=== PATIENT | female | born 1935 | race Caucasian/White ===

== ENCOUNTER 2017-05-04 10:00 | Outpatient (RCR) | payer MEDICARE, BC, SELFPAY ==
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
--- NOTE | 2017-05-15 07:23 | HP.PTDCNRP_ITS ---
HP - Discharge Summary (1) - Patient Information ADRIANNA SIDDIQUI was seen in my office for initial evaluation on 04/16/17. The following Plan of Care was established for this patient: Initial Frequency: 2x /Week Initial Duration: 4 Weeks - Anticipated Interventions Patient/Client Instruction: Educate patient on: Condition, Plan of Care For the Purpose of:: To decrease pain, To increase ROM, To improve muscle performance and motor function, To improve ability to perform ADL's, To increase tolerance to activity/condition/position, To improve ability of physical actions for home/community/work/leisure, To improve gait and locomotor functions, To improve health of tissue, To decrease soft tissue restriction, To increase flexibility/ROM, To improve endurance, To improve ability to perform tasks related to life management Therapeutic Exercise to Include: Strength training, Flexibilty training, Active ROM For the Purpose of:: To decrease pain, To increase ROM, To improve muscle performance and motor function, To increase tolerance to activity/condition/ position, To improve ability of physical actions for home/community/work/leisure , To improve gait and locomotor functions, To improve health of tissue, To decrease soft tissue restriction, To increase flexibility/ROM, To improve ability to perform tasks related to life management IF ES: Yes Cryotherapy (ice pack, ice massage): Yes Thermo therapy (hot pack): Yes Ultrasound (thermal/non thermal): Yes For the Purpose of:: To decrease pain, To increase ROM, To improve nutrient delivery to tissue, To increase oxygenation perfusion, To improve health of tissue, To decrease soft tissue restriction This patient was last seen in our office 05/04/17. Pertinent comments regarding their Physical therapy will appear below: This patient seen for knee pain for strengthening quad/hams ,ROM.flexablity. Patient is doing well progressing well with decreasing pain and improving function. At this point I will be discontinuing this patient from physical therapy. I would be happy to see this patient again in the future if found appropriate by the physician. Thank you! Win Cobb, PT,
== END 2017-05-04 19:00 | disposition home or self-care (01) ==
LOC: PT 10:00
PROVIDERS: Family Provider Family Medicine Geriatric Medicine; PCP Family Medicine Geriatric Medicine; Visit Provider Family Medicine Geriatric Medicine
DX: M17.9 Osteoarthritis of knee, unspecified (principal)
CPT/HCPCS: 97110; 97162

== ENCOUNTER → 2017-06-02 09:37 | Outpatient (CLI) | payer MEDICARE, BC, SELFPAY ==
--- NOTE | 2017-06-02 09:41 | VDLE_ITS ---
Reason For Study: venous insufficiency RIGHT LEFT CFV is compressible, spontaneous, phasic, CFV is compressible, spontaneous, phasic, competent and demonstrates normal competent, and demonstrates normal augmentation. augmentation. FV is compressible, spontaneous, phasic, FV is compressible, spontaneous, phasic, competent and demonstrates normal competent and demonstrates normal augmentation. augmentation. POP V is compressible, spontaneous, phasic, POP V is compressible, spontaneous, phasic, competent and demonstrates normal competent and demonstrates normal augmentation. augmentation. T/P Trunk is compressible. T/P Trunk is compressible. PTV is compressible. PTV is compressible. RT PerV is compressible. LT PerV is compressible. S-F Junction is incompetent for greater S-F Junction is incompetent for greater than .5 seconds. than .5 seconds. GSV is incompetent throughout for greater GSV is incompetent throughout for greater than .5 seconds. GSV measures .823 x .890 than .5 seconds. GSV measures .412 x .452 cm. cm. SSV is incompetent for greater than .5 SSV is incompetent for greater than .5 seconds. SSV measures .392 x .379 cm. seconds. SSV measures .183 x .208 cm. Procedure ASV at the mid thigh is incompetent for Exam performed in department. greater than .5 seconds. ASV measures .255 The exam was diagnostic. x .289 cm. Interpretation Summary Deep veins of the lower extremities are bilaterally patent and compressible segmentally. There is no evidence of deep vein thrombosis on either side. Valvular competence appears intact within the proximal deep venous systems bilaterally. The greater saphenous veins appear bilaterally patent and compressible segmentally. Sapheno-femoral junctions are bilaterally incompetent . Segmental valvular incompetence is noted within the greater saphenous veins bilaterally. Small saphenous veins are patent and incompetent bilaterally. The left accessory saphenous vein in the left mid- thigh is incompetent. Ordering Physician: Sandrita Cooley Performed By: Keegan Orozco RVDianne
--- NOTE | 2017-06-07 11:01 | LEAS ---
Arterial Study - Arterial Study Arterial Study: This is a 81-year-old female with a history of peripheral arterial occlusive disease. She is brought to the noninvasive vascular laboratory at this time for the purpose of bilateral noninvasive lower extremity arterial assessment. Doppler signal assessment was used to evaluate the pulses at ankle level bilaterally. The posterior tibial and dorsalis pedis pulses were triphasic bilaterally. Segmental limb pressures were obtained bilaterally. The right ankle pressure, as determined by posterior tibial pulse, was measured at 186 mmHg. The right ankle pressure, as determined by dorsalis pedis pulse, was measured at 170 mmHg. The right digital pressure was measured at 139 mmHg. The left ankle pressure, as determined by posterior tibial pulse, was measured at 186 mmHg. The left ankle pressure, as determined by dorsalis pedis pulse, was measured at 167 mmHg. The left digital pressure was measured at 141 mmHg. Pulse-volume recordings were obtained bilaterally and segmentally. Waveform amplitudes appeared to be satisfactory at all levels bilaterally, including low thigh, calf, ankle, and digital levels. Resting ankle-brachial indices were calculated bilaterally. The resting right ankle-brachial index was calculated to be 1.24. The resting left ankle-brachial index was calculated to be 1.24. Digital-brachial indices were calculated bilaterally. The right digital-brachial index was calculated to be 0.93. The left digital-brachial index was calculated be 0.94. Impression: Based upon the findings of this resting noninvasive lower extremity arterial study, there is no evidence of significant atherosclerotic peripheral arterial occlusive disease in the lower extremities bilaterally. Triphasic waveforms are noted at ankle level bilaterally. Resting ankle-brachial indices were bilaterally normal. Digital-brachial indices were also normal bilaterally. In summary, this represents a normal resting noninvasive lower extremity arterial study bilaterally.
--- NOTE | 2017-06-07 11:04 | LEAS_ITS ---
Arterial Study - Arterial Study Arterial Study: This is a 81-year-old female with a history of peripheral arterial occlusive disease. She is brought to the noninvasive vascular laboratory at this time for the purpose of bilateral noninvasive lower extremity arterial assessment. Doppler signal assessment was used to evaluate the pulses at ankle level bilaterally. The posterior tibial and dorsalis pedis pulses were triphasic bilaterally. Segmental limb pressures were obtained bilaterally. The right ankle pressure, as determined by posterior tibial pulse, was measured at 186 mmHg. The right ankle pressure, as determined by dorsalis pedis pulse, was measured at 170 mmHg. The right digital pressure was measured at 139 mmHg. The left ankle pressure, as determined by posterior tibial pulse, was measured at 186 mmHg. The left ankle pressure, as determined by dorsalis pedis pulse, was measured at 167 mmHg. The left digital pressure was measured at 141 mmHg. Pulse-volume recordings were obtained bilaterally and segmentally. Waveform amplitudes appeared to be satisfactory at all levels bilaterally, including low thigh, calf, ankle, and digital levels. Resting ankle-brachial indices were calculated bilaterally. The resting right ankle-brachial index was calculated to be 1.24. The resting left ankle- brachial index was calculated to be 1.24. Digital-brachial indices were calculated bilaterally. The right digital- brachial index was calculated to be 0.93. The left digital-brachial index was calculated be 0.94. Impression: Based upon the findings of this resting noninvasive lower extremity arterial study, there is no evidence of significant atherosclerotic peripheral arterial occlusive disease in the lower extremities bilaterally. Triphasic waveforms are noted at ankle level bilaterally. Resting ankle-brachial indices were bilaterally normal. Digital-brachial indices were also normal bilaterally. In summary, this represents a normal resting noninvasive lower extremity arterial study bilaterally.
== END ==
PROVIDERS: Family Provider Family Medicine Geriatric Medicine; PCP Family Medicine Geriatric Medicine; Visit Provider Podiatrist
DX: I70.213 Atherosclerosis of native arteries of extremities with intermittent claudication, bilateral legs (principal); I87.2 Venous insufficiency (chronic) (peripheral); R60.0 Localized edema; M79.604 Pain in right leg; M79.605 Pain in left leg; I73.89 Other specified peripheral vascular diseases
CPT/HCPCS: 93923; 93970

== ENCOUNTER → 2017-07-22 12:04 | Outpatient (CLI) | payer MEDICARE, BC, SELFPAY ==
[2017-07-22 13:13] LABS: Absolute Lymphocyte Count 1.21 X10^3/ul (0.83-4.51); Absolute Neutrophil Count 2.4 X10^3/uL (2.0-7.7); Basophil# 0.01 X10^3/uL; Basophil% 0.2 % (0-1); Eosinophil# 0.19 X10^3/uL; Eosinophils% 4.6 % (0-5); Hematocrit 35.7 % (37-47); Hemoglobin 11.4 g/dl (12.0-15.0); Lymphocyte # 1.21 X10^3/ul (4.0); Lymphocyte % 29.2 % (19-41); Mean Corp Hgb Conc 31.9 g/gl (32-36); Mean Corpuscular Hgb 30.2 pg (27.0-32.0); Mean Corpuscular Volume 94.4 fL (81-99); Mean Platelet Vol. 10.4 fl (6.2-12.0); Monocyte# 0.32 X10^3/uL; Monocyte% 7.7 % (0-10); Neutrophil % 58.1 % (47-70); POSITIVE COUNT NO; POSITIVE DIFFERENTIAL NO; POSITIVE MORPHOLOGY NO; Platelet Count 224 K/mm3 (150-450); RBC Distribution Width CV 13.6 % (11.6-14.6); RBC Distribution Width SD 44.2 fl (35.1-43.9); Red Blood Count 3.78 M/mm3 (4.2-5.4); White Blood Count 4.1 K/mm3 (4.4-11.0)
[2017-07-22 13:46] LABS: Vitamin D,25 Hydroxy 43.7 ng/mL (29.95-100.01)
[2017-07-22 13:55] LABS: ALB/GLOB Ratio 1.3 RATIO (0.9-2.4); AST(SGOT) 14 U/L (15-37); Alanine Aminotransfer ALT/SGPT 23 U/L (13-56); Albumin, Serum 3.9 g/dL (3.2-5.0); Alkaline Phosphatase 66 U/L (45-117); Anion Gap 7 (5-15); BUN 16 mg/dL (7-18); BUN/Creat Ratio 19.9 RATIO (10-20); Calcium,Total 9.1 mg/dL (8.5-10.1); Chloride 109 mmol/L (98-107); Creatinine, Serum 0.81 mg/dL (0.55-1.02); EST Glomerular Filtration Rate 73 mL/min (>60); Est Glom Filt Rate - Afr Amer 88 mL/min (>60); Globulin 3.1 g/dL (2.2-4.2); Glucose 116 mg/dL (74-106); Potassium 4.2 mmol/L (3.5-5.1); Sodium Level 144 mmol/L (136-145); Thyroid Stim Hormone (TSH) 0.54 uIU/mL (0.358-3.74)
== END ==
PROVIDERS: Family Provider Family Medicine Geriatric Medicine; PCP Family Medicine Geriatric Medicine; Visit Provider Family Medicine Geriatric Medicine
DX: E11.9 Type 2 diabetes mellitus without complications (principal); I10 Essential (primary) hypertension; E55.9 Vitamin D deficiency, unspecified
CPT/HCPCS: 36415; 80053; 82306; 84443; 85025

== ENCOUNTER → 2017-10-28 11:03 | Outpatient (CLI) | payer MEDICARE, BC, SELFPAY ==
[2017-10-28 12:34] LABS: Absolute Lymphocyte Count 1.28 X10^3/ul (0.83-4.51); Absolute Neutrophil Count 2.6 X10^3/uL (2.0-7.7); Basophil# 0.02 X10^3/uL; Basophil% 0.4 % (0-1); Eosinophil# 0.16 X10^3/uL; Eosinophils% 3.6 % (0-5); Hematocrit 33.8 % (37-47); Hemoglobin 11.2 g/dl (12.0-15.0); Lymphocyte # 1.28 X10^3/ul (4.0); Lymphocyte % 28.6 % (19-41); Mean Corp Hgb Conc 33.1 g/gl (32-36); Mean Corpuscular Volume 93.6 fL (81-99); Mean Platelet Vol. 10.3 fl (6.2-12.0); Monocyte# 0.42 X10^3/uL; Monocyte% 9.4 % (0-10); Neutrophil # 2.59 X10^3/uL (2.7-7.7); Platelet Count 227 K/mm3 (150-450); RBC Distribution Width CV 13.2 % (11.6-14.6); RBC Distribution Width SD 43.2 fl (35.1-43.9); Red Blood Count 3.61 M/mm3 (4.2-5.4); White Blood Count 4.5 K/mm3 (4.4-11.0)
[2017-10-28 12:37] LABS: POSITIVE COUNT NO; POSITIVE DIFFERENTIAL NO; POSITIVE MORPHOLOGY NO
[2017-10-28 12:55] LABS: Vitamin D,25 Hydroxy 32.2 ng/mL (29.95-100.01)
[2017-10-28 13:19] LABS: ALB/GLOB Ratio 1.2 RATIO (0.9-2.4); AST(SGOT) 15 U/L (15-37); Alanine Aminotransfer ALT/SGPT 26 U/L (13-56); Albumin, Serum 3.8 g/dL (3.2-5.0); Alkaline Phosphatase 73 U/L (45-117); Anion Gap 8 (5-15); BUN 18 mg/dL (7-18); BUN/Creat Ratio 19.5 RATIO (10-20); Calcium,Total 9.4 mg/dL (8.5-10.1); Chloride 106 mmol/L (98-107); Creatinine, Serum 0.92 mg/dL (0.55-1.02); EST Glomerular Filtration Rate 62 mL/min (>60); Est Glom Filt Rate - Afr Amer 75 mL/min (>60); Globulin 3.3 g/dL (2.2-4.2); Glucose 115 mg/dL (74-106); Potassium 4.3 mmol/L (3.5-5.1); Protein, Total 7.1 g/dL (6.4-8.2); Sodium Level 142 mmol/L (136-145); Thyroid Stim Hormone (TSH) 0.82 uIU/mL (0.358-3.74)
== END ==
PROVIDERS: Family Provider Family Medicine Geriatric Medicine; PCP Family Medicine Geriatric Medicine; Visit Provider Family Medicine Geriatric Medicine
DX: E11.9 Type 2 diabetes mellitus without complications (principal); E55.9 Vitamin D deficiency, unspecified; I10 Essential (primary) hypertension; N39.0 Urinary tract infection, site not specified
CPT/HCPCS: 36415; 80053; 82306; 84443; 85025; 87086; 87088

== ENCOUNTER → 2018-01-07 10:12 | Outpatient (CLI) | payer MEDICARE, BC, SELFPAY ==
[2018-01-07 12:24] LABS: Absolute Lymphocyte Count 1.24 X10^3/ul (0.83-4.51); Absolute Neutrophil Count 3.1 X10^3/uL (2.0-7.7); Basophil# 0.01 X10^3/uL; Basophil% 0.2 % (0-1); Eosinophil# 0.19 X10^3/uL; Eosinophils% 3.8 % (0-5); Hematocrit 34.6 % (37-47); Hemoglobin 11.1 g/dl (12.0-15.0); Lymphocyte # 1.24 X10^3/ul (4.0); Lymphocyte % 25.1 % (19-41); Mean Corp Hgb Conc 32.1 g/gl (32-36); Mean Corpuscular Hgb 30.3 pg (27.0-32.0); Mean Corpuscular Volume 94.5 fL (81-99); Mean Platelet Vol. 10.4 fl (6.2-12.0); Monocyte# 0.38 X10^3/uL; Monocyte% 7.7 % (0-10); Neutrophil # 3.11 X10^3/uL (2.7-7.7); Platelet Count 211 K/mm3 (150-450); RBC Distribution Width CV 13.2 % (11.6-14.6); RBC Distribution Width SD 43.7 fl (35.1-43.9); Red Blood Count 3.66 M/mm3 (4.2-5.4); White Blood Count 4.9 K/mm3 (4.4-11.0)
[2018-01-07 12:28] LABS: POSITIVE COUNT NO; POSITIVE DIFFERENTIAL NO; POSITIVE MORPHOLOGY NO
[2018-01-07 12:39] LABS: Vitamin D,25 Hydroxy 38.6 ng/mL (29.95-100.01)
[2018-01-07 12:42] LABS: ALB/GLOB Ratio 1.1 RATIO (0.9-2.4); AST(SGOT) 16 U/L (15-37); Alanine Aminotransfer ALT/SGPT 25 U/L (13-56); Albumin, Serum 3.8 g/dL (3.2-5.0); Alkaline Phosphatase 72 U/L (45-117); Anion Gap 7 (5-15); BUN 17 mg/dL (7-18); BUN/Creat Ratio 18.9 RATIO (10-20); Calcium,Total 9.2 mg/dL (8.5-10.1); Chloride 106 mmol/L (98-107); EST Glomerular Filtration Rate 64 mL/min (>60); Est Glom Filt Rate - Afr Amer 77 mL/min (>60); Globulin 3.4 g/dL (2.2-4.2); Glucose 118 mg/dL (74-106); Potassium 4.2 mmol/L (3.5-5.1); Protein, Total 7.2 g/dL (6.4-8.2); Sodium Level 142 mmol/L (136-145); Thyroid Stim Hormone (TSH) 0.44 uIU/mL (0.358-3.74)
== END ==
PROVIDERS: Family Provider Family Medicine Geriatric Medicine; PCP Family Medicine Geriatric Medicine; Visit Provider Family Medicine Geriatric Medicine
DX: E11.9 Type 2 diabetes mellitus without complications (principal); E55.9 Vitamin D deficiency, unspecified; I10 Essential (primary) hypertension
CPT/HCPCS: 36415; 80053; 82306; 84443; 85025

== ENCOUNTER → 2018-07-08 12:14 | Outpatient (CLI) | payer MEDICARE, BC, SELFPAY ==
[2018-07-08 14:30] LABS: Absolute Lymphocyte Count 1.42 X10^3/ul (0.83-4.51); Absolute Neutrophil Count 2.9 X10^3/uL (2.0-7.7); Basophil# 0.01 X10^3/uL; Basophil% 0.2 % (0-1); Eosinophil# 0.21 X10^3/uL; Eosinophils% 4.3 % (0-5); Hematocrit 36.9 % (37-47); Hemoglobin 11.8 g/dl (12.0-15.0); Lymphocyte # 1.42 X10^3/ul (4.0); Lymphocyte % 29.1 % (19-41); Mean Corpuscular Hgb 29.9 pg (27.0-32.0); Mean Corpuscular Volume 93.4 fL (81-99); Mean Platelet Vol. 10.5 fl (6.2-12.0); Monocyte# 0.38 X10^3/uL; Monocyte% 7.8 % (0-10); Neutrophil # 2.86 X10^3/uL (2.7-7.7); Neutrophil % 58.6 % (47-70); Platelet Count 230 K/mm3 (150-450); RBC Distribution Width CV 13.6 % (11.6-14.6); RBC Distribution Width SD 45.1 fl (35.1-43.9); Red Blood Count 3.95 M/mm3 (4.2-5.4); White Blood Count 4.9 K/mm3 (4.4-11.0)
[2018-07-08 14:32] LABS: POSITIVE COUNT NO; POSITIVE DIFFERENTIAL NO; POSITIVE MORPHOLOGY NO
[2018-07-08 15:01] LABS: ALB/GLOB Ratio 1.1 RATIO (0.9-2.4); AST(SGOT) 16 U/L (15-37); Alanine Aminotransfer ALT/SGPT 23 U/L (13-56); Alkaline Phosphatase 79 U/L (45-117); Anion Gap 7 (5-15); BUN 17 mg/dL (7-18); BUN/Creat Ratio 19.3 RATIO (10-20); Calcium,Total 9.5 mg/dL (8.5-10.1); Chloride 106 mmol/L (98-107); Creatinine, Serum 0.88 mg/dL (0.55-1.02); EST Glomerular Filtration Rate 65 mL/min (>60); Est Glom Filt Rate - Afr Amer 79 mL/min (>60); Globulin 3.6 g/dL (2.2-4.2); Glucose 121 mg/dL (74-106); Potassium 4.4 mmol/L (3.5-5.1); Protein, Total 7.6 g/dL (6.4-8.2); Sodium Level 142 mmol/L (136-145); Thyroid Stim Hormone (TSH) 2.01 uIU/mL (0.358-3.74); Vitamin D,25 Hydroxy 30.5 ng/mL (29.95-100.01)
== END ==
PROVIDERS: Family Provider Family Medicine Geriatric Medicine; PCP Family Medicine Geriatric Medicine; Visit Provider Family Medicine Geriatric Medicine
DX: E11.9 Type 2 diabetes mellitus without complications (principal); E55.9 Vitamin D deficiency, unspecified; I10 Essential (primary) hypertension
CPT/HCPCS: 36415; 80053; 82306; 84443; 85025

== ENCOUNTER → 2019-01-17 09:11 | Outpatient (CLI) | payer MEDICARE, BC, SELFPAY ==
[2019-01-17 12:32] LABS: Absolute Lymphocyte Count 1.39 X10^3/uL (0.83-4.51); Absolute Neutrophil Count 2.8 X10^3/uL (2.0-7.7); Basophil# 0.03 X10^3/uL; Basophil% 0.6 % (0-1); Eosinophil# 0.15 X10^3/uL; Eosinophils% 3.1 % (0-5); Hematocrit 38.4 % (37-47); Hemoglobin 12.1 g/dL (12.0-15.0); Lymphocyte # 1.39 X10^3/ul (4.0); Lymphocyte % 28.6 % (19-41); Mean Corp Hgb Conc 31.5 g/dL (32-36); Mean Corpuscular Hgb 30.2 pg (27.0-32.0); Mean Corpuscular Volume 95.8 fL (81-99); Monocyte# 0.43 X10^3/uL; Monocyte% 8.8 % (0-10); NRBC Flagged by Analyzer 0 % (0-5); Neutrophil # 2.84 X10^3/uL (2.7-7.7); Neutrophil % 58.5 % (47-70); Platelet Count 224 K/mm3 (150-450); RBC Distribution Width CV 13.2 % (11.6-14.6); RBC Distribution Width SD 46.5 fl (35.1-43.9); Red Blood Count 4.01 M/mm3 (4.2-5.4); White Blood Count 4.9 K/mm3 (4.4-11.0)
[2019-01-17 12:41] LABS: ALB/GLOB Ratio 1.2 RATIO (0.9-2.4); AST(SGOT) 16 U/L (15-37); Alanine Aminotransfer ALT/SGPT 21 U/L (13-56); Albumin, Serum 4.1 g/dL (3.2-5.0); Alkaline Phosphatase 73 U/L (45-117); Anion Gap 8 (5-15); BUN 18 mg/dL (7-18); Calcium,Total 9.5 mg/dL (8.5-10.1); Chloride 105 mmol/L (98-107); Creatinine, Serum 0.95 mg/dL (0.55-1.02); EST Glomerular Filtration Rate 60 mL/min (>60); Est Glom Filt Rate - Afr Amer 73 mL/min (>60); Globulin 3.3 g/dL (2.2-4.2); Glucose 119 mg/dL (74-106); Potassium 4.2 mmol/L (3.5-5.1); Protein, Total 7.4 g/dL (6.4-8.2); Sodium Level 140 mmol/L (136-145); Thyroid Stim Hormone (TSH) 1.55 uIU/mL (0.358-3.74)
[2019-01-17 12:42] LABS: Vitamin D,25 Hydroxy 23.3 ng/mL (29.95-100.01)
== END ==
PROVIDERS: Family Provider Family Medicine Geriatric Medicine; PCP Family Medicine Geriatric Medicine; Visit Provider Family Medicine Geriatric Medicine
DX: E11.9 Type 2 diabetes mellitus without complications (principal); E55.9 Vitamin D deficiency, unspecified; I10 Essential (primary) hypertension
CPT/HCPCS: 36415; 80053; 82306; 84443; 85025

== ENCOUNTER → 2019-08-17 | Outpatient (CLI) | payer MEDICARE, OTHER, SELFPAY ==
[2019-08-17 12:24] LABS: Absolute Lymphocyte Count 1.26 X10^3/uL (0.83-4.51); Absolute Neutrophil Count 3.1 X10^3/uL (2.0-7.7); Basophil# 0.03 X10^3/uL; Basophil% 0.6 % (0-1); Eosinophil# 0.19 X10^3/uL; Eosinophils% 3.8 % (0-5); Hematocrit 37.7 % (37-47); Lymphocyte # 1.26 X10^3/ul (4.0); Mean Corp Hgb Conc 31.8 g/dL (32-36); Mean Corpuscular Hgb 30.2 pg (27.0-32.0); Mean Platelet Vol. 10.6 fl (6.2-12.0); Monocyte# 0.42 X10^3/uL; Monocyte% 8.3 % (0-10); NRBC Flagged by Analyzer 0 % (0-5); Neutrophil # 3.11 X10^3/uL (2.7-7.7); Neutrophil % 61.9 % (47-70); Platelet Count 210 K/mm3 (150-450); RBC Distribution Width CV 13.2 % (11.6-14.6); RBC Distribution Width SD 45.9 fl (35.1-43.9); Red Blood Count 3.97 M/mm3 (4.2-5.4)
[2019-08-17 12:50] LABS: ALB/GLOB Ratio 1.1 RATIO (0.9-2.4); AST(SGOT) 17 U/L (15-37); Alanine Aminotransfer ALT/SGPT 29 U/L (13-56); Alkaline Phosphatase 79 U/L (45-117); Anion Gap 8 (5-15); BUN 19 mg/dL (7-18); BUN/Creat Ratio 18.6 RATIO (10-20); Calcium,Total 9.8 mg/dL (8.5-10.1); Chloride 103 mmol/L (98-107); Creatinine, Serum 1.02 mg/dL (0.55-1.02); EST Glomerular Filtration Rate 55 mL/min (>60); Est Glom Filt Rate - Afr Amer 67 mL/min (>60); Globulin 3.6 g/dL (2.2-4.2); Glucose 136 mg/dL (74-106); Potassium 4.2 mmol/L (3.5-5.1); Protein, Total 7.6 g/dL (6.4-8.2); Sodium Level 140 mmol/L (136-145); Thyroid Stim Hormone (TSH) 0.84 uIU/mL (0.358-3.74)
== END | disposition home or self-care (01) ==
PROVIDERS: PCP Family Medicine Geriatric Medicine; Visit Provider Family Medicine Geriatric Medicine
DX: E11.9 Type 2 diabetes mellitus without complications (principal); E55.9 Vitamin D deficiency, unspecified; I10 Essential (primary) hypertension
CPT/HCPCS: 36415; 80053; 82306; 84443; 85025

== ENCOUNTER → 2020-01-19 | Outpatient (CLI) | payer MEDICARE, OTHER, SELFPAY ==
[2020-01-19 12:41] LABS: Absolute Lymphocyte Count 1.07 X10^3/uL (0.83-4.51); Absolute Neutrophil Count 2.8 X10^3/uL (2.0-7.7); Basophil# 0.02 X10^3/uL; Basophil% 0.5 % (0-1); Eosinophil# 0.19 X10^3/uL; Eosinophils% 4.3 % (0-5); Hematocrit 37.9 % (37-47); Hemoglobin 11.8 g/dL (12.0-15.0); Lymphocyte # 1.07 X10^3/ul (4.0); Lymphocyte % 24.2 % (19-41); Mean Corp Hgb Conc 31.1 g/dL (32-36); Mean Corpuscular Hgb 30.1 pg (27.0-32.0); Mean Corpuscular Volume 96.7 fL (81-99); Mean Platelet Vol. 10.1 fl (6.2-12.0); Monocyte# 0.34 X10^3/uL; Monocyte% 7.7 % (0-10); NRBC Flagged by Analyzer 0 % (0-5); Neutrophil % 63.1 % (47-70); Platelet Count 201 K/mm3 (150-450); RBC Distribution Width CV 13.1 % (11.6-14.6); RBC Distribution Width SD 46.4 fl (35.1-43.9); Red Blood Count 3.92 M/mm3 (4.2-5.4); White Blood Count 4.4 K/mm3 (4.4-11.0)
[2020-01-19 12:49] LABS: Vitamin D,25 Hydroxy 19.5 ng/mL
[2020-01-19 13:03] LABS: ALB/GLOB Ratio 1.1 RATIO (0.9-2.4); AST(SGOT) 17 U/L (15-37); Alanine Aminotransfer ALT/SGPT 28 U/L (13-56); Albumin, Serum 3.9 g/dL (3.2-5.0); Alkaline Phosphatase 77 U/L (45-117); Anion Gap 4 (5-15); BUN 19 mg/dL (7-18); BUN/Creat Ratio 19.4 RATIO (10-20); Calcium,Total 9.4 mg/dL (8.5-10.1); Chloride 105 mmol/L (98-107); Creatinine, Serum 0.98 mg/dL (0.55-1.02); EST Glomerular Filtration Rate 58 mL/min (>60); Est Glom Filt Rate - Afr Amer 70 mL/min (>60); Globulin 3.4 g/dL (2.2-4.2); Glucose 120 mg/dL (74-106); Potassium 4.2 mmol/L (3.5-5.1); Protein, Total 7.3 g/dL (6.4-8.2); Sodium Level 139 mmol/L (136-145); Thyroid Stim Hormone (TSH) 1.21 uIU/mL (0.358-3.74)
== END | disposition home or self-care (01) ==
LOC: POLAB3 09:42
PROVIDERS: PCP Family Medicine Geriatric Medicine; Visit Provider Family Medicine Geriatric Medicine
DX: E11.9 Type 2 diabetes mellitus without complications (principal); E55.9 Vitamin D deficiency, unspecified; I10 Essential (primary) hypertension
CPT/HCPCS: 36415; 80053; 82306; 84443; 85025

== ENCOUNTER 2020-02-05 10:37 | Inpatient (IN) | payer MEDICARE, OTHER, SELFPAY ==
[2020-02-05] VITALS (16 sets, daily range): BP systolic 116–168; BP diastolic 59–101; PULSE 79–89; RESP 12–18; TEMP 35.9–37.1; O2SAT 95–100; BMI 37.6; BMI 27.6; BMI 27.7
--- NOTE | 2020-02-05 10:40 | RAD_ITS ---
STUDY: X-RAY CHEST REASON FOR EXAM: Female, 84 years old. Stroke, weakness. TECHNIQUE: AP COMPARISON: None. FINDINGS: EKG leads project over the chest. The lungs are clear and expanded. There is no demonstrated pleural abnormality. Normal size heart. Normal mediastinum and henri. Normal visualized pulmonary arteries. There is atherosclerotic calcification of the aortic arch with tortuosity. Normal visualized thoracic spine. Normal visualized ribs, clavicles, and shoulders. There is no demonstrated abnormality of the visualized soft tissue structures of the upper abdomen. RAD/Chest 1 View IMPRESSION: Stable, nonacute portable x-ray examination of the chest. Electronically Signed: Jose Diaz MD (Brooks) at 12:34 EST , Service support ,
--- NOTE | 2020-02-05 10:40 | EKG12_ITS ---
Test Reason : STROKE Blood Pressure : / mmHG Vent. Rate : 085 BPM Atrial Rate : 085 BPM P-R Int : 178 ms QRS Dur : 090 ms QT Int : 380 ms P-R-T Axes : 057 054 053 degrees QTc Int : 452 ms Normal sinus rhythm Normal ECG Confirmed by OTONIEL ALVARADO, KAROLINE ([id number]), editor farm journal WILLIAN BALLESTEROS ([id number]) on 02/07/2020 11:25:55 AM Referred By: LINNEA Confirmed By:KAROLINE FREDERICK MD
--- NOTE | 2020-02-05 10:40 | CT_ITS ---
STUDY: CT BRAIN WITHOUT CONTRAST REASON FOR EXAM: Female, 84 years old. STROKE RADIATION DOSAGE (If Supplied By Facility): CTDIvol = ( 60.81 ) mGy, DLP = ( 1089.89 ) mGycm TECHNIQUE: Transaxial CT imaging of the brain was performed without administration of intravenous contrast material. Individualized dose optimization techniques were used for this CT. COMPARISON: No relevant priors. FINDINGS: Normal soft tissue structures. Normal calvarium. There is moderate cerebral atrophy with widening of the extra-axial spaces and ventricular dilatation. There are areas of decreased attenuation within the white matter tracts of the supratentorial brain, consistent with microvascular disease changes. 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 Normal brainstem. Normal cerebellum. There is no intracranial hemorrhage. There are no findings of an acute ischemic infarction. Normal visualized paranasal sinuses. CT/Brain/Head without Contrast IMPRESSION: Chronic involutional changes of the brain. N.B. : The above information has been verbally conveyed by Refugio Lau MD to Dr. Manny Morrison;[id number], on 02/05/2020 11:01:35 (ET). Electronically Signed: Refugio Lau MD at 11:02 EST , Service support ,
--- NOTE | 2020-02-05 10:41 | ED.DCSUM_ITS ---
History of Present Illness Chief Complaint: Neuro S/Sx Narrative: Patient is an 84-year-old female who presents with left hand numbness. She also complains of tingling around her mouth as well as a headache. Symptoms began acutely about 30 to 45 minutes ago. No history of prior similar symptoms. She otherwise denies recent illness. No chest pain or shortness of breath. No fevers. No cough. She does have a history of diabetes, hypertension, hyperlipidemia. She takes a baby aspirin a day no other anticoagulation. Past Medical History - Allergies and Home Meds Allergies/Adverse Reactions: Allergies Penicillins Allergy (Verified 02/05/20 11:01) Pain in joints Sulfa (Sulfonamide Antibiotics) Allergy (Verified 02/05/20 11:01) Hives Primary Care Physician: Ap Morelos Chi, MD [Primary Care Provider] - Past Medical History: - - Diabetes, hypertension, hyperlipidemia Review of Systems All systems negative except as indicated General: Denies: Fever Eyes: Denies: Visual changes - bilaterally ENT: Denies: Bilateral ear pain Cardiovascular: Denies: Chest pain Respiratory: Denies: Dyspnea Gastrointestinal: Denies: Abdominal pain, Nausea, Vomiting Musculoskeletal: Denies: Myalgias, Arthralgias Skin: Denies: Rash Neurological: Reports: Headache, Weakness, Parasthesia, Numbness Hematologic: Denies: Easy bruising Allergy: Denies: Uticaria Physical Exam Inital Vital Signs reviewed: Yes General: Well nourished, Well developed Head: Normocephalic Eyes: EOMI ENT: Moist mucous membranes Neck: Supple Cardiovascular: Regular rate, Regular rhythm Respiratory: No distress, CTA bilaterally Abdomen: Soft, Nontender Extremities: Nontender Skin: Normal color Neurological: Alert, - - NIH stroke scale is 5. She has drift with all 4 extremities. This appears to be symmetric bilaterally she has more of a global weakness. No facial droop. Her speech is clear. She does report decreased sensation to light touch of the left arm and left leg. Psychological: - - Patient is anxious Diagnostic/Tx/Re-eval Impressions Brain CT 02/05/20 10:40 IMPRESSION: Chronic involutional changes of the brain. N.B. : The above information has been verbally conveyed by Refugio Lau MD to Dr. Manny Morrison;[id number], on 02/05/2020 11:01:35 (ET). Electronically Signed: Refugio Lau MD at 11:02 EST , Service support , ADDENDUM: 02/05/20 1109 IMPRESSION: Chronic involutional changes of the brain. N.B. : The above information has been verbally conveyed by Refugio Lau MD to Dr. Manny Morrison;[id number], on 02/05/2020 11:01:35 (ET). Electronically Signed: Refugio Lau MD at 11:02 EST , Service support , Head/Neck CTA 02/05/20 11:02 IMPRESSION: 1. No large vessel occlusion or intracranial aneurysm. 2. Bilateral carotid bulb and proximal ICA atherosclerosis without hemodynamically significant stenosis. No arterial dissection. N.B. : The above information has been verbally conveyed by Jose Diaz MD (Brooks) to Manny Morrison MD, on 02/05/2020 11:40:00 (ET). Electronically Signed: Jose Diaz MD (Brooks) at 11:45 EST , Service support , ADDENDUM: 02/05/20 1152 IMPRESSION: 1. No large vessel occlusion or intracranial aneurysm. 2. Bilateral carotid bulb and proximal ICA atherosclerosis without hemodynamically significant stenosis. No arterial dissection. N.B. : The above information has been verbally conveyed by Jose Diaz MD (Brooks) to Manny Morrison MD, on 02/05/2020 11:40:00 (ET). Electronically Signed: Jose Diaz MD (Brooks) at 11:45 EST , Service support , 02/05/20 10:40 Brain/Head without Contrast [CT] Stat Chest 1 View [RAD] Stat 02/05/20 11:02 CTA Head AND Neck W/ Contrast [CT] Stat Laboratory Results 02/05/20 02/05/20 02/05/20 10:50 10:50 10:50 WBC 4.8 RBC 3.81 L Hgb 12.1 Hct 37.4 MCV 98.2 MCH 31.8 MCHC 32.4 RDW Std Deviation 46.5 H RDW Coeff of Shaq 13.1 Plt Count 193 MPV 9.6 Immature Gran % (Auto) 0.600 Neut % (Auto) 67.7 Lymph % (Auto) 22.1 Holmes % (Auto) 6.5 Eos % (Auto) 2.7 Baso % (Auto) 0.4 Absolute Neuts (auto) 3.2 Absolute Lymphs (auto) 1.05 Nucleated RBC % 0 PT 12.7 INR 1.0 APTT 25.4 Sodium 144 Potassium 4.0 Chloride 107 Carbon Dioxide 29.0 Anion Gap 8 BUN 14 Creatinine 1.03 H Estim Creat Clear Calc 34.83 Est GFR (MDRD) Af Amer 66 Est GFR (MDRD) Non-Af 55 L BUN/Creatinine Ratio 13.6 Glucose 167 H Calcium 8.9 Troponin I < 0.015 - Medical Decision Making EKG shows normal sinus rhythm at a rate of 85 with no acute ischemic changes. Stroke team was called on the patient's arrival. Her NIH would technically be 5 however she has global strength she has drift in all 4 extremities is not really lateralizing. Her only lateralizing symptom is decreased sensation light touch of left arm and left leg. Initial head CT without contrast is negative. I spoke to the stroke neurologist at [facility] who agrees the patient is not a candidate for TPA. They recommended obtaining CT angiogram to rule out a large vessel occlusion and if this is negative can be admitted here for usual work-up. CT angiograms were negative. Labs are unremarkable. Patient discussed with the hospitalist and admitted. ED Disposition - Plan for ED Patient: Disposition: Acute Care Hospital [facility] Diagnosis: Paresthesias, Left arm weakness Referrals: Ap Morelos Chi, MD [Primary Care Provider] -
--- NOTE | 2020-02-05 11:02 | CT_ITS ---
STUDY: CTA HEAD AND NECK WITH CONTRAST REASON FOR EXAM: Female, 84 years old. STROKE RADIATION DOSAGE (If Supplied By Facility): CTDIvol = ( 11.86 ) mGy, DLP = ( 588.03 ) mGycm TECHNIQUE: CT angiography was performed with a multi-detector CT scanner. Data acquisition was obtained from the skull base through the vertex following intravenous administration of IV 100mL Isovue-370. MIP images were reconstructed from the axial data set. Post-processing of the angiographic images was performed, with multiplanar reformation and 3D reconstruction. Degree of stenosis (when present) measured utilizing NASCET criteria. Individualized dose optimization techniques were used for this CT. COMPARISON: Head CT earlier today FINDINGS: Normal bilateral petrous carotid arteries. There is calcified plaque formation of the right cavernous carotid artery, without a cross-sectional luminal stenosis. There is calcified plaque formation of the left cavernous carotid artery, without a cross-sectional luminal stenosis. There is hypoplastic development of the right A1 segment of the anterior cerebral arteries with an atretic but intact artery. Normal left A1 segments of the anterior cerebral artery. Normal intact anterior communicating artery (ACOM). Normal bilateral A2 segments of the anterior cerebral arteries. Normal right M1 and M2 segments of the middle cerebral arteries, with a normal M1 bifurcation. Normal left M1 and M2 segments of the middle cerebral arteries, with a normal M1 bifurcation. Normal right posterior communicating artery (PCOM). There is non-visualization of the left posterior communicating artery (PCOM). Normal bilateral vertebral arteries. Normal basilar artery with a normal basilar bifurcation. The visualized bilateral superior cerebellar (SCA) arteries are normal. Normal bilateral P1, P2 and visualized P3 segments of the posterior cerebral arteries. There is no demonstrated aneurysm of the cahto of [place]. There is no demonstrated abnormality of the visualized brain. AORTIC ARCH: Mild atherosclerosis of the aortic arch. Normal origins of the brachiocephalic, left common carotid, and left subclavian arteries. RIGHT CAROTID ARTERIES: There is atherosclerotic tortuous elongation of the right common carotid artery. There is mild atherosclerotic plaque formation with minimal narrowing of the right carotid bulb. There is mild atherosclerotic plaque formation of the origin of the right internal carotid artery with less than 20% diameter stenosis. There is atherosclerotic tortuous elongation of the cervical portion of the right internal carotid artery. Normal origin of the right external carotid artery (ECA). LEFT CAROTID ARTERIES: There is atherosclerotic tortuous elongation of the left common carotid artery. There is mild atherosclerotic plaque formation with minimal narrowing of the left carotid bulb. There is mild atherosclerotic plaque formation of the origin of the left internal carotid artery with 30% stenosis. There is atherosclerotic tortuous elongation of the cervical portion of the left internal carotid artery. Normal origin of the left external carotid artery (ECA). VERTEBRAL ARTERIES: Normal bilateral vertebral arteries. There are degenerative changes of the cervical spine with canal and foraminal narrowing. CT/CTA Head AND Neck W/ Contrast IMPRESSION: 1. No large vessel occlusion or intracranial aneurysm. 2. Bilateral carotid bulb and proximal ICA atherosclerosis without hemodynamically significant stenosis. No arterial dissection. N.B. : The above information has been verbally conveyed by Jose Diaz MD (Brooks) to Manny Morrison MD, on 02/05/2020 11:40:00 (ET). Electronically Signed: Jose Diaz MD (Brooks) at 11:45 EST , Service support ,
[2020-02-05 11:05] LABS: Absolute Lymphocyte Count 1.05 X10^3/uL (0.83-4.51); Absolute Neutrophil Count 3.2 X10^3/uL (2.0-7.7); Basophil# 0.02 X10^3/uL; Basophil% 0.4 % (0-1); Eosinophil# 0.13 X10^3/uL; Eosinophils% 2.7 % (0-5); Hematocrit 37.4 % (37-47); Hemoglobin 12.1 g/dL (12.0-15.0); Lymphocyte # 1.05 X10^3/ul (4.0); Lymphocyte % 22.1 % (19-41); Mean Corp Hgb Conc 32.4 g/dL (32-36); Mean Corpuscular Hgb 31.8 pg (27.0-32.0); Mean Corpuscular Volume 98.2 fL (81-99); Mean Platelet Vol. 9.6 fl (6.2-12.0); Monocyte# 0.31 X10^3/uL; Monocyte% 6.5 % (0-10); NRBC Flagged by Analyzer 0 % (0-5); Neutrophil # 3.21 X10^3/uL (2.7-7.7); Neutrophil % 67.7 % (47-70); Platelet Count 193 K/mm3 (150-450); RBC Distribution Width CV 13.1 % (11.6-14.6); RBC Distribution Width SD 46.5 fl (35.1-43.9); Red Blood Count 3.81 M/mm3 (4.2-5.4); White Blood Count 4.8 K/mm3 (4.4-11.0)
[2020-02-05 11:08] LABS: Prothrombin Time (Protime)PT. 12.7 SECONDS (11.7-14.9)
[2020-02-05 11:09] LABS: Partial Thromboplast Time 25.4 Seconds (24.1-36.2)
[2020-02-05 11:18] LABS: Anion Gap 8 (5-15); BUN 14 mg/dL (7-18); BUN/Creat Ratio 13.6 RATIO (10-20); Calcium,Total 8.9 mg/dL (8.5-10.1); Chloride 107 mmol/L (98-107); Creatinine, Serum 1.03 mg/dL (0.55-1.02); EST Glomerular Filtration Rate 55 mL/min (>60); Est Glom Filt Rate - Afr Amer 66 mL/min (>60); Estimated Creatinine Clearance 34.83 ml/min; Glucose 167 mg/dL (74-106); Sodium Level 144 mmol/L (136-145)
--- NOTE | 2020-02-05 12:30 | HP.PCM_ITS ---
Problem List (1) Hypertensive urgency Status: Acute (2) Left arm weakness Status: Acute (3) Paresthesias Status: Acute (4) Hypertension Status: Chronic Qualifiers: Hypertension type: unspecified Qualified Code(s): I10 - Essential (primary) hypertension (5) DM type 2 (diabetes mellitus, type 2) Status: Chronic Qualifiers: Diabetes mellitus fci insulin use: without fci use Diabetes mellitus complication status: with other specified complication Qualified Code(s): E11.69 - Type 2 diabetes mellitus with other specified complication (6) Hypothyroidism Status: Chronic Qualifiers: Hypothyroidism type: unspecified Qualified Code(s): E03.9 - Hypothyroidism, unspecified History of Present Illness Date of Admission: 02/05/20 Chief Complaint: Left arm and periorbital tingling and numbness - 1 day The patient is a 84 year old F with past medical history of type II DM, hypertension, hypothyroidism who comes in with complaints of sudden onset of perioral numbness as well as left upper extremity weakness with numbness. She was in her usual state of health when she woke up this morning. She said around 10:30 in the morning, she noticed that she had numbness around the mouth as well as in the left upper extremity. She presented to the emergency room about 30 to 40 minutes later. She is on an aspirin. In the emergency room she was found to be generally weak, NIHSS score was 5. Stroke alert was called. Patient had emergent CTA of the head and neck that was negative for large vessel occlusion In the ED showed temperature 96.7 F, heart rate 89, blood pressure 166/71, respiratory rate 16, SPO2 was 100% on room air. Admitting blood work showed RBC count of 4.8, hemoglobin 12.1, platelet count 193, INR 1.0, BMP was unremarkable except for creatinine of 1.03. Baseline creatinine is less than 1. TSH was 0.83. Troponins x2 were negative. Admitting EKG showed normal sinus rhythm without any acute ST-T changes. CT scan of brain showed chronic involutional changes of the brain. Chest x-ray showed no acute abnormality. At time of being seen, patient denied any more tingling or numbness. She stated she was claustrophobic. Past Medical History Past Medical History (Chronic Problems): Chronic Problems (This Medical Record has been edited. Action required.) Hypertension (Chronic) DM type 2 (diabetes mellitus, type 2) (Chronic) Hypothyroidism (Chronic) Allergies Penicillins Allergy (Verified 02/05/20 11:01) Pain in joints Sulfa (Sulfonamide Antibiotics) Allergy (Verified 02/05/20 11:01) Hives Home Medications: Ambulatory Orders Medication Instructions Recorded Amlodipine [Norvasc] 5 mg PO DAILY 02/05/20 Aspirin [Aspirin, Baby] 81 mg PO DAILY@0800 02/05/20 Atorvastatin Calcium 20 mg PO QHS 02/05/20 Gabapentin 300 mg PO QHS 02/05/20 Levothyroxine Sodium 88 mcg PO DAILY 02/05/20 Meloxicam [Mobic] 15 mg PO DAILY 02/05/20 Metformin HCl [Glucophage] 500 mg PO DAILY 02/05/20 Surgical History: - - D&C x2 Psychiatric History: No pertinent psych hx 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 Lives: With Family Smoking Status: Never smoker Tobacco Use: Non-smoker Alcohol: None Drugs: None - *Family History Maternal History Items: No pertinent history Paternal History Items: No pertinent history Review of Systems Constitutional: Denies: Anorexia, Chills, Fever, Malaise, Weakness, Weight Change, Fatigue Eyes: Denies: Blurred vision, Cataracts, Conjunctivae Inflammation HEENT: Denies: Difficulty Hearing, Difficulty Swallowing, Head Aches, Hearing Changes, Sinus Congestion, Sinus Drainage Cardiovascular: Denies: Chest Pain, Claudication, Orthopnea, Palpitations Respiratory: Denies: Cough, Hemoptysis, Shortness of breath at rest, Shortness of breath upon exertion, Sputum production Gastrointestinal: Denies: Abdominal Pain, Hematemesis, Hematochezia, Nausea, Vomiting Genitourinary: Denies: Dysuria, Frequency, Incontinence Musculoskeletal: Denies: Joint Pain, Joint stiffness, Joint swelling, Joint Tenderness Skin: Denies: Rash, Wounds Neurological: Reports: Numbness, Tingling. Denies: Blurred vision, Slurred speech, Confusion, Difficulty swallowing, Focal weakness, Incoordination, Tremor, Seizures Psychiatric: Denies: Anxiety, Depression, Homicidal Ideations, Suicidal Ideations Hematologic/ Lymphatic: Denies: Easy Bruising, Easy Bleeding VTE Information - Inpt Only VTE Present on Admission: No VTE Pharm Prophylaxis ordered?: Yes Patient Problems: Active and Suspected Problems (This Medical Record has been edited. Action required.) Paresthesias (Acute) Left arm weakness (Acute) Hypertensive urgency (Acute) - Physical Exam Vitals/I&O's: Vital Signs Temp Pulse Resp BP Pulse Ox 96.7 F L 85 17 150/66 H 99 02/05/20 10:50 02/05/20 12:00 02/05/20 12:00 02/05/20 12:00 02/05/20 12:00 Oxygen Flow Rate (L/min) 2 Oxygen Delivery Method Nasal Cannula Weight: 96.4 kg Body Mass Index (BMI) 37.6 Finger Stick Blood Glucose 150 General: Alert, Oriented x3, Cooperative, No apparent distress HEENT: Atraumatic, PERRLA, EOMI, Normocephalic Oral: Moist Mucosa Neck: Supple Lungs: Clear to auscultation, Normal air movement Cardiovascular: Regular rate, Regular Rhythm, Normal S1, Normal S2, No murmurs Abdomen: Bowel Sounds Present, Soft, Non Tender, Non-Distended Extremities: No edema Skin: No rashes, No breakdown Musculoskeletal: No Tenderness to Palpation of Joints or Extremities Lymphatic: No Cervical, Supraclavicular, or Inguinal Adenopathy Neurological: Cranial nerves II-XII grossly intact, Neuro grossly intact Psych/Mental Status: Normal Affect, Appropriate Laboratory Results 02/05/20 10:50: WBC 4.8, RBC 3.81 L, Hgb 12.1, Hct 37.4, MCV 98.2, MCH 31.8, MCHC 32.4, RDW Std Deviation 46.5 H, RDW Coeff of Shaq 13.1, Plt Count 193, MPV 9.6, Immature Gran % (Auto) 0.600, Neut % (Auto) 67.7, Lymph % (Auto) 22.1, [place] % (Auto) 6.5, Eos % (Auto) 2.7, Baso % (Auto) 0.4, Absolute Neuts (auto) 3.2, Absolute Lymphs (auto) 1.05, Nucleated RBC % 0 02/05/20 10:50: PT 12.7, INR 1.0, APTT 25.4 02/05/20 10:50: Sodium 144, Potassium 4.0, Chloride 107, Carbon Dioxide 29.0, Anion Gap 8, BUN 14, Creatinine 1.03 H, Estim Creat Clear Calc 34.83, Est GFR (MDRD) Af Amer 66, Est GFR (MDRD) Non-Af 55 L, BUN/Creatinine Ratio 13.6, Glucose 167 H, Calcium 8.9, Troponin I < 0.015 Current Medications Iopamidol (Contrast Allergy Safety Check) 0 ml IV X1 FABRICE Labetalol HCl (Labetalol (Prefilled) 20 Mg/4 Ml) 20 mg IV X1 PRN PRN Reason: Blood Pressure Assessment/Plan All Active Problems (This Medical Record has been edited. Action required.) Paresthesias (Acute) Left arm weakness (Acute) Hypertensive urgency (Acute) 1. Acute TIA/CVA in a patient with multiple risk factors Admitting NIHSS score was 5, NIHSS score on the floor was 0 CT of the head and neck showed no large vessel occlusion Acute CVA, in a patient with multiple cardiovascular risk factors Not a TPA candidate; last known normal was 10:30am Continue to monitor on telemetry, MRI of the brain, 2D echo, lipid profile in am, HbA1c SOC consult after MRI brain 2. Hypertensive emergency, will continue to monitor to allow for permissive hypertension Amlodipine is on hold, will resume after permissive hypertensive is over 3. Type II DM, on metformin, Metformin on hold Will continue with blood glucose checks with insulin sliding scale 4. Hypothyroidism, continue on synthroid 5. DVT prophylaxis with heparin subcu Inpatient E&M: 14475 Init Hosp L3
--- NOTE | 2020-02-05 13:14 | ED.RN ---
NIH [address] Morrison consulted and agreed to discontinue NIH. pt will be admitted to floor as soon as a room becomes available. puneet leary, rn [id number]
--- NOTE | 2020-02-05 13:32 | ECHOD_ITS ---
Reason For Study: TIA/CVA Procedure This was a 2D Doppler, Color Flow transthoracic echocardiogram. The study was technically difficult. Exam performed portable in patient room. Left Ventricle Normal LV size. Left ventricular systolic function is normal. The estimated ejection fraction is 60 %. No regional wall motion abnormalities noted. Atria Normal left atrium. Normal right atrium. Patent foramen ovale. Mitral Valve Normal mitral valve. Mild (1+) eccentric mitral valve insufficiency. Tricuspid Valve Normal tricuspid valve. Mild (1+) tricuspid valve insufficiency. Pulmonary artery systolic pressure is 33 mmHg. Aortic Valve Trisinus/trileaflet aortic valve. Normal aortic valve. Mild (1+) aortic valve insufficiency. Pulmonic Valve Normal pulmonic valve. Great Vessels Normal aortic root. The pulmonary artery is normal size. Normal inferior vena cava. Pericardium/Pleural No pericardial effusion. Medication Performed a rapid injection of agitated mix of 9 cc saline and 1cc air to assess for atrial septal defect. MMode/2D Measurements & Calculations LVIDd: 3.8 cm IVSd: 0.88 cm Ao root diam: 3.5 cm LVIDs: 2.7 cm LVPWd: 0.97 cm RVDd: 2.6 cm FS: 27.8 % LAV(MOD-bp): 35.6 ml LVAd ap4: 25.2 cm2 SV(MOD-sp4): 37.1 ml LAV(MOD-bp) Indexed: 21.5 ml/m2 EDV(MOD-sp4): 66.5 ml LAV(MOD-sp2): 41.1 ml EDV(sp4-el): 71.8 ml LAV(MOD-sp4): 26.8 ml LVAs ap4: 15.1 cm2 ESV(MOD-sp4): 29.4 ml ESV(sp4-el): 30.3 ml EF(MOD-sp4): 55.8 % EF(sp4-el): 57.8 % SV(sp4-el): 41.4 ml LA A4 area: 12.4 cm2 LA dimension(2D): 3.5 cm RA A4 area: 10.7 cm2 Time Measurements MV dec time: 0.20 sec Doppler Measurements & Calculations MV E max christiano: 72.2 cm/sec Lat Peak E' Christiano: 5.5 cm/sec Med Peak E' Christiano: 4.2 cm/sec MV A max christiano: 120.5 cm/sec E/E' lat: 13.2 E/E' med: 17.2 MV E/A: 0.60 Ao V2 max: 140.2 cm/sec AI max christiano: 349.0 cm/sec LV V1 max: 94.2 cm/sec Ao max P.9 mmHg AI max P.8 mmHg LV V1 max P.6 mmHg AI dec slope: 271.2 cm/sec2 AI P1/2t: 376.9 msec TR max christiano: 273.3 cm/sec TR max P.9 mmHg Interpretation Summary Mild (1+) aortic valve insufficiency. Normal LV size. Left ventricular systolic function is normal. The estimated ejection fraction is 60 %. Mild (1+) tricuspid valve insufficiency. Pulmonary artery systolic pressure is 33 mmHg. Patent foramen ovale. Ordering Physician: Gilda Haynes Referring Physician: GRZEGORZ JOLLEY Performed By: Sheila Whitten, RDCS, RVT
[2020-02-05 14:38] LABS: Thyroid Stim Hormone (TSH) 0.83 uIU/mL (0.358-3.74)
[2020-02-05 17:20] LABS: Bedside Glucose 116 mg/dL (70-110)
[2020-02-05 17:56] LABS: Hemoglobin A1c 6.7 % (3.8-5.6)
[2020-02-05] MEDS: Famotidine 20 MG Tablet PO (22:00)
[2020-02-05] MEDS: Atorvastatin Calcium 40 MG Tablet PO (22:00)
[2020-02-05] MEDS: Heparin Injection (Vial) 5,000 UNIT/ML VIAL 5000 UNIT SC (22:00)
[2020-02-05 22:35] LABS: Bedside Glucose 117 mg/dL (70-110)
[2020-02-06] VITALS (16 sets, daily range): BP systolic 119–159; BP diastolic 47–77; PULSE 69–93; RESP 14–16; TEMP 36.8–37; O2SAT 92–98; BMI 27.6
[2020-02-06 05:23] LABS: Absolute Lymphocyte Count 1.59 X10^3/uL (0.83-4.51); Absolute Neutrophil Count 2.7 X10^3/uL (2.0-7.7); Basophil# 0.02 X10^3/uL; Basophil% 0.4 % (0-1); Eosinophil# 0.14 X10^3/uL; Eosinophils% 2.8 % (0-5); Hematocrit 35.8 % (37-47); Hemoglobin 11.4 g/dL (12.0-15.0); Lymphocyte # 1.59 X10^3/ul (4.0); Lymphocyte % 32.3 % (19-41); Mean Corp Hgb Conc 31.8 g/dL (32-36); Mean Corpuscular Hgb 30.4 pg (27.0-32.0); Mean Corpuscular Volume 95.5 fL (81-99); Mean Platelet Vol. 9.3 fl (6.2-12.0); Monocyte# 0.43 X10^3/uL; Monocyte% 8.7 % (0-10); NRBC Flagged by Analyzer 0 % (0-5); Neutrophil # 2.72 X10^3/uL (2.7-7.7); Neutrophil % 55.4 % (47-70); Platelet Count 201 K/mm3 (150-450); RBC Distribution Width CV 12.9 % (11.6-14.6); RBC Distribution Width SD 45.1 fl (35.1-43.9); Red Blood Count 3.75 M/mm3 (4.2-5.4); White Blood Count 4.9 K/mm3 (4.4-11.0)
[2020-02-06 06:01] LABS: AST(SGOT) 13 U/L (15-37); Alanine Aminotransfer ALT/SGPT 20 U/L (13-56); Albumin, Serum 3.3 g/dL (3.2-5.0); Alkaline Phosphatase 71 U/L (45-117); Anion Gap 6 (5-15); BUN 15 mg/dL (7-18); Calcium,Total 9.1 mg/dL (8.5-10.1); Chloride 109 mmol/L (98-107); Cholesterol 170 mg/dL (200); EST Glomerular Filtration Rate 56 mL/min (>60); Est Glom Filt Rate - Afr Amer 68 mL/min (>60); Estimated Creatinine Clearance 32.73 ml/min; Globulin 3.4 g/dL (2.2-4.2); Glucose 101 mg/dL (74-106); High Density Lipoprotein 67 mg/dL; Potassium 3.9 mmol/L (3.5-5.1); Protein, Total 6.7 g/dL (6.4-8.2); Sodium Level 142 mmol/L (136-145); Triglycerides 167 mg/dL; Very Low Density Lipoprotein 33 mg/dL (5-40)
[2020-02-06] MEDS: Levothyroxine 88 MCG Tablet PO (06:33)
[2020-02-06 07:06] LABS: Bedside Glucose 108 mg/dL (70-110)
[2020-02-06 07:15] LABS: Bedside Glucose 150 mg/dL (70-110)
[2020-02-06] MEDS: LORazepam 1 MG Tablet 2 MG PO (08:02)
[2020-02-06] MEDS: Aspirin 81 MG TAB.CHEW PO (08:02)
--- NOTE | 2020-02-06 08:51 | PN_ITS ---
Patient Problems: Active and Suspected Problems (This Medical Record has been edited. Action required.) Paresthesias (Acute) Left arm weakness (Acute) Hypertensive urgency (Acute) Reason for Visit: Left arm and periorbital numbness Subjective: Patient is an 84-year-old lady who presented with left left and periorbital numbness. Objective: GENERAL: cooperative HEENT: Atraumatic; EYES; Anicteric, Normal Conjunctiva NECK; supple, normal thyroid, RESPIRATORY: Diminished to auscultation CARDIOVASCULAR: Regular S1 S2, GI: soft, normoactive bowel sounds, : No Renal angle tenderness; EXTREMITIES: No edema, no clubbing, MUSCULOSKELETAL: no muscle waisting NEURO: Awake; no lateralizing signs. SKIN: No Rash PSYCH; Flat affect Vitals/I&O's: Vital Signs Temp Pulse Resp BP Pulse Ox 98.2 F 93 14 135/64 H 96 02/06/20 07:30 02/06/20 08:12 02/06/20 08:12 02/06/20 07:30 02/06/20 07:30 Oxygen Flow Rate (L/min) 2 Oxygen Delivery Method Room Air Weight: 66.3 kg Body Mass Index (BMI) 27.6 Finger Stick Blood Glucose 150 Intake and Output for Last 24 Hours 02/05/20 02/05/20 02/06/20 00:59 23:59 23:59 Intake Total 240 / 240 Balance 240 / 240 Laboratory Results 02/05/20 10:36: POC Glucose 150 H 02/05/20 10:50: WBC 4.8, RBC 3.81 L, Hgb 12.1, Hct 37.4, MCV 98.2, MCH 31.8, MCHC 32.4, RDW Std Deviation 46.5 H, RDW Coeff of Shaq 13.1, Plt Count 193, MPV 9.6, Immature Gran % (Auto) 0.600, Neut % (Auto) 67.7, Lymph % (Auto) 22.1, [place] % (Auto) 6.5, Eos % (Auto) 2.7, Baso % (Auto) 0.4, Absolute Neuts (auto) 3.2, Absolute Lymphs (auto) 1.05, Nucleated RBC % 0 02/05/20 10:50: PT 12.7, INR 1.0, APTT 25.4 02/05/20 10:50: Sodium 144, Potassium 4.0, Chloride 107, Carbon Dioxide 29.0, Anion Gap 8, BUN 14, Creatinine 1.03 H, Estim Creat Clear Calc 34.83, Est GFR (MDRD) Af Amer 66, Est GFR (MDRD) Non-Af 55 L, BUN/Creatinine Ratio 13.6, Glucose 167 H, Calcium 8.9, Troponin I < 0.015 02/05/20 10:50: Hemoglobin A1c 6.7 H 02/05/20 14:00: Troponin I < 0.015, TSH 0.83 02/05/20 16:23: POC Glucose 116 H 02/05/20 21:57: POC Glucose 117 H 02/06/20 05:10: WBC 4.9, RBC 3.75 L, Hgb 11.4 L, Hct 35.8 L, MCV 95.5, MCH 30.4, MCHC 31.8 L, RDW Std Deviation 45.1 H, RDW Coeff of Shaq 12.9, Plt Count 201, MPV 9.3, Immature Gran % (Auto) 0.400, Neut % (Auto) 55.4, Lymph % (Auto) 32.3, [place] % (Auto) 8.7, Eos % (Auto) 2.8, Baso % (Auto) 0.4, Absolute Neuts (auto) 2.7, Absolute Lymphs (auto) 1.59, Nucleated RBC % 0 02/06/20 05:10: Sodium 142, Potassium 3.9, Chloride 109 H, Carbon Dioxide 27.0, Anion Gap 6, BUN 15, Creatinine 1.00, Estim Creat Clear Calc 32.73, Est GFR (MDRD) Af Amer 68, Est GFR (MDRD) Non-Af 56 L, BUN/Creatinine Ratio 15.0, Glucose 101, Calcium 9.1, Total Bilirubin 0.30, AST 13 L, ALT 20, Alkaline Phosphatase 71, Total Protein 6.7, Albumin 3.3, Globulin 3.4, Albumin/Globulin Ratio 1.0, Triglycerides 167, Cholesterol 170, LDL Cholesterol 70, VLDL Cholesterol 33, HDL Cholesterol 67 02/06/20 06:32: POC Glucose 108 Current Medications Acetaminophen (Acetaminophen 325 Mg Tablet) 650 mg PO Q4H PRN PRN PRN Reason: Pain 1-10/Headache/Temp>99.6F Acetaminophen (Acetaminophen 650 Mg Suppository) 650 mg RECTAL Q4H PRN PRN PRN Reason: Pain 1-10/Headache/Temp>99.6F Albuterol Sulfate (Albuterol 2.5 Mg/3 Ml Vial.Neb.) 2.5 mg INHALATION Q2H PRN PRN PRN Reason: SOB/Wheezing Aspirin (Aspirin 81 Mg Tab.Chew) 81 mg PO DAILY@0800 [facility] Last Admin: 02/06/20 08:02 Dose: 81 mg Documented by: Atorvastatin Calcium (Atorvastatin Calcium 40 Mg Tablet) 40 mg PO QHS [facility] Last Admin: 02/05/20 22:00 Dose: 40 mg Documented by: Dextrose (Dextrose 50%-Water 25 Gm/50 Ml Disp.Syrin) 0 gm IV X1 PRN; Protocol PRN Reason: Hypoglycemia Famotidine (Famotidine 20 Mg Tablet) 20 mg PO BID [facility] Last Admin: 02/05/20 22:00 Dose: 20 mg Documented by: Gabapentin (Gabapentin 300 Mg Capsule) 300 mg PO DAILY [facility] Glucagon (Glucagon 1 Mg/Ml Syringe) 1 mg IM .X1 PRN PRN Reason: Hypoglycemia Heparin Sodium (Porcine) (Heparin Injection (Vial) 5,000 Unit/Ml Vial) 5,000 unit SC Q12 [facility] Last Admin: 02/05/20 22:00 Dose: 5,000 unit Documented by: Insulin Human Lispro (Insulin Lispro 100 Unit/Ml Insuln.Pen) 0 unit SC [facility]; Protocol Last Admin: 02/06/20 07:07 Dose: Not Given Documented by: Iopamidol (Contrast Allergy Safety Check) 0 ml IV X1 [facility] Last Admin: 02/06/20 08:03 Dose: Not Given Documented by: Labetalol HCl (Labetalol (Prefilled) 20 Mg/4 Ml) 20 mg IV X1 PRN PRN Reason: Blood Pressure Levothyroxine Sodium (Levothyroxine 88 Mcg Tablet) 88 mcg PO DAILY@0600 [facility] Last Admin: 02/06/20 06:33 Dose: 88 mcg Documented by: Lorazepam (Lorazepam 1 Mg Tablet) 2 mg PO X1 [facility] Stop: 02/06/20 23:59 Last Admin: 02/06/20 08:02 Dose: 2 mg Documented by: Ondansetron HCl (Ondansetron 4 Mg/2 Ml Vial) 4 mg IV Q8H PRN PRN PRN Reason: NAUSEA/VOMITING Sodium Chloride (0.9% Saline Lock 10 Ml Syringe) 10 - 40 ml IV UD PRN PRN Reason: SALINE FLUSH STROKE Vital Signs/Narrative: Vital Signs Temp Pulse Resp BP Pulse Ox 02/06/20 08:12 93 14 02/06/20 07:30 98.2 F 73 16 135/64 H 96 02/06/20 06:39 76 Medical Necessity - Tobacco Use Smoking Status: Never smoker Tobacco Use: Non-smoker Assessment/Plan All Active Problems (This Medical Record has been edited. Action required.) Paresthesias (Acute) Left arm weakness (Acute) Hypertensive urgency (Acute) Patient is an 84-year-old lady who presented with left arm and periorbital numbness. 1. Left arm numbness ?With high suspicion for CVA. Admitted to a monitored bed. Added every 4 neurochecks. Patient was deemed not a candidate for TPA. As part of patient management MRI 2D echo lipid profile ordered. Was placed on aspirin and statin therapy 2. Acute hypertensive emergency ?In view of patient suspicion of acute CVA aggressive treatment of her elevated blood pressure was not pursued 3. Hypothyroidism - Patient is on levothyroxine home dose continued 4. Diabetes mellitus type II - Controlled -patient's oral hypoglycemics held. -Placed on long acting insulin, Accu-Cheks a.c. and at bedtime and covered with sliding scale insulin 5. Dyslipidemia -Patient is on statin therapy, continued at home dose 6. DVT prophylaxis ?SC heparin Clinical Impression(s) from Imaging Studies Brain CT 02/05/20 10:40 IMPRESSION: Chronic involutional changes of the brain. N.B. : The above information has been verbally conveyed by Refugio Lau MD to Dr. Manny Morrison;[id number], on 02/05/2020 11:01:35 (ET). Electronically Signed: Refugio Lau MD at 11:02 EST , Service support , ADDENDUM: 02/05/20 1109 IMPRESSION: Chronic involutional changes of the brain. N.B. : The above information has been verbally conveyed by Refugio Lau MD to Dr. Manny Morrison;[id number], on 02/05/2020 11:01:35 (ET). Electronically Signed: Refugio Lau MD at 11:02 EST , Service support , Chest X-Ray 02/05/20 10:40 IMPRESSION: Stable, nonacute portable x-ray examination of the chest. Electronically Signed: Jose Diaz MD (Brooks) at 12:34 EST , Service support , Head/Neck CTA 02/05/20 11:02 IMPRESSION: 1. No large vessel occlusion or intracranial aneurysm. 2. Bilateral carotid bulb and proximal ICA atherosclerosis without hemodynamically significant stenosis. No arterial dissection. N.B. : The above information has been verbally conveyed by Jose Diaz MD (Brooks) to Manny Morrison MD, on 02/05/2020 11:40:00 (ET). Electronically Signed: Jose Diaz MD (Brooks) at 11:45 EST , Service support , ADDENDUM: 02/05/20 1152 IMPRESSION: 1. No large vessel occlusion or intracranial aneurysm. 2. Bilateral carotid bulb and proximal ICA atherosclerosis without hemodynamically significant stenosis. No arterial dissection. N.B. : The above information has been verbally conveyed by Jose Diaz MD (Brooks) to Manny Morrison MD, on 02/05/2020 11:40:00 (ET). Electronically Signed: Jose Diaz MD (Brooks) at 11:45 EST , Service support , Inpatient E&M: 07486 Subs Hosp L2
--- NOTE | 2020-02-06 09:00 | MRI_ITS ---
We are attempting to reach an attending provider to discuss findings. An addendum with communication details will be sent when the communication is complete. STUDY: MRI BRAIN WITHOUT CONTRAST REASON FOR EXAM: Female, 84 years old. neuro deficit, left arm weakness, numbness, numbness around jim TECHNIQUE: Standardized multiplanar fat and water weighted pulse sequences were obtained. COMPARISON: CT 02/05/2020 FINDINGS: There is moderate cerebral atrophy with widening of the extra-axial spaces and ventricular dilatation. There are a limited number of small white matter hyperintensities, distributed throughout the deep white matter tracts of the cerebral hemispheres, consistent with mild chronic white matter ischemic changes. 1 cm oval hyperintensity of the left thalamus demonstrates restricted diffusion consistent with an acute/subacute infarct. Normal T2* images of the brain without demonstrated susceptibility artifact. There is no demonstrated hemosiderin stain. Normal bilateral basal ganglia. Normal thalami. There is no extra-axial fluid accumulation. Normal flow voids within the major intracranial circulation suggesting patency by spin echo criteria. There is enlargement of the sella turcica with increased CSF within the sella and flattening of the pituitary gland consistent with an empty sellar syndrome. Normal infundibular stalk, hypothalamus, and optic chiasm. Normal tectal plate and pineal gland. Normal midbrain, leobardo and medulla. Normal cerebellum. Normal basal cisterns. Normal bilateral temporal bones. Normal bilateral internal auditory canals. There is an ocular lens implant the left globe. Normal right globe. The intraorbital contents otherwise are normal. Normal visualized paranasal sinuses. Normal calvarium and skull base. Normal visualized soft tissue structures. Normal visualized upper cervical spine. MRI/Brain without Contrast IMPRESSION: Involutional changes of the brain, as described above. 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 Electronically Signed: Kishore Kumar MD at 10:35 EST Tel , Service support ,
--- NOTE | 2020-02-06 10:08 | NURSING ---
PT TOLERATED MRI WELL. DENIED ANY NEEDS THROUGHOUT THE SCAN.
[2020-02-06] MEDS: Gabapentin 300 MG Capsule PO (10:30)
[2020-02-06] MEDS: Famotidine 20 MG Tablet PO ×2 (10:30→23:42)
[2020-02-06] MEDS: Heparin Injection (Vial) 5,000 UNIT/ML VIAL 5000 UNIT SC ×2 (10:31→23:42)
--- NOTE | 2020-02-06 10:48 | TELEMED_ITS ---
[facility] Tele[facility] has confirmed receipt of a request for visit. This document confirms receipt of the order initiating the consult. To find the results of the consultation, please view the patient's reports for the scanned Telemed Consult.
[2020-02-06 11:26] LABS: Bedside Glucose 135 mg/dL (70-110)
--- NOTE | 2020-02-06 11:44 | NURSING ---
This RN attempted to call the pt's son and daughter via phone. No answer. This RN left voicemail for pt's daughter with call back number. The son did not have voicemail box set up.
--- NOTE | 2020-02-06 12:21 | CASEMGMT ---
Social Work Patient positive for stroke per MRI. PHQ-9 assessment completed. Patient with score of 05/02. Patient denies any mental health concerns. Patient with positive and engaged affect. Rocio Her MSW, DOUGLAS
--- NOTE | 2020-02-06 13:10 | DCINST_ITS ---
- Discharge Diagnoses Current Active Problems: Current Active and Chronic Problems (This Medical Record has been edited. Action required.) Paresthesias (Acute) Left arm weakness (Acute) Hypertensive urgency (Acute) Hypertension (Chronic) DM type 2 (diabetes mellitus, type 2) (Chronic) Hypothyroidism (Chronic) You will use the following diet at home:: Calorie/Carbohydrate Controlled (specify 1200, 1400, etc) - 1800 Your food should be the consistency of: Regular Discharge Activity: No Restrictions Allergies/Adverse Reactions: Allergies Penicillins Allergy (Verified 02/05/20 11:01) Pain in joints Sulfa (Sulfonamide Antibiotics) Allergy (Verified 02/05/20 11:01) Hives Medications to take at Discharge Amlodipine [Norvasc] 5 mg PO DAILY 02/05/20 Aspirin [Aspirin, Baby] 81 mg PO DAILY@0800 02/05/20 Atorvastatin Calcium 20 mg PO QHS 02/05/20 Gabapentin 300 mg PO QHS 02/05/20 Levothyroxine Sodium 88 mcg PO DAILY 02/05/20 Meloxicam [Mobic] 15 mg PO DAILY 02/05/20 Metformin HCl [Glucophage] 500 mg PO DAILY 02/05/20 Clopidogrel Bisulfate [Plavix] 75 mg PO DAILY #90 tab 02/06/20 The following prescriptions were given: Clopidogrel Bisulfate [Plavix] 75 mg PO DAILY #90 tab Transmission Status: Received by [facility]/pharmacy #[id number] Primary Care Physician: Ap Morelos Chi, MD [Primary Care Provider] - Please follow up with your Primary Care Physician in: in 1 week Test Results: Test results from this visit will be discussed in further detail at your follow- up appointment, if applicable. Proposed Discharge Date: 02/06/20
--- NOTE | 2020-02-06 13:13 | DS.PCM_ITS ---
Discharge Date and Diagnosis - Problem List Patient Problems: Active and Suspected Problems (This Medical Record has been edited. Action required.) Paresthesias (Acute) Left arm weakness (Acute) Hypertensive urgency (Acute) Date of Admission: 02/05/20 Date of Discharge: 02/06/20 - Primary Discharge Diagnosis Acute Problems: Active Problems (This Medical Record has been edited. Action required.) Paresthesias (Acute) Left arm weakness (Acute) Hypertensive urgency (Acute) - Secondary Discharge Diagnosis Chronic Problems: Chronic Problems (This Medical Record has been edited. Action required.) Hypertension (Chronic) DM type 2 (diabetes mellitus, type 2) (Chronic) Hypothyroidism (Chronic) Hospital Course and Treatment Imaging Results: Clinical Impression(s) from Imaging Studies Brain CT 02/05/20 10:40 IMPRESSION: Chronic involutional changes of the brain. N.B. : The above information has been verbally conveyed by Refugio Lau MD to Dr. Manny Morrison;[id number], MD, on 02/05/2020 11:01:35 (ET). Electronically Signed: Refugio Lau MD at 11:02 EST , Service support , ADDENDUM: 02/05/20 1109 IMPRESSION: Chronic involutional changes of the brain. N.B. : The above information has been verbally conveyed by Refugio Lau MD to Dr. Manny Morrison;[id number], MD, on 02/05/2020 11:01:35 (ET). Electronically Signed: Refugio Lau MD at 11:02 EST , Service support , Chest X-Ray 02/05/20 10:40 IMPRESSION: Stable, nonacute portable x-ray examination of the chest. Electronically Signed: Jose Diaz MD (Brooks) at 12:34 EST , Service support , Head/Neck CTA 02/05/20 11:02 IMPRESSION: 1. No large vessel occlusion or intracranial aneurysm. 2. Bilateral carotid bulb and proximal ICA atherosclerosis without hemodynamically significant stenosis. No arterial dissection. N.B. : The above information has been verbally conveyed by Jose iDaz MD (Brooks) to Manny Morrison MD, on 02/05/2020 11:40:00 (ET). Electronically Signed: Jose Diaz MD (Brooks) at 11:45 EST , Service support , ADDENDUM: 02/05/20 1152 IMPRESSION: 1. No large vessel occlusion or intracranial aneurysm. 2. Bilateral carotid bulb and proximal ICA atherosclerosis without hemodynamically significant stenosis. No arterial dissection. N.B. : The above information has been verbally conveyed by Jose Diaz MD (Brooks) to Manny Morrison MD, on 02/05/2020 11:40:00 (ET). Electronically Signed: Jose Diaz MD (Brooks) at 11:45 EST , Service support , Brain MRI 02/06/20 09:00 IMPRESSION: Involutional changes of the brain, as described above. 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 Electronically Signed: Kishore Kumar MD at 10:35 EST Tel , Service support , ADDENDUM: 02/06/20 1112 IMPRESSION: Involutional changes of the brain, as described above. 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 N.B. : MD Judit, confirmed on 02/06/2020 11:05:49 (ET) that the referring physician received the results and does not require a verbal communication. Electronically Signed: Kishore Kumar MD at 10:35 EST Tel , Service support , Summary of Care Provided: Patient is an 84-year-old lady who presented with left arm and periorbital numbness. 1. 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 Patient presented with left arm numbness. MRI demonstrated above. Patient was seen in consultation by neurology. Neurology recommended addition of Plavix to patient therapy. 2. Acute hypertensive emergency ?In view of patient suspicion of acute CVA aggressive treatment of her elevated blood pressure was not pursued 3. Hypothyroidism - Patient is on levothyroxine home dose continued 4. Diabetes mellitus type II - Controlled -patient's oral hypoglycemics held. -Placed on long acting insulin, Accu-Cheks a.c. and at bedtime and covered with sliding scale insulin 5. Dyslipidemia -Patient is on statin therapy, continued at home dose 6. DVT prophylaxis ?SC heparin Patient Problems: Active and Suspected Problems (This Medical Record has been edited. Action required.) Paresthesias (Acute) Left arm weakness (Acute) Hypertensive urgency (Acute) Objective: GENERAL: cooperative HEENT: Atraumatic; EYES; Anicteric, Normal Conjunctiva NECK; supple, normal thyroid, RESPIRATORY: Diminished to auscultation CARDIOVASCULAR: Regular S1 S2, GI: soft, normoactive bowel sounds, : No Renal angle tenderness; EXTREMITIES: No edema, no clubbing, MUSCULOSKELETAL: no muscle waisting NEURO: Awake; no lateralizing signs. SKIN: No Rash PSYCH; Flat affect - Physical Exam Vitals/I&O's: Vital Signs Temp Pulse Resp BP Pulse Ox 98.4 F 72 16 141/47 H 96 02/06/20 11:05 02/06/20 11:05 02/06/20 11:05 02/06/20 11:05 02/06/20 11:05 Oxygen Flow Rate (L/min) 2 Oxygen Delivery Method Room Air Weight: 66.3 kg Body Mass Index (BMI) 27.6 Finger Stick Blood Glucose 150 Intake and Output for Last 24 Hours 02/05/20 02/05/20 02/06/20 00:59 23:59 23:59 Intake Total 640 / 640 Balance 640 / 640 Laboratory Results 02/05/20 10:36: POC Glucose 150 H 02/05/20 10:50: Hemoglobin A1c 6.7 H 02/05/20 14:00: Troponin I < 0.015, TSH 0.83 02/05/20 16:23: POC Glucose 116 H 02/05/20 21:57: POC Glucose 117 H 02/06/20 05:10: WBC 4.9, RBC 3.75 L, Hgb 11.4 L, Hct 35.8 L, MCV 95.5, MCH 30.4, MCHC 31.8 L, RDW Std Deviation 45.1 H, RDW Coeff of Shaq 12.9, Plt Count 201, MPV 9.3, Immature Gran % (Auto) 0.400, Neut % (Auto) 55.4, Lymph % (Auto) 32.3, Rush % (Auto) 8.7, Eos % (Auto) 2.8, Baso % (Auto) 0.4, Absolute Neuts (auto) 2.7, Absolute Lymphs (auto) 1.59, Nucleated RBC % 0 02/06/20 05:10: Sodium 142, Potassium 3.9, Chloride 109 H, Carbon Dioxide 27.0, Anion Gap 6, BUN 15, Creatinine 1.00, Estim Creat Clear Calc 32.73, Est GFR (MDRD) Af Amer 68, Est GFR (MDRD) Non-Af 56 L, BUN/Creatinine Ratio 15.0, Glucose 101, Calcium 9.1, Total Bilirubin 0.30, AST 13 L, ALT 20, Alkaline Phosphatase 71, Total Protein 6.7, Albumin 3.3, Globulin 3.4, Albumin/Globulin Ratio 1.0, Triglycerides 167, Cholesterol 170, LDL Cholesterol 70, VLDL Cholesterol 33, HDL Cholesterol 67 02/06/20 06:32: POC Glucose 108 02/06/20 10:59: POC Glucose 135 H Current Medications Acetaminophen (Acetaminophen 325 Mg Tablet) 650 mg PO Q4H PRN PRN PRN Reason: Pain 1-10/Headache/Temp>99.6F Acetaminophen (Acetaminophen 650 Mg Suppository) 650 mg RECTAL Q4H PRN PRN PRN Reason: Pain 1-10/Headache/Temp>99.6F Albuterol Sulfate (Albuterol 2.5 Mg/3 Ml Vial.Neb.) 2.5 mg INHALATION Q2H PRN PRN PRN Reason: SOB/Wheezing Aspirin (Aspirin 81 Mg Tab.Chew) 81 mg PO DAILY@0800 [facility] Last Admin: 02/06/20 08:02 Dose: 81 mg Documented by: Atorvastatin Calcium (Atorvastatin Calcium 40 Mg Tablet) 40 mg PO QHS [facility] Last Admin: 02/05/20 22:00 Dose: 40 mg Documented by: Clopidogrel Bisulfate (Clopidogrel Bisulfate 75 Mg Tablet) 75 mg PO DAILY [facility] Dextrose (Dextrose 50%-Water 25 Gm/50 Ml Disp.Syrin) 0 gm IV X1 PRN; Protocol PRN Reason: Hypoglycemia Famotidine (Famotidine 20 Mg Tablet) 20 mg PO BID [facility] Last Admin: 02/06/20 10:30 Dose: 20 mg Documented by: Gabapentin (Gabapentin 300 Mg Capsule) 300 mg PO DAILY [facility] Last Admin: 02/06/20 10:30 Dose: 300 mg Documented by: Glucagon (Glucagon 1 Mg/Ml Syringe) 1 mg IM .X1 PRN PRN Reason: Hypoglycemia Heparin Sodium (Porcine) (Heparin Injection (Vial) 5,000 Unit/Ml Vial) 5,000 unit SC Q12 [facility] Last Admin: 02/06/20 10:31 Dose: 5,000 unit Documented by: Insulin Human Lispro (Insulin Lispro 100 Unit/Ml Insuln.Pen) 0 unit SC ACHS [facility]; Protocol Last Admin: 02/06/20 11:01 Dose: Not Given Documented by: Labetalol HCl (Labetalol (Prefilled) 20 Mg/4 Ml) 20 mg IV X1 PRN PRN Reason: Blood Pressure Levothyroxine Sodium (Levothyroxine 88 Mcg Tablet) 88 mcg PO DAILY@0600 [facility] Last Admin: 02/06/20 06:33 Dose: 88 mcg Documented by: Lorazepam (Lorazepam 1 Mg Tablet) 2 mg PO X1 [facility] Stop: 02/06/20 23:59 Last Admin: 02/06/20 08:02 Dose: 2 mg Documented by: Ondansetron HCl (Ondansetron 4 Mg/2 Ml Vial) 4 mg IV Q8H PRN PRN PRN Reason: NAUSEA/VOMITING Sodium Chloride (0.9% Saline Lock 10 Ml Syringe) 10 - 40 ml IV UD PRN PRN Reason: SALINE FLUSH Discharge Diet: 1800 Calorie Control Diet Discharge Activity: No Restrictions Home Medications: Medications to take at Discharge Amlodipine [Norvasc] 5 mg PO DAILY 02/05/20 Aspirin [Aspirin, Baby] 81 mg PO DAILY@0800 02/05/20 Atorvastatin Calcium 20 mg PO QHS 02/05/20 Gabapentin 300 mg PO QHS 02/05/20 Levothyroxine Sodium 88 mcg PO DAILY 02/05/20 Meloxicam [Mobic] 15 mg PO DAILY 02/05/20 Metformin HCl [Glucophage] 500 mg PO DAILY 02/05/20 Clopidogrel Bisulfate [Plavix] 75 mg PO DAILY #90 tab 02/06/20 Following Prescriptions Were Given to Patient: Clopidogrel Bisulfate [Plavix] 75 mg PO DAILY #90 tab Transmission Status: Received by [facility][id number] Primary Care Physician: Ap Morelos Chi, MD [Primary Care Provider] - Please follow up with your Primary Care Physician in: in 1 week Disposition: Home Minutes spent on discharge:: 35 Patient Condition:: Stable Medical Necessity - Tobacco Use Smoking Status: Never smoker Tobacco Use: Non-smoker Meaningful Use Info Meaningful Use Diagnoses (Choose all that apply): Ischemic CVA - CVA Therapy Assessed for PT,OT and/or ST?: Yes - Ischemic Stroke Antithrombotic order at d/c?: Yes Dx of Atrial fib/flutter?: No Statins at discharge?: Yes Primary Dx Acute Ischemic CVA?: Yes IV tPA ordered during stay?: No Reason IV t-PA not ordered: Treatment not Indicated Inpatient E&M: 90440 Disch Hosp
--- NOTE | 2020-02-06 13:50 | CASEMGMT ---
MATTY GOULD assessment: Face to Face with patient for initial transition planning/care coordination assessment. RN CM introduced self and role at [facility], pt voices understanding and consents to assessment at this time. Pt is sitting up in bed in no distress at this time. Pt is A/Ox4 at this time but is sleepy and slow to answer questions at times but pt had ativan iv prior to MRI. Care providers, pharmacy, and demographics verified at this time. Presentation: Numbness/tingling to left hand/face Admitting dx: CVA PCP: J[facility]ro Specialists: Pt states no current specialists. [facility]erred [facility] Insurance: MCR A/B, MMO Prescription Benefit: MMO Living Will/HPOA: Pt states does not have LW/HPOA and declines AD info at this time. LNOK: Marc Naranjo, son; Rhea Giles, daughter Living Arrangements: Pt states lives with son in ranch style home and states no concerns at home at this time. Pt states is normally independent with ADL's. Transportation: Pt states friend drives and states no transportation concerns at this time. DME/HHC: Pt states no current DME or need for any DME at this time. Pt states no hx of HHC or SNF in the past. Pt states no concerns with going home at time of discharge. Pt is retired. Pt states does not smoke cigarettes or drink ETOH. Pt states no further concerns/needs at this time. Pt states ok for this RN CM to call son for further d/c planning. CM to follow for any further discharge planning/needs. Advised pt to ask for CM if any further questions/concerns/needs arise, voices understanding. Pt Goal: Home Plan: Home, pending PT/OT neal. SStmaximilian STARR CM
--- NOTE | 2020-02-06 14:58 | NURSING ---
This RN called and left a VM for the pt's daughter, Rhea informing her that the pt will not be dc'd today due to increased confusion-Dr. Spain notified.
--- NOTE | 2020-02-06 15:19 | PHA.DC.MC ---
Pharmacy Service has performed discharge medication reconciliation and counseling for this patient. 1. CLOPIDOGREL 75MG PO DAILY The patient's discharge medication list was reviewed for discrepancies and discrepancies were resolved. Patient's son called while I was in the room and asked for us to set up physical therapy at home. Information relayed to BRYANNA Orantes. Home Medications Amlodipine [Norvasc] 5 mg PO DAILY 02/05/20 Aspirin [Aspirin, Baby] 81 mg PO DAILY@0800 02/05/20 Atorvastatin Calcium 20 mg PO QHS 02/05/20 Gabapentin 300 mg PO QHS 02/05/20 Levothyroxine Sodium 88 mcg PO DAILY 02/05/20 Meloxicam [Mobic] 15 mg PO DAILY 02/05/20 Metformin HCl [Glucophage] 500 mg PO DAILY 02/05/20 Clopidogrel Bisulfate [Plavix] 75 mg PO DAILY #90 tab 02/06/20 The patient was counseled on the following discharge medications and changes in medications for homegoing were reviewed. The Reason for Use, instructions for use, and potential side effects were reviewed for all new medications. The patient's questions regarding all of their medications were answered. The patient was able to verbally demonstrate an understanding of their discharge medications.
--- NOTE | 2020-02-06 15:22 | CASEMGMT ---
Per pt, ok for this MATTY GOULD to call son to discuss discharge planning at this time. Per son, pt will have granddaughters staying with her for the next several days at least. Son is agreeable to further therapy but would like to discuss with pt at this time. Per pt/son, they would like [facility] set up and pt states would like [facility] at this time for therapy. Order placed for PT/OT and message left with Pari at [facility] with referral at this time. Call back from Pari and she states they can take pt at this time. Pt/son voice no further concerns with pt going home at discharge at this time. SStaten MATTY GOULD
--- NOTE | 2020-02-06 16:56 | CHAPLAIN ---
Type of Pastoral Visit _x__ Initial Visit ___ Follow-up Visit ___ On-call Visit ___ General Patient Visit ___ Spiritual Assessment ___ Family Conference ___ Bereavement ___ Rapid Response ___ Code Blue ___ Other (describe below) Pastoral Care Referral From _x__ Patient ___ Family ___ Nurse ___ Physician ___ Prescription Clerk ___ Internal Audit Manager ___ Other (describe below) Sacrament/Intervention _x__ Active listening ___ Anointing ___ Episcopalian ___ Bereavement ___ Communion ___ Sayda exploration ___ ___ Life review _x__ Prayer ___ Reconciliation ___ Sacrament of Sick _x__ Supportive presence ___ Wedding ___ Other (describe below) Pastoral Comments
[2020-02-06 17:16] LABS: Bedside Glucose 144 mg/dL (70-110)
[2020-02-06 23:05] LABS: Bedside Glucose 131 mg/dL (70-110)
[2020-02-06] MEDS: Atorvastatin Calcium 40 MG Tablet PO (23:42)
[2020-02-07] VITALS (9 sets, daily range): BP systolic 118–153; BP diastolic 51–79; PULSE 67–92; RESP 16–18; TEMP 36.9–37.4; O2SAT 93–95
[2020-02-07 05:16] LABS: Hematocrit 36.1 % (37-47); Hemoglobin 11.5 g/dL (12.0-15.0); Mean Corp Hgb Conc 31.9 g/dL (32-36); Mean Corpuscular Hgb 30.3 pg (27.0-32.0); Mean Corpuscular Volume 95.3 fL (81-99); Mean Platelet Vol. 9.2 fl (6.2-12.0); Platelet Count 204 K/mm3 (150-450); RBC Distribution Width CV 12.8 % (11.6-14.6); Red Blood Count 3.79 M/mm3 (4.2-5.4); White Blood Count 4.5 K/mm3 (4.4-11.0)
[2020-02-07 05:31] LABS: Anion Gap 8 (5-15); BUN 25 mg/dL (7-18); BUN/Creat Ratio 24.5 RATIO (10-20); Chloride 104 mmol/L (98-107); Creatinine, Serum 1.02 mg/dL (0.55-1.02); EST Glomerular Filtration Rate 55 mL/min (>60); Est Glom Filt Rate - Afr Amer 67 mL/min (>60); Estimated Creatinine Clearance 32.09 ml/min; Glucose 111 mg/dL (74-106); Potassium 3.8 mmol/L (3.5-5.1); Sodium Level 139 mmol/L (136-145)
[2020-02-07] MEDS: Levothyroxine 88 MCG Tablet PO (05:48)
[2020-02-07 07:05] LABS: Bedside Glucose 117 mg/dL (70-110)
--- NOTE | 2020-02-07 08:47 | VDLE_ITS ---
Reason For Study: Pain RIGHT LEFT GSV is normal. GSV is normal. CFV is compressible, spontaneous, phasic, CFV is compressible, spontaneous, phasic, competent and demonstrates normal competent, and demonstrates normal augmentation. augmentation. FV is compressible, spontaneous, phasic, FV is compressible, spontaneous, phasic, competent and demonstrates normal competent and demonstrates normal augmentation. augmentation. POP V is compressible, spontaneous, phasic, POP V is compressible, spontaneous, phasic, competent and demonstrates normal competent and demonstrates normal augmentation. augmentation. T/P Trunk is compressible. T/P Trunk is compressible. PTV is compressible. PTV is compressible. RT PerV is compressible. LT PerV is compressible. Procedure This is a venous duplex using B-mode, color flow and spectral Doppler. Exam performed in department. A preliminary report was called and/or faxed to [facility] OFFICE MANAGER. Interpretation Summary No evidence for acute deep venous thrombosis bilateral lower extremities with patent and compressible bilateral great saphenous veins. Ordering Physician: Jaswinder Reyes Referring Physician: Ap Morelos Chi Performed By: Rolanda Kim RVT
[2020-02-07] MEDS: Aspirin 81 MG TAB.CHEW PO (11:22)
[2020-02-07] MEDS: Heparin Injection (Vial) 5,000 UNIT/ML VIAL 5000 UNIT SC (11:22)
[2020-02-07] MEDS: Famotidine 20 MG Tablet PO (11:23)
[2020-02-07] MEDS: Clopidogrel Bisulfate 75 MG Tablet PO (11:23)
[2020-02-07] MEDS: Gabapentin 300 MG Capsule PO (11:23)
[2020-02-07] MEDS: 0.9% Saline Lock 10 ML Syringe IV (11:31)
[2020-02-07 11:32] LABS: Vitamin B12 298 pg/mL (211-911)
[2020-02-07 12:01] LABS: Bedside Glucose 139 mg/dL (70-110)
--- NOTE | 2020-02-07 13:39 | CASEMGMT ---
Call to Pari at [facility] to notify of pt discharge today, voices understanding. Per therapy, pt does not need any equipment for home at this time. Narciso STARR CM
--- NOTE | 2020-02-07 13:58 | DCINST_ITS ---
- Discharge Diagnoses Current Active Problems: Current Active and Chronic Problems (This Medical Record has been edited. Action required.) Paresthesias (Acute) Left arm weakness (Acute) Hypertensive urgency (Acute) Hypertension (Chronic) DM type 2 (diabetes mellitus, type 2) (Chronic) Hypothyroidism (Chronic) You will use the following diet at home:: Cardiac Your food should be the consistency of: Regular Your liquids should be the consistency of: Regular/Thin Discharge Activity: May Not Drive Additional Instructions: No driving until cleared by PCP. Allergies/Adverse Reactions: Allergies Penicillins Allergy (Verified 02/05/20 11:01) Pain in joints Sulfa (Sulfonamide Antibiotics) Allergy (Verified 02/05/20 11:01) Hives Medications to take at Discharge Amlodipine [Norvasc] 5 mg PO DAILY 02/05/20 Aspirin [Aspirin, Baby] 81 mg PO DAILY@0800 02/05/20 Atorvastatin Calcium 20 mg PO QHS 02/05/20 Gabapentin 300 mg PO QHS 02/05/20 Levothyroxine Sodium 88 mcg PO DAILY 02/05/20 Meloxicam [Mobic] 15 mg PO DAILY 02/05/20 Metformin HCl [Glucophage] 500 mg PO DAILY 02/05/20 Clopidogrel Bisulfate [Plavix] 75 mg PO DAILY #90 tab 02/06/20 The following prescriptions were given: Clopidogrel Bisulfate [Plavix] 75 mg PO DAILY #90 tab Transmission Status: Received by [facility]/pharmacy #[id number] Orders to be completed after discharge: Cardiac Holter Monitor, Set-Up [[facility]] Time Frame: 02/07/20, Location: None Selected Primary Care Physician: Ap Morelos Chi, MD [Primary Care Provider] - Please follow up with your Primary Care Physician in: in 1 week Test Results: Test results from this visit will be discussed in further detail at your follow- up appointment, if applicable. Please Follow Up With: Raudel Samaniego MD - Neurology - stroke When: 2 weeks Please Follow Up With: Nils Sanders MD - Holter monitor, PFO When: 1-2 weeks Proposed Discharge Date: 02/06/20
--- NOTE | 2020-02-07 15:25 | PCM.DC.SUM ---
<Jaswinder Reyes - Last Filed: 02/07/20 15:25> Discharge Date and Diagnosis - Problem List Patient Problems: Active and Suspected Problems (This Medical Record has been edited. Action required.) Paresthesias (Acute) Left arm weakness (Acute) Hypertensive urgency (Acute) Date of Admission: 02/05/20 Date of Discharge: 02/07/20 - Primary Discharge Diagnosis Acute Problems: Active Problems (This Medical Record has been edited. 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 Action required.) Hypertension (Chronic) DM type 2 (diabetes mellitus, type 2) (Chronic) Hypothyroidism (Chronic) Hospital Course and Treatment Imaging Results: CT/Brain/Head without Contrast IMPRESSION: Chronic involutional changes of the brain. RAD/Chest 1 View IMPRESSION: Stable, nonacute portable x-ray examination of the chest. CT/CTA Head AND Neck W/ Contrast IMPRESSION: 1. No large vessel occlusion or intracranial aneurysm. 2. Bilateral carotid bulb and proximal ICA atherosclerosis without hemodynamically significant stenosis. No arterial dissection. N.B. : The above information has been verbally conveyed by Jose Diaz MD (Brooks) to Manny Morrison MD, on 02/05/2020 11:40:00 (ET). 2D TTE: Interpretation Summary Mild (1+) aortic valve insufficiency. Normal LV size. Left ventricular systolic function is normal. The estimated ejection fraction is 60 %. Mild (1+) tricuspid valve insufficiency. Pulmonary artery systolic pressure is 33 mmHg. Patent foramen ovale. MRI/Brain without Contrast IMPRESSION: Involutional changes of the brain, as described above. 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 Consults: SOC - neuro Operations: None Procedures: 2-D Echocardiogram Summary of Care Provided: Hospital course: The patient is a 84 year old F past medical history as above who presented to the emergency room with left arm and periorbital tingling and numbness for approximately [address] of the brain was negative, EKG showed normal sinus rhythm, troponin was negative. She was admitted for stroke work-up. She underwent an MRI of the brain which demonstrated an acute versus subacute stomach infarct. SOC telemetry neurology was consulted and recommended 30 days of dual antiplatelet therapy. Echocardiogram was obtained and did demonstrate a PFO. She did have significant varicose veins and venous stasis changes with positive Homans' sign however a follow-up venous ultrasound of the lower extremity did not demonstrate DVT. She was having heart palpitations at the time of the onset of her symptoms however no atrial fibrillation was detected while she was here. Given her palpitations, stroke, and PFO I recommended that she follow-up with cardiology at discharge in 1 to 2 weeks. I discussed the case with who recommended a 48-hour monitor which was arranged for her at the time of discharge. She was discharged home in stable condition. She will need also follow-up with neurology in 2 weeks, follow-up with her PCP in 1 to 2 weeks. This patient was seen by Jaswinder Reyes PA-C under the supervision of Doctor Spain. [] Patient Problems: Active and Suspected Problems (This Medical Record has been edited. Action required.) Paresthesias (Acute) Left arm weakness (Acute) Hypertensive urgency (Acute) - Physical Exam Vitals/I&O's: Vital Signs Temp Pulse Resp BP Pulse Ox 98.6 F 85 18 144/79 H 94 02/07/20 15:15 02/07/20 15:15 02/07/20 15:15 02/07/20 15:15 02/07/20 15:15 Oxygen Flow Rate (L/min) 2 Oxygen Delivery Method Room Air Weight: 156 lb 1.396 oz Body Mass Index (BMI) 27.6 Finger Stick Blood Glucose 150 Intake and Output for Last 24 Hours 02/05/20 02/06/20 02/07/20 23:59 23:59 23:59 Intake Total 1040 / 1280 240 / 240 Balance 1040 / 1280 240 / 240 General: Alert, Oriented x3, Cooperative HEENT: Atraumatic, PERRLA, EOMI, Normocephalic Neck: Supple, No JVD, Negative Carotid Bruits Lungs: Clear to auscultation, Normal air movement Cardiovascular: Regular rate, No murmurs Abdomen: Bowel Sounds Present, Soft, Non Tender Extremities: No edema, Capillary Refill Less than 3 Seconds Skin: No rashes, No breakdown Musculoskeletal: No Tenderness to Palpation of Joints or Extremities Neurological: Cranial nerves II-XII grossly intact Psych/Mental Status: Normal Affect, Appropriate, Alert and oriented to time, place, person, mood and affect Laboratory Results 02/06/20 16:34: POC Glucose 144 H 02/06/20 22:47: POC Glucose 131 H 02/07/20 04:58: WBC 4.5, RBC 3.79 L, Hgb 11.5 L, Hct 36.1 L, MCV 95.3, MCH 30.3, MCHC 31.9 L, RDW Std Deviation 45.0 H, RDW Coeff of Shaq 12.8, Plt Count 204, MPV 9.2 02/07/20 04:58: Sodium 139, Potassium 3.8, Chloride 104, Carbon Dioxide 27.0, Anion Gap 8, BUN 25 H, Creatinine 1.02, Estim Creat Clear Calc 32.09, Est GFR (MDRD) Af Amer 67, Est GFR (MDRD) Non-Af 55 L, BUN/Creatinine Ratio 24.5 H, Glucose 111 H, Calcium 9.0, Magnesium 2.0 02/07/20 06:49: POC Glucose 117 H 02/07/20 10:50: Vitamin B12 298 02/07/20 11:52: POC Glucose 139 H Current Medications Acetaminophen (Acetaminophen 325 Mg Tablet) 650 mg PO Q4H PRN PRN PRN Reason: Pain 1-10/Headache/Temp>99.6F Acetaminophen (Acetaminophen 650 Mg Suppository) 650 mg RECTAL Q4H PRN PRN PRN Reason: Pain 1-10/Headache/Temp>99.6F Albuterol Sulfate (Albuterol 2.5 Mg/3 Ml Vial.Neb.) 2.5 mg INHALATION Q2H PRN PRN PRN Reason: SOB/Wheezing Aspirin (Aspirin 81 Mg Tab.Chew) 81 mg PO DAILY@0800 [facility] Last Admin: 02/07/20 11:22 Dose: 81 mg Documented by: Atorvastatin Calcium (Atorvastatin Calcium 40 Mg Tablet) 40 mg PO QHS [facility] Last Admin: 02/06/20 23:42 Dose: 40 mg Documented by: Clopidogrel Bisulfate (Clopidogrel Bisulfate 75 Mg Tablet) 75 mg PO DAILY [facility] Last Admin: 02/07/20 11:23 Dose: 75 mg Documented by: Dextrose (Dextrose 50%-Water 25 Gm/50 Ml Disp.Syrin) 0 gm IV X1 PRN; Protocol PRN Reason: Hypoglycemia Famotidine (Famotidine 20 Mg Tablet) 20 mg PO BID [facility] Last Admin: 02/07/20 11:23 Dose: 20 mg Documented by: Gabapentin (Gabapentin 300 Mg Capsule) 300 mg PO DAILY [facility] Last Admin: 02/07/20 11:23 Dose: 300 mg Documented by: Glucagon (Glucagon 1 Mg/Ml Syringe) 1 mg IM .X1 PRN PRN Reason: Hypoglycemia Heparin Sodium (Porcine) (Heparin Injection (Vial) 5,000 Unit/Ml Vial) 5,000 unit SC Q12 [facility] Last Admin: 02/07/20 11:22 Dose: 5,000 unit Documented by: Insulin Human Lispro (Insulin Lispro 100 Unit/Ml Insuln.Pen) 0 unit SC ACHS [facility]; Protocol Last Admin: 02/07/20 13:17 Dose: Not Given Documented by: Labetalol HCl (Labetalol (Prefilled) 20 Mg/4 Ml) 20 mg IV X1 PRN PRN Reason: Blood Pressure Levothyroxine Sodium (Levothyroxine 88 Mcg Tablet) 88 mcg PO DAILY@0600 [facility] Last Admin: 02/07/20 05:48 Dose: 88 mcg Documented by: Ondansetron HCl (Ondansetron 4 Mg/2 Ml Vial) 4 mg IV Q8H PRN PRN PRN Reason: NAUSEA/VOMITING Sodium Chloride (0.9% Saline Lock 10 Ml Syringe) 10 - 40 ml IV UD PRN PRN Reason: SALINE FLUSH Last Admin: 02/07/20 11:31 Dose: 10 ml Documented by: Discharge Diet: Low fat/ Low Cholesterol, 1800 Calorie Control Diet, 2000 mg Sodium Diet Discharge Activity: May Not Drive Home Medications: Medications to take at Discharge Amlodipine [Norvasc] 5 mg PO DAILY 02/05/20 Aspirin [Aspirin, Baby] 81 mg PO DAILY@0800 02/05/20 Gabapentin 300 mg PO QHS 02/05/20 Levothyroxine Sodium 88 mcg PO DAILY 02/05/20 Meloxicam [Mobic] 15 mg PO DAILY 02/05/20 Metformin HCl [Glucophage] 500 mg PO DAILY 02/05/20 Clopidogrel Bisulfate [Plavix] 75 mg PO DAILY #90 tab 02/06/20 Atorvastatin Calcium [Lipitor] 40 mg PO QHS #30 tab 02/07/20 Following Prescriptions Were Given to Patient: Atorvastatin Calcium [Lipitor] 40 mg PO QHS #30 tab Transmission Status: Received by [id number] Clopidogrel Bisulfate [Plavix] 75 mg PO DAILY #90 tab Transmission Status: Received by [id number] Other Amb Orders: Cardiac Holter Monitor, Set-Up [[facility]] Time Frame: 02/07/20, Location: None Selected Primary Care Physician: Ap Morelos Chi, MD [Primary Care Provider] - Please follow up with your Primary Care Physician in: in 1 week Please Follow Up With: Raudel Samaniego MD - Neurology - stroke When: 2 weeks Please Follow Up With: Nils Sanders MD - Holter monitor, PFO When: 1-2 weeks Disposition: Home Minutes spent on discharge:: 35 Patient Condition:: Stable Medical Necessity - Tobacco Use Smoking Status: Never smoker Tobacco Use: Non-smoker Meaningful Use Info Meaningful Use Diagnoses (Choose all that apply): Ischemic CVA - CVA Therapy Assessed for PT,OT and/or ST?: Yes - Ischemic Stroke Antithrombotic order at d/c?: Yes Dx of Atrial fib/flutter?: No Statins at discharge?: Yes Primary Dx Acute Ischemic CVA?: Yes IV tPA ordered during stay?: No Reason IV t-PA not ordered: Procedure not Indicated <Temo Spain - Last Filed: 02/07/20 15:49> Discharge Date and Diagnosis - Primary Discharge Diagnosis Acute Problems: Active Problems (This Medical Record has been edited. Action required.) Paresthesias (Acute) Left arm weakness (Acute) Hypertensive urgency (Acute) - Secondary Discharge Diagnosis Chronic Problems: Chronic Problems (This Medical Record has been edited. Action required.) Hypertension (Chronic) DM type 2 (diabetes mellitus, type 2) (Chronic) Hypothyroidism (Chronic) Hospital Course and Treatment Summary of Care Provided: This patient was seen in conjunction with Jaswinder Reyes PA-C . I have independently interviewed and examined the patient and reviewed pertinent historical, laboratory, and other data. Please refer to Jaswinder Reyes PA-C note for details of this patient's presentation, findings, and recommendations. I have reviewed Jaswinder Reyes PA-C note and concur with documented findings. In brief, patient is an 84-year-old female admitted with periorbital tingling and numbness. 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 Admitted to a monitored bed for subsequent management Hospital course: As documented above - Physical Exam Vitals/I&O's: Vital Signs Temp Pulse Resp BP Pulse Ox 98.6 F 85 18 144/79 H 94 02/07/20 15:15 02/07/20 15:15 02/07/20 15:15 02/07/20 15:15 02/07/20 15:15 Oxygen Flow Rate (L/min) 2 Oxygen Delivery Method Room Air Weight: 70.8 kg Body Mass Index (BMI) 27.6 Finger Stick Blood Glucose 150 Intake and Output for Last 24 Hours 02/05/20 02/06/20 02/07/20 23:59 23:59 23:59 Intake Total 1040 / 1280 240 / 240 Balance 1040 / 1280 240 / 240 Laboratory Results 02/06/20 16:34: POC Glucose 144 H 02/06/20 22:47: POC Glucose 131 H 02/07/20 04:58: WBC 4.5, RBC 3.79 L, Hgb 11.5 L, Hct 36.1 L, MCV 95.3, MCH 30.3, MCHC 31.9 L, RDW Std Deviation 45.0 H, RDW Coeff of Shaq 12.8, Plt Count 204, MPV 9.2 02/07/20 04:58: Sodium 139, Potassium 3.8, Chloride 104, Carbon Dioxide 27.0, Anion Gap 8, BUN 25 H, Creatinine 1.02, Estim Creat Clear Calc 32.09, Est GFR (MDRD) Af Amer 67, Est GFR (MDRD) Non-Af 55 L, BUN/Creatinine Ratio 24.5 H, Glucose 111 H, Calcium 9.0, Magnesium 2.0 02/07/20 06:49: POC Glucose 117 H 02/07/20 10:50: Vitamin B12 298 02/07/20 11:52: POC Glucose 139 H Current Medications Acetaminophen (Acetaminophen 325 Mg Tablet) 650 mg PO Q4H PRN PRN PRN Reason: Pain 1-10/Headache/Temp>99.6F Acetaminophen (Acetaminophen 650 Mg Suppository) 650 mg RECTAL Q4H PRN PRN PRN Reason: Pain 1-10/Headache/Temp>99.6F Albuterol Sulfate (Albuterol 2.5 Mg/3 Ml Vial.Neb.) 2.5 mg INHALATION Q2H PRN PRN PRN Reason: SOB/Wheezing Aspirin (Aspirin 81 Mg Tab.Chew) 81 mg PO DAILY@0800 [facility] Last Admin: 02/07/20 11:22 Dose: 81 mg Documented by: Atorvastatin Calcium (Atorvastatin Calcium 40 Mg Tablet) 40 mg PO QHS [facility] Last Admin: 02/06/20 23:42 Dose: 40 mg Documented by: Clopidogrel Bisulfate (Clopidogrel Bisulfate 75 Mg Tablet) 75 mg PO DAILY [facility] Last Admin: 02/07/20 11:23 Dose: 75 mg Documented by: Dextrose (Dextrose 50%-Water 25 Gm/50 Ml Disp.Syrin) 0 gm IV X1 PRN; Protocol PRN Reason: Hypoglycemia Famotidine (Famotidine 20 Mg Tablet) 20 mg PO BID [facility] Last Admin: 02/07/20 11:23 Dose: 20 mg Documented by: Gabapentin (Gabapentin 300 Mg Capsule) 300 mg PO DAILY [facility] Last Admin: 02/07/20 11:23 Dose: 300 mg Documented by: Glucagon (Glucagon 1 Mg/Ml Syringe) 1 mg IM .X1 PRN PRN Reason: Hypoglycemia Heparin Sodium (Porcine) (Heparin Injection (Vial) 5,000 Unit/Ml Vial) 5,000 unit SC Q12 [facility] Last Admin: 02/07/20 11:22 Dose: 5,000 unit Documented by: Insulin Human Lispro (Insulin Lispro 100 Unit/Ml Insuln.Pen) 0 unit SC ACHS [facility]; Protocol Last Admin: 02/07/20 13:17 Dose: Not Given Documented by: Labetalol HCl (Labetalol (Prefilled) 20 Mg/4 Ml) 20 mg IV X1 PRN PRN Reason: Blood Pressure Levothyroxine Sodium (Levothyroxine 88 Mcg Tablet) 88 mcg PO DAILY@0600 [facility] Last Admin: 02/07/20 05:48 Dose: 88 mcg Documented by: Ondansetron HCl (Ondansetron 4 Mg/2 Ml Vial) 4 mg IV Q8H PRN PRN PRN Reason: NAUSEA/VOMITING Sodium Chloride (0.9% Saline Lock 10 Ml Syringe) 10 - 40 ml IV UD PRN PRN Reason: SALINE FLUSH Last Admin: 02/07/20 11:31 Dose: 10 ml Documented by: Inpatient E&M: [id number] Disch Hosp
--- NOTE | 2020-02-07 17:29 | NURSING ---
pt found it difficult to focus on DC instructions as she was focused on going home. all instructions reviewed w/son. he indicates understanding.
== END 2020-02-07 17:15 | disposition home or self-care (01) | DRG 65 ==
LOC: ED 12:28 → PCU 12:41
PROVIDERS: Physician Assistant; Admitting Provider Internal Medicine; Emergency Provider Emergency Medicine; PCP Family Medicine Geriatric Medicine; Visit Provider Internal Medicine
DX: I63.9 Cerebral infarction, unspecified (principal); Q21.1 Atrial septal defect; I16.1 Hypertensive emergency; R00.2 Palpitations; I10 Essential (primary) hypertension; E78.5 Hyperlipidemia, unspecified; E11.9 Type 2 diabetes mellitus without complications; R29.705 NIHSS score 5; Z79.84 Long term (current) use of oral hypoglycemic drugs; Z79.899 Other long term (current) drug therapy; E03.9 Hypothyroidism, unspecified; G83.24 Monoplegia of upper limb affecting left nondominant side; R20.0 Anesthesia of skin
CPT/HCPCS: 36415; 70450; 70496; 70498; 70551; 71045; 80048; 80053; 80061; 82607; 82962; 83036; 83735; 84443; 84484; 85025; 85027; 85610; 85730; 92610; 93005; 93306; 93970; 94762; 97110; 97162; 97166; 97530; 97535; 97802; 99251; 99284; Q9967; A4216; G0463

== ENCOUNTER → 2020-02-07 11:52 | Outpatient (CLI) | payer MEDICARE, OTHER, SELFPAY ==
[2020-02-06 07:50] VITALS: BMI 27.6
== END ==
PROVIDERS: PCP Family Medicine Geriatric Medicine; Referring Provider Physician Assistant; Visit Provider Physician Assistant
DX: R00.2 Palpitations (principal); Z86.73 Personal history of transient ischemic attack (TIA), and cerebral infarction without residual deficits
CPT/HCPCS: 93225; 93226

== ENCOUNTER → 2020-02-16 11:16 | Outpatient (CLI) | payer MEDICARE, OTHER, SELFPAY ==
[2020-02-16 11:11] VITALS: BMI 28.9
[2020-02-16 12:17] LABS: Vitamin B12 304 pg/mL (211-911)
[2020-02-16 12:27] LABS: Ferritin 62 ng/mL (8-252); Iron 81 ug/dL (50-170)
[2020-02-17 16:08] LABS: Free Kappa Light Chains 9.5 mg/L (3.3-19.4); Free Lambda Light Chains 18.7 mg/L (5.7-26.3)
== END ==
PROVIDERS: PCP Family Medicine Geriatric Medicine; Referring Provider Psychiatry & Neurology Neurology; Visit Provider Psychiatry & Neurology Neurology
DX: D64.9 Anemia, unspecified (principal); E11.9 Type 2 diabetes mellitus without complications; G62.9 Polyneuropathy, unspecified
CPT/HCPCS: 36415; 82607; 82728; 82746; 83540; 83883

== ENCOUNTER → 2020-04-02 06:28 | Outpatient (CLI) | payer MEDICARE, OTHER, SELFPAY ==
[2020-02-22 08:52] VITALS: BMI 27.1
--- NOTE | 2020-04-03 17:54 | STRESSREP ---
Stress Test Report Pharmacologic myocardial perfusion stress test. 84-year-old lady with a history of coronary artery disease. Medications: Norvasc, aspirin, gabapentin, Glucophage, Plavix, Lipitor. Stress protocol: Resting EKG demonstrates normal sinus rhythm with rate of 79 bpm normal intervals are noted resting blood pressure is 144/70 mmHg. 0.4 mg of regadenoson was infused per usual protocol followed by rapid intravenous saline flush injection continuous EKG monitoring was performed. The maximum heart rate was 111 bpm which was 80% of max impacted heart rate maximum workload was 1 metabolic equivalent. At rest there were no ST or T wave changes noted suggest ischemia at peak infusion nonspecific ST-T wave changes were noted we did not meet the criteria for ischemia. No clinical angina was noted. Myocardial perfusion protocol. 11.1 mCi of technetium 99m sestamibi was injected at rest. 0.4 mg of regadenoson was infused per usual protocol. At peak infusion 32.8 mCi of technetium 99m sestamibi was injected stress images were obtained stress and rest images were reconstructed and compared in the short axis vertical long horizontal long axis. Gated images were also obtained per Perfusion SPECT analysis: Review of the stress images demonstrate normal uptake of tracer noted in all areas of the myocardium the resting images similar demonstrate normal uptake of tracer noted in all areas of the myocardium. No reversibility is noted suggest ischemia no previous infarct is noted. Gated SPECT analysis: The gated ejection fraction is 66%. Conclusion: Normal pharmacologic myocardial perfusion stress test with no evidence of ischemia. Preserved ejection fraction.
== END ==
PROVIDERS: PCP Family Medicine Geriatric Medicine; Referring Provider Internal Medicine Cardiovascular Disease; Visit Provider Internal Medicine Cardiovascular Disease
DX: R07.9 Chest pain, unspecified (principal); I25.10 Atherosclerotic heart disease of native coronary artery without angina pectoris
CPT/HCPCS: 78452; 93017; A9500; A4216; J2785

== ENCOUNTER → 2020-07-10 10:12 | Outpatient (CLI) | payer MEDICARE, OTHER, SELFPAY ==
[2020-02-22 08:52] VITALS: BMI 27.1
[2020-07-10 11:35] LABS: Vitamin D,25 Hydroxy 75.2 ng/mL
== END ==
PROVIDERS: PCP Family Medicine Geriatric Medicine; Referring Provider Nurse Practitioner Family; Visit Provider Nurse Practitioner Family
DX: E55.9 Vitamin D deficiency, unspecified (principal)
CPT/HCPCS: 36415; 82306

== ENCOUNTER → 2020-07-19 10:11 | Outpatient (CLI) | payer MEDICARE, OTHER, SELFPAY ==
[2020-02-22 08:52] VITALS: BMI 27.1
[2020-07-19 11:27] LABS: Absolute Neutrophil Count 3.1 X10^3/uL (2.0-7.7); Basophil# 0.03 X10^3/uL; Basophil% 0.6 % (0-1); Eosinophil# 0.16 X10^3/uL; Eosinophils% 3.2 % (0-5); Hematocrit 38.6 % (37-47); Hemoglobin 12.3 g/dL (12.0-15.0); Mean Corp Hgb Conc 31.9 g/dL (32-36); Mean Corpuscular Hgb 30.3 pg (27.0-32.0); Mean Corpuscular Volume 95.1 fL (81-99); Mean Platelet Vol. 10.2 fl (6.2-12.0); NRBC Flagged by Analyzer 0 % (0-5); Platelet Count 230 K/mm3 (150-450); RBC Distribution Width CV 12.9 % (11.6-14.6); RBC Distribution Width SD 44.7 fl (35.1-43.9); Red Blood Count 4.06 M/mm3 (4.2-5.4)
[2020-07-19 11:41] LABS: Vitamin D,25 Hydroxy 75.9 ng/mL
[2020-07-19 11:47] LABS: ALB/GLOB Ratio 1.2 RATIO (0.9-2.4); AST(SGOT) 14 U/L (15-37); Alanine Aminotransfer ALT/SGPT 27 U/L (13-56); Albumin, Serum 4.1 g/dL (3.2-5.0); Alkaline Phosphatase 73 U/L (45-117); Anion Gap 5 (5-15); BUN 21 mg/dL (7-18); BUN/Creat Ratio 22.9 RATIO (10-20); Calcium,Total 9.7 mg/dL (8.5-10.1); Chloride 104 mmol/L (98-107); Creatinine, Serum 0.92 mg/dL (0.55-1.02); EST Glomerular Filtration Rate 62 mL/min (>60); Est Glom Filt Rate - Afr Amer 75 mL/min (>60); Globulin 3.3 g/dL (2.2-4.2); Glucose 132 mg/dL (74-106); Potassium 4.2 mmol/L (3.5-5.1); Protein, Total 7.4 g/dL (6.4-8.2); Sodium Level 138 mmol/L (136-145); Thyroid Stim Hormone (TSH) 1.68 uIU/mL (0.358-3.74)
== END ==
PROVIDERS: PCP Family Medicine Geriatric Medicine; Visit Provider Family Medicine Geriatric Medicine
DX: E11.9 Type 2 diabetes mellitus without complications (principal); E55.9 Vitamin D deficiency, unspecified; I10 Essential (primary) hypertension
CPT/HCPCS: 36415; 80053; 82306; 84443; 85025

== ENCOUNTER → 2021-01-21 10:00 | Outpatient (CLI) | payer MEDICARE, OTHER, SELFPAY ==
[2021-01-21 12:31] LABS: Absolute Lymphocyte Count 1.11 X10^3/uL (0.83-4.51); Absolute Neutrophil Count 3.2 X10^3/uL (2.0-7.7); Basophil# 0.03 X10^3/uL; Basophil% 0.6 % (0-1); Eosinophil# 0.16 X10^3/uL; Eosinophils% 3.3 % (0-5); Hematocrit 37.8 % (37-47); Hemoglobin 12.3 g/dL (12.0-15.0); Lymphocyte # 1.11 X10^3/ul (0.83-4.51); Lymphocyte % 22.6 % (19-41); Mean Corp Hgb Conc 32.5 g/dL (32-36); Mean Corpuscular Hgb 30.8 pg (27.0-32.0); Mean Corpuscular Volume 94.7 fL (81-99); Mean Platelet Vol. 10.1 fl (6.2-12.0); Monocyte# 0.43 X10^3/uL; Monocyte% 8.8 % (0-10); NRBC Flagged by Analyzer 0 % (0-5); Neutrophil # 3.17 X10^3/uL (2.7-7.7); Neutrophil % 64.5 % (47-70); Platelet Count 230 K/mm3 (150-450); RBC Distribution Width CV 13.2 % (11.6-14.6); RBC Distribution Width SD 45.4 fl (35.1-43.9); Red Blood Count 3.99 M/mm3 (4.2-5.4); White Blood Count 4.9 K/mm3 (4.4-11.0)
[2021-01-21 12:55] LABS: Vitamin D,25 Hydroxy 100.6 ng/mL
[2021-01-21 13:30] LABS: ALB/GLOB Ratio 1.1 RATIO (0.9-2.4); AST(SGOT) 17 U/L (15-37); Alanine Aminotransfer ALT/SGPT 28 U/L (13-56); Albumin, Serum 3.9 g/dL (3.2-5.0); Alkaline Phosphatase 76 U/L (45-117); Anion Gap 10 (5-15); BUN 17 mg/dL (7-18); BUN/Creat Ratio 17.3 RATIO (10-20); Chloride 102 mmol/L (98-107); Creatinine, Serum 0.98 mg/dL (0.55-1.02); EST Glomerular Filtration Rate 57 mL/min (>60); Est Glom Filt Rate - Afr Amer 69 mL/min (>60); Globulin 3.7 g/dL (2.2-4.2); Glucose 123 mg/dL (74-106); Potassium 4.4 mmol/L (3.5-5.1); Protein, Total 7.6 g/dL (6.4-8.2); Sodium Level 140 mmol/L (136-145); Thyroid Stim Hormone (TSH) 2.11 uIU/mL (0.358-3.74)
== END ==
PROVIDERS: PCP Family Medicine Geriatric Medicine; Visit Provider Family Medicine Geriatric Medicine
DX: E11.9 Type 2 diabetes mellitus without complications (principal); E55.9 Vitamin D deficiency, unspecified; I10 Essential (primary) hypertension
CPT/HCPCS: 36415; 80053; 82306; 84443; 85025

== ENCOUNTER → 2021-02-19 13:21 | Outpatient (CLI) | payer MEDICARE, OTHER, SELFPAY ==
--- NOTE | 2021-02-19 13:24 | CDU_ITS ---
Reason For Study: History of stroke Rt. Velocities/BP Lt. Velocities/BP Prox CCA 89.8/5.7 cm/sec. Prox CCA 68.4/11.3 cm/sec. Mid CCA 88.2/13.3 cm/sec. Mid CCA 72.8/10.2 cm/sec. Dist CCA 55.1/11.6 cm/sec. Dist CCA 58.6/8 cm/sec. Prox ICA 62.9/8 cm/sec. Prox ICA 63/13.9 cm/sec. Mid ICA 67.4/12.4 cm/sec. Mid ICA 64.2/15.2 cm/sec. Dist ICA 54.2/12.4 cm/sec. Dist ICA 86.4/18.8 cm/sec. Rt. ICA/CCA = 0.76. Lt. ICA/CCA = 1.26. Prox ECA 115.6/2.4 cm/sec. Prox ECA 109.7/6.5 cm/sec. Rt. Vert. 57.5/11.3 cm/sec. Lt. Vert. 45.6/9.7 cm/sec. Right Extracranial There is intimal thickening but no significant atherosclerotic plaque noted in the right common carotid artery. There is heterogeneous, smooth atherosclerotic plaque noted in the right internal carotid artery. There is intimal thickening but no significant atherosclerotic plaque noted in the right external carotid artery. Antegrade flow is noted in the right vertebral artery. Left Extracranial There is heterogeneous, irregular atherosclerotic plaque noted in the left common carotid artery. There is heterogeneous, irregular atherosclerotic plaque noted in the left internal carotid artery. The left internal carotid artery is very tortuous. There is intimal thickening but no significant atherosclerotic plaque noted in the left external carotid artery. Antegrade flow is noted in the left vertebral artery. Procedure Carotid Duplex [id number]. This is a Carotid Duplex examination using B-mode, color flow and specral Doppler. Exam performed in department. VL/Carotid Duplex Ultrasound Interpretation Summary Smooth plaque at the proximal right internal carotid artery with less than 50% stenosis Less than 50% stenosis right external carotid artery Mild irregular plaque at the proximal left internal carotid artery with less th an 50% stenosis. Quite tortuous left internal carotid artery. Less than 50% stenosis left external carotid artery Patent and antegrade vertebral arteries bilaterally Ordering Physician: Jumana Doty Referring Physician: Ap Morelos Chi Performed By: Rolanda Kim RVT
== END ==
PROVIDERS: PCP Family Medicine Geriatric Medicine; Referring Provider Nurse Practitioner Family; Visit Provider Nurse Practitioner Family
DX: Z86.73 Personal history of transient ischemic attack (TIA), and cerebral infarction without residual deficits (principal)
CPT/HCPCS: 93880

== ENCOUNTER 2021-07-22 09:10 | Outpatient (CLI) | payer MEDICARE, OTHER, SELFPAY ==
[2021-07-22 12:24] LABS: Absolute Lymphocyte Count 1.15 X10^3/uL (0.83-4.51); Basophil# 0.03 X10^3/uL; Basophil% 0.6 % (0-1); Eosinophil# 0.15 X10^3/uL; Eosinophils% 3.1 % (0-5); Hematocrit 36.2 % (37-47); Hemoglobin 11.7 g/dL (12.0-15.0); Lymphocyte # 1.15 X10^3/ul (0.83-4.51); Lymphocyte % 24.1 % (19-41); Mean Corp Hgb Conc 32.3 g/dL (32-36); Mean Corpuscular Hgb 30.2 pg (27.0-32.0); Mean Corpuscular Volume 93.3 fL (81-99); Mean Platelet Vol. 10.1 fl (6.2-12.0); Monocyte% 8.4 % (0-10); NRBC Flagged by Analyzer 0 % (0-5); Neutrophil # 3.02 X10^3/uL (2.7-7.7); Neutrophil % 63.4 % (47-70); Platelet Count 228 K/mm3 (150-450); RBC Distribution Width CV 13.3 % (11.6-14.6); RBC Distribution Width SD 45.4 fl (35.1-43.9); Red Blood Count 3.88 M/mm3 (4.2-5.4); White Blood Count 4.8 K/mm3 (4.4-11.0)
[2021-07-22 12:37] LABS: Vitamin D,25 Hydroxy 65.5 ng/mL
[2021-07-22 12:55] LABS: ALB/GLOB Ratio 1.1 RATIO (0.9-2.4); AST(SGOT) 17 U/L (15-37); Alanine Aminotransfer ALT/SGPT 32 U/L (13-56); Albumin, Serum 3.9 g/dL (3.2-5.0); Alkaline Phosphatase 73 U/L (45-117); Anion Gap 9 (5-15); BUN 15 mg/dL (7-18); BUN/Creat Ratio 15.8 RATIO (10-20); Calcium,Total 9.2 mg/dL (8.5-10.1); Chloride 102 mmol/L (98-107); Creatinine, Serum 0.95 mg/dL (0.55-1.02); EST Glomerular Filtration Rate 60 mL/min (>60); Est Glom Filt Rate - Afr Amer 72 mL/min (>60); Globulin 3.4 g/dL (2.2-4.2); Glucose 148 mg/dL (74-106); Potassium 4.5 mmol/L (3.5-5.1); Protein, Total 7.3 g/dL (6.4-8.2); Sodium Level 138 mmol/L (136-145)
== END 2021-07-22 23:59 | disposition home or self-care (01) ==
LOC: POLAB3 09:13
PROVIDERS: PCP Family Medicine Geriatric Medicine; Visit Provider Family Medicine Geriatric Medicine
DX: E11.9 Type 2 diabetes mellitus without complications (principal); E55.9 Vitamin D deficiency, unspecified; I10 Essential (primary) hypertension
CPT/HCPCS: 36415; 80053; 82306; 84443; 85025

== ENCOUNTER → 2022-01-22 | Outpatient (CLI) | payer MEDICARE, OTHER, SELFPAY ==
[2022-01-22 13:23] LABS: Absolute Lymphocyte Count 1.23 X10^3/uL (0.83-4.51); Absolute Neutrophil Count 3.7 X10^3/uL (2.0-7.7); Basophil# 0.04 X10^3/uL; Basophil% 0.7 % (0-1); Eosinophil# 0.18 X10^3/uL; Eosinophils% 3.2 % (0-5); Hematocrit 36.9 % (37-47); Hemoglobin 11.6 g/dL (12.0-15.0); Lymphocyte # 1.23 X10^3/ul (0.83-4.51); Lymphocyte % 21.7 % (19-41); Mean Corp Hgb Conc 31.4 g/dL (32-36); Mean Corpuscular Hgb 30.3 pg (27.0-32.0); Mean Corpuscular Volume 96.3 fL (81-99); Mean Platelet Vol. 10.2 fl (6.2-12.0); Monocyte% 8.8 % (0-10); NRBC Flagged by Analyzer 0 % (0-5); Neutrophil # 3.71 X10^3/uL (2.7-7.7); Neutrophil % 65.2 % (47-70); Platelet Count 236 K/mm3 (150-450); RBC Distribution Width CV 13.3 % (11.6-14.6); RBC Distribution Width SD 46.6 fl (35.1-43.9); Red Blood Count 3.83 M/mm3 (4.2-5.4); White Blood Count 5.7 K/mm3 (4.4-11.0)
[2022-01-22 13:55] LABS: Vitamin D,25 Hydroxy 61.7 ng/mL
[2022-01-23 16:56] LABS: ALB/GLOB Ratio 1.2 RATIO (0.9-2.4); AST(SGOT) 18 U/L (15-37); Alanine Aminotransfer ALT/SGPT 25 U/L (13-56); Albumin, Serum 4.2 g/dL (3.2-5.0); Alkaline Phosphatase 72 U/L (45-117); Anion Gap 9 (5-15); BUN 19 mg/dL (7-18); BUN/Creat Ratio 18.1 RATIO (10-20); Chloride 104 mmol/L (98-107); Creatinine, Serum 1.05 mg/dL (0.55-1.02); EST Glomerular Filtration Rate 53 mL/min (>60); Est Glom Filt Rate - Afr Amer 64 mL/min (>60); Globulin 3.5 g/dL (2.2-4.2); Glucose 136 mg/dL (74-106); Potassium 4.1 mmol/L (3.5-5.1); Protein, Total 7.7 g/dL (6.4-8.2); Sodium Level 140 mmol/L (136-145)
== END | disposition home or self-care (01) ==
LOC: POLAB3 09:04
PROVIDERS: PCP Family Medicine Geriatric Medicine; Visit Provider Family Medicine Geriatric Medicine
DX: I10 Essential (primary) hypertension (principal); E11.9 Type 2 diabetes mellitus without complications; E55.9 Vitamin D deficiency, unspecified
CPT/HCPCS: 36415; 80053; 82306; 84443; 85025

== ENCOUNTER → 2022-07-23 | Outpatient (CLI) | payer MEDICARE, OTHER, SELFPAY ==
[2022-07-23 13:02] LABS: Absolute Lymphocyte Count 1.14 X10^3/uL (0.83-4.51); Absolute Neutrophil Count 3.2 X10^3/uL (2.0-7.7); Basophil# 0.03 X10^3/uL; Basophil% 0.6 % (0-1); Hematocrit 38.5 % (37-47); Hemoglobin 12.1 g/dL (12.0-15.0); Lymphocyte # 1.14 X10^3/ul (0.83-4.51); Lymphocyte % 22.7 % (19-41); Mean Corp Hgb Conc 31.4 g/dL (32-36); Mean Corpuscular Hgb 30.3 pg (27.0-32.0); Mean Corpuscular Volume 96.5 fL (81-99); Monocyte# 0.43 X10^3/uL; Monocyte% 8.5 % (0-10); NRBC Flagged by Analyzer 0 % (0-5); Neutrophil # 3.22 X10^3/uL (2.7-7.7); Platelet Count 247 K/mm3 (150-450); RBC Distribution Width CV 13.3 % (11.6-14.6); RBC Distribution Width SD 47.1 fl (35.1-43.9); Red Blood Count 3.99 M/mm3 (4.2-5.4)
[2022-07-23 13:39] LABS: Vitamin D,25 Hydroxy 54.7 ng/mL
[2022-07-23 14:00] LABS: ALB/GLOB Ratio 1.1 RATIO (0.9-2.4); AST(SGOT) 18 U/L (15-37); Alanine Aminotransfer ALT/SGPT 31 U/L (13-56); Alkaline Phosphatase 78 U/L (45-117); Anion Gap 6 (5-15); BUN 19 mg/dL (7-18); BUN/Creat Ratio 19.6 RATIO (10-20); Calcium,Total 9.8 mg/dL (8.5-10.1); Chloride 105 mmol/L (98-107); Creatinine, Serum 0.97 mg/dL (0.55-1.02); EST Glomerular Filtration Rate 58 mL/min (>60); Est Glom Filt Rate - Afr Amer 70 mL/min (>60); Globulin 3.5 g/dL (2.2-4.2); Glucose 144 mg/dL (74-106); Potassium 4.2 mmol/L (3.5-5.1); Protein, Total 7.5 g/dL (6.4-8.2); Sodium Level 137 mmol/L (136-145); Thyroid Stim Hormone (TSH) 1.53 uIU/mL (0.358-3.74)
== END | disposition home or self-care (01) ==
LOC: POLAB3 09:16
PROVIDERS: PCP Family Medicine Geriatric Medicine; Visit Provider Family Medicine Geriatric Medicine
DX: I10 Essential (primary) hypertension (principal); E11.65 Type 2 diabetes mellitus with hyperglycemia; E55.9 Vitamin D deficiency, unspecified
CPT/HCPCS: 36415; 80053; 82306; 84443; 85025

== ENCOUNTER → 2023-02-18 | Outpatient (CLI) | payer MEDICARE, OTHER, SELFPAY ==
[2023-02-18 11:09] LABS: Absolute Lymphocyte Count 1.11 X10^3/uL (0.83-4.51); Absolute Neutrophil Count 2.6 X10^3/uL (2.0-7.7); Basophil# 0.03 X10^3/uL; Basophil% 0.7 % (0-1); Eosinophil# 0.16 X10^3/uL; Eosinophils% 3.8 % (0-5); Hematocrit 36.9 % (37-47); Hemoglobin 11.6 g/dL (12.0-15.0); Lymphocyte # 1.11 X10^3/ul (0.83-4.51); Lymphocyte % 26.2 % (19-41); Mean Corp Hgb Conc 31.4 g/dL (32-36); Mean Corpuscular Hgb 30.7 pg (27.0-32.0); Mean Corpuscular Volume 97.6 fL (81-99); Monocyte# 0.34 X10^3/uL; NRBC Flagged by Analyzer 0 % (0-5); Neutrophil # 2.58 X10^3/uL (2.7-7.7); Neutrophil % 61.1 % (47-70); Platelet Count 227 K/mm3 (150-450); RBC Distribution Width CV 13.3 % (11.6-14.6); RBC Distribution Width SD 47.8 fl (35.1-43.9); Red Blood Count 3.78 M/mm3 (4.2-5.4); White Blood Count 4.2 K/mm3 (4.4-11.0)
[2023-02-18 11:16] LABS: Vitamin D,25 Hydroxy 66.1 ng/mL
[2023-02-18 11:24] LABS: ALB/GLOB Ratio 1.1 RATIO (0.9-2.4); AST(SGOT) 16 U/L (15-37); Alanine Aminotransfer ALT/SGPT 25 U/L (13-56); Albumin, Serum 3.7 g/dL (3.2-5.0); Alkaline Phosphatase 73 U/L (45-117); Anion Gap 7 (5-15); BUN 18 mg/dL (7-18); BUN/Creat Ratio 17.3 RATIO (10-20); Calcium,Total 9.4 mg/dL (8.5-10.1); Chloride 106 mmol/L (98-107); Creatinine, Serum 1.04 mg/dL (0.55-1.02); EST Glomerular Filtration Rate 54 mL/min (>60); Est Glom Filt Rate - Afr Amer 65 mL/min (>60); Globulin 3.4 g/dL (2.2-4.2); Glucose 139 mg/dL (74-106); Potassium 4.3 mmol/L (3.5-5.1); Protein, Total 7.1 g/dL (6.4-8.2); Sodium Level 139 mmol/L (136-145); Thyroid Stim Hormone (TSH) 7.93 uIU/mL (0.358-3.74)
== END | disposition home or self-care (01) ==
LOC: POLAB3 10:03
PROVIDERS: PCP Family Medicine Geriatric Medicine; Visit Provider Family Medicine Geriatric Medicine
DX: I10 Essential (primary) hypertension (principal); E11.65 Type 2 diabetes mellitus with hyperglycemia; E55.9 Vitamin D deficiency, unspecified
CPT/HCPCS: 36415; 80053; 82306; 84443; 85025

== ENCOUNTER → 2023-06-29 | Outpatient (CLI) | payer MEDICARE, OTHER, SELFPAY ==
--- NOTE | 2023-06-29 13:48 | RAD_ITS ---
EXAM: XR RIGHT HIP WITH PELVIS WHEN PERFORMED, 2 OR 3 VIEWS CLINICAL INDICATION: right hip pain TECHNIQUE: Two or three views of the right hip with pelvis when performed. COMPARISON: No relevant prior studies available. FINDINGS: BONES/JOINTS: Unremarkable. No displaced fracture. No destructive or sclerotic lesions. Note that overlapping bowel shadows may however obscure fine detail. Sacroiliac joint is unremarkable. No widening of the pubic symphysis. The articular structures are unremarkable. SOFT TISSUES: Unremarkable. No soft tissue swelling or gas. RAD/HIP, UNI W/ Pelvis 2-3 Views IMPRESSION: No evidence of displaced pelvic or hip fracture. Electronically Signed: Edgard Mendenhall MD at 23:59 EDT ,
== END | disposition home or self-care (01) ==
PROVIDERS: PCP Family Medicine Geriatric Medicine; Referring Provider Psychiatry & Neurology Neurology; Visit Provider Psychiatry & Neurology Neurology
DX: M25.551 Pain in right hip (principal)
CPT/HCPCS: 73502

== ENCOUNTER → 2023-08-20 | Outpatient (CLI) | payer MEDICARE, OTHER, SELFPAY ==
[2023-08-20 11:13] LABS: Absolute Lymphocyte Count 1.05 X10^3/uL (0.83-4.51); Absolute Neutrophil Count 2.6 X10^3/uL (2.0-7.7); Basophil# 0.02 X10^3/uL; Basophil% 0.5 % (0-1); Eosinophil# 0.21 X10^3/uL; Hematocrit 34.2 % (37-47); Hemoglobin 10.8 g/dL (12.0-15.0); Lymphocyte # 1.05 X10^3/ul (0.83-4.51); Lymphocyte % 25.1 % (19-41); Mean Corp Hgb Conc 31.6 g/dL (32-36); Mean Corpuscular Hgb 30.1 pg (27.0-32.0); Mean Corpuscular Volume 95.3 fL (81-99); Mean Platelet Vol. 9.7 fl (6.2-12.0); Monocyte# 0.31 X10^3/uL; Monocyte% 7.4 % (0-10); NRBC Flagged by Analyzer 0 % (0-5); Neutrophil # 2.59 X10^3/uL (2.7-7.7); Neutrophil % 61.8 % (47-70); Platelet Count 200 K/mm3 (150-450); RBC Distribution Width CV 13.4 % (11.6-14.6); RBC Distribution Width SD 46.6 fl (35.1-43.9); Red Blood Count 3.59 M/mm3 (4.2-5.4); White Blood Count 4.2 K/mm3 (4.4-11.0)
[2023-08-20 11:54] LABS: ALB/GLOB Ratio 1.2 RATIO (0.9-2.4); AST(SGOT) 18 U/L (15-37); Alanine Aminotransfer ALT/SGPT 23 U/L (13-56); Albumin, Serum 3.8 g/dL (3.2-5.0); Alkaline Phosphatase 69 U/L (45-117); Anion Gap 3 (5-15); BUN 17 mg/dL (7-18); BUN/Creat Ratio 19.9 RATIO (10-20); Calcium,Total 9.6 mg/dL (8.5-10.1); Chloride 107 mmol/L (98-107); Cholesterol 154 mg/dL (200); Creatinine, Serum 0.85 mg/dL (0.55-1.02); EST Glomerular Filtration Rate 67 mL/min (>60); Est Glom Filt Rate - Afr Amer 81 mL/min (>60); Globulin 3.3 g/dL (2.2-4.2); Glucose 133 mg/dL (74-106); High Density Lipoprotein 72 mg/dL; Potassium 4.2 mmol/L (3.5-5.1); Protein, Total 7.1 g/dL (6.4-8.2); Sodium Level 139 mmol/L (136-145); Thyroid Stim Hormone (TSH) 0.66 uIU/mL (0.358-3.74); Triglycerides 102 mg/dL; Very Low Density Lipoprotein 20 mg/dL (5-40)
[2023-08-20 18:04] LABS: Vitamin D,25 Hydroxy 67.9 ng/mL
== END | disposition home or self-care (01) ==
LOC: LAB 10:39
PROVIDERS: PCP Family Medicine Geriatric Medicine; Referring Provider Family Medicine Geriatric Medicine; Visit Provider Family Medicine Geriatric Medicine
DX: E11.65 Type 2 diabetes mellitus with hyperglycemia (principal); I10 Essential (primary) hypertension; E55.9 Vitamin D deficiency, unspecified; E78.5 Hyperlipidemia, unspecified
CPT/HCPCS: 36415; 80053; 80061; 82306; 84443; 85025

== ENCOUNTER → 2023-08-25 | Outpatient (CLI) | payer MEDICARE, OTHER, SELFPAY ==
[2023-08-25 17:09] LABS: Absolute Lymphocyte Count 1.15 X10^3/uL (0.83-4.51); Absolute Neutrophil Count 2.4 X10^3/uL (2.0-7.7); Basophil# 0.03 X10^3/uL; Basophil% 0.7 % (0-1); Eosinophil# 0.22 X10^3/uL; Eosinophils% 5.3 % (0-5); Hematocrit 35.1 % (37-47); Hemoglobin 11.2 g/dL (12.0-15.0); Lymphocyte # 1.15 X10^3/ul (0.83-4.51); Lymphocyte % 27.6 % (19-41); Mean Corp Hgb Conc 31.9 g/dL (32-36); Mean Corpuscular Hgb 30.3 pg (27.0-32.0); Mean Corpuscular Volume 94.9 fL (81-99); Mean Platelet Vol. 9.6 fl (6.2-12.0); Monocyte# 0.31 X10^3/uL; Monocyte% 7.4 % (0-10); NRBC Flagged by Analyzer 0 % (0-5); Neutrophil # 2.44 X10^3/uL (2.7-7.7); Neutrophil % 58.5 % (47-70); Platelet Count 201 K/mm3 (150-450); RBC Distribution Width CV 13.4 % (11.6-14.6); RBC Distribution Width SD 46.5 fl (35.1-43.9); RET-HE 32.9 pg (30-35); Reticulocyte Count 1.49 % (0.5-1.5); White Blood Count 4.2 K/mm3 (4.4-11.0)
[2023-08-25 17:53] LABS: Vitamin B12 249 pg/mL (211-911)
[2023-08-25 18:01] LABS: Ferritin 95 ng/mL (8-252); Iron 76 ug/dL (50-170); Iron Binding Capacity,Total 343 ug/dL (250-450); PERCENT IRON SATURATION 22.2 % (15.0-55.0)
== END | disposition home or self-care (01) ==
LOC: LAB 16:19
PROVIDERS: PCP Family Medicine Geriatric Medicine; Referring Provider Family Medicine Geriatric Medicine; Visit Provider Family Medicine Geriatric Medicine
DX: D50.9 Iron deficiency anemia, unspecified (principal)
CPT/HCPCS: 36415; 82607; 82728; 82746; 83540; 83550; 85025; 85045

== ENCOUNTER → 2023-08-26 | Outpatient (CLI) | payer MEDICARE, OTHER, SELFPAY | END | disposition home or self-care (01) | LOC: LAB 16:00 | PROVIDERS: PCP Family Medicine Geriatric Medicine; Referring Provider Family Medicine Geriatric Medicine; Visit Provider Family Medicine Geriatric Medicine | DX: D50.9 Iron deficiency anemia, unspecified (principal) | CPT/HCPCS: 82274 ==

== ENCOUNTER → 2023-09-22 | Outpatient (CLI) | payer MEDICARE, OTHER, SELFPAY ==
[2023-09-22 10:03] LABS: Absolute Lymphocyte Count 1.04 X10^3/uL (0.83-4.51); Absolute Neutrophil Count 2.2 X10^3/uL (2.0-7.7); Basophil# 0.02 X10^3/uL; Basophil% 0.5 % (0-1); Eosinophil# 0.15 X10^3/uL; Eosinophils% 3.9 % (0-5); Hematocrit 32.7 % (37-47); Hemoglobin 10.2 g/dL (12.0-15.0); Lymphocyte # 1.04 X10^3/ul (0.83-4.51); Lymphocyte % 26.8 % (19-41); Mean Corp Hgb Conc 31.2 g/dL (32-36); Mean Corpuscular Hgb 30.1 pg (27.0-32.0); Mean Corpuscular Volume 96.5 fL (81-99); Mean Platelet Vol. 9.9 fl (6.2-12.0); Monocyte# 0.42 X10^3/uL; Monocyte% 10.8 % (0-10); NRBC Flagged by Analyzer 0 % (0-5); Neutrophil # 2.23 X10^3/uL (2.7-7.7); Neutrophil % 57.5 % (47-70); Platelet Count 174 K/mm3 (150-450); RBC Distribution Width CV 13.8 % (11.6-14.6); RBC Distribution Width SD 48.7 fl (35.1-43.9); Red Blood Count 3.39 M/mm3 (4.2-5.4); White Blood Count 3.9 K/mm3 (4.4-11.0)
== END | disposition home or self-care (01) ==
LOC: LAB 09:25
PROVIDERS: PCP Family Medicine Geriatric Medicine; Referring Provider Family Medicine Geriatric Medicine; Visit Provider Family Medicine Geriatric Medicine
DX: D64.9 Anemia, unspecified (principal)
CPT/HCPCS: 36415; 85025

== ENCOUNTER 2023-10-28 10:52 | Emergency (ER) | payer MEDICARE, OTHER, SELFPAY ==
[2023-10-28 10:52] VITALS: BP 158/63; PULSE 81; RESP 14; TEMP 36.2; O2SAT 99; BMI 26.0
--- NOTE | 2023-10-28 11:24 | EX.ED.DYSGE1 ---
HPI History of Present Illness Chief Complaint: Lower Extremity Injury [facility] Medical History PAOD (peripheral arterial occlusive disease) Macular degeneration Iron deficiency anemia History of stroke Lower extremity neuropathy Carpal tunnel syndrome of left wrist Chronic anemia Polyneuropathy Essential (primary) hypertension CVA (cerebral vascular accident) Hyperlipemia Palpitations Edema Patent foramen ovale Debility Hypothyroidism DM type 2 (diabetes mellitus, type 2) Hypertensive urgency (02/05/20) Left arm weakness Paresthesias Home Medications ?Medication ?Instructions ?Recorded ?Last Taken ?Type amlodipine 5 mg tablet 5 mg PO DAILY blood perssure 02/05/20 02/05/20 06:00 History gabapentin 300 mg capsule 300 mg PO QHS neuropathy 02/05/20 Unknown History meloxicam 15 mg tablet 15 mg PO DAILY 02/05/20 02/05/20 06:00 History clopidogrel 75 mg tablet 75 mg PO DAILY #90 tabs 02/06/20 Unknown Rx Left wrist splint #1 ea 02/16/20 Unknown Rx latanoprost 0.005 % eye drops 1 drp ophthalmic (eye) DAILY 09/24/23 Unknown History rosuvastatin 40 mg tablet 40 mg PO DAILY 09/24/23 Unknown History timolol 0.5 % eye drops 1 drp ophthalmic (eye) DAILY 09/24/23 Unknown History levothyroxine 88 mcg tablet 88 mcg PO DAILY thyroid 09/30/23 Unknown History metformin 500 mg tablet 500 mg PO DAILY diabetes 09/30/23 Unknown History omeprazole 20 mg capsule,delayed 20 mg PO DAILY PRN 09/30/23 Unknown History release oxycodone 5 mg capsule 5 mg PO Q6H PRN pain 3 days #12 10/28/23 Unknown Rx caps Allergy/AdvReac Type Severity Reaction Status Date / Time levomefolate calcium (From Allergy Unknown Unknown Verified 10/28/23 10:53 Metanx) mecobalamin (From Metanx) Allergy Unknown Unknown Verified 10/28/23 10:53 pyridoxal phosphate (From Allergy Unknown Unknown Verified 10/28/23 10:53 Metanx) Penicillins Allergy Pain in Verified 10/28/23 10:53 joints Sulfa (Sulfonamide Allergy Hives Verified 10/28/23 10:53 Antibiotics) Family History Mother Hypertension Father Emphysema/COPD Surgical History H/O section H/O tooth extraction Cataract H/O tubal ligation History of dilatation and curettage Social History Smoking Status: Never smoker second hand exposure: No alcohol intake: current alcohol intake frequency: holidays/special occasions only substance use type: does not use EXAM Physical Exam Const Vital Signs: 10/28/23 10:52 10/28/23 13:24 Temperature 97.2 F L 97.8 F Temperature Source Temporal Pulse Rate 81 84 Respiratory Rate 14 18 Blood Pressure 158/63 H 144/78 H Blood Pressure Mean 94 100 Pulse Ox 99 99 Oxygen Delivery Method Room Air MDM [facility] MDM Narrative Medical decision making narrative: HISTORY OF PRESENT ILLNESS: 88-year-old female presents with left heel pain for several days. Patient notes she had left heel pain with no inciting trauma. Notes history of gout. Denies any falls or trauma. Denies any fever or chills. Denies any joint swelling. REVIEW OF SYSTEMS: Pertinent positives: Left heel pain Pertinent negatives: Loss of sensation, coolness to touch of the extremity, fever, vomiting PHYSICAL EXAM: Nursing triage notes reviewed, Vital signs reviewed Constitutional: please see mdm Lungs: Clear to auscultation, No wheezing or rales. No increased work of breathing, no conversational dyspnea, no accessory muscle use, no nasal flaring. No respiratory distress noted Heart: Regular rate and rhythm, No murmurs, No rubs and No gallops, 2+ distal pulses (radial, femoral, posterior tibial) in all extremities Abdomen: Soft, there is no tenderness, rigidity, rebound or guarding, no obvious peritoneal signs, no palpable pulsatile abdominal masses, no auscultated abdominal bruit Extremities: No edema, left ankle without TTP, no tenderness without reports to exam, no obvious deformities. Neuro: Intact sensation L1-S1 dermatomal distributions. Intact 5/5 strength in hip flexion (T12-L3). Knee extension (L2-L4). Ankle dorsiflexion (L4-L5). Ankle plantar flexion (S1). Great toe extension (L5). 2+ patellar and Achilles DTRs. Skin: No rash or lesions noted Skin: No obvious erythema, fluctuance induration crepitus or bullae MEDICAL DECISION MAKING: Chief Complaint: Left heel pain External records reviewed: No recent adVanced imaging of the involved extremity Factors affecting care: Peripheral artery disease, anemia, hypertension, hyperlipidemia, CVA Social determinants of health: elderly History obtained from others: none Consults: none MDM Narrative: Patient was hemodynamically stable, afebrile, nontoxic-appearing. Exam without evidence of arterial occlusion, no calf tenderness. No obvious overlying erythema, fluctuance induration crepitus or bullae. No clinical exam evidence of septic arthritis. I considered the following differential diagnosis: Fracture, dislocation, arthritic changes, heel spur, acute limb ischemia, septic arthritis ALL IMAGES (IF OBTAINED) HAVE BEEN PERSONALLY REVIEWED AND INTERPRETED BY MYSELF. X-ray of the left heel was read reviewed myself shows no evidence of obvious fracture dislocation. Radiologist agrees my interpretation I suspect the patient suffered from a gouty flare given history of gout. Will give anti-inflammatory and narcotic pain medication. Discussed risk and benefits of narcotic pain medication including side effects including addiction potential, sedative potential, respiratory depression potential. Patient understand risk and benefits and promised to use medicine occasion judiciously. Discussed risk and benefits of steroids given history of diabetes and concern for recent hyperglycemia. We decided jointly to forego steroids at this time. Patient is appropriate discharge home The patient and/or family, caregivers express understanding. The patient and/or family, caregivers agrees with the plan. Shared decision making: I will have a discussion with the patient and or visitors regarding risk/benefits of further testing or admission. They will be made aware of of the risk/benefits inherent in this decision they will be given the opportunity to voice understanding. Total critical care time today provided was at least 0 minutes. This excludes separately billable procedures. Critical care time (if documented) is secondary to the patient having high probability of clinically significant/life threatening deterioration in the patient's condition which required my urgent intervention. Impression: 1. Left heel pain 2. Gouty flare Dispo: Discharge home This note was generated with [employer]ox[employer] dictation software. It may contain incorrect words, spelling, and punctuation that were not noted in review of the chart prior to signing. Radiography Diagnostic Testing: Clinical Impression(s) from Imaging Studies Foot X-Ray 10/28/23 11:35 IMPRESSION: Small calcaneal spurs. Demineralization of the visualized bony structures. No acute abnormality is seen. Electronically Signed: Gerard Kelley MD at 12:06 EDT , Discharge Plan Triage Chief Complaint: Lower Extremity Injury ED Provider: Sushil Little Dx/Rx/DC Orders Instructions: ED Gout Prescriptions: New oxycodone 5 mg capsule 5 mg PO Q6H PRN (Reason: pain) 3 Days Qty: 12 0RF No Action (DME) Left wrist splint See Rx Instructions .Route .MEDSUPPLY Qty: 1 0RF Rx Instructions: wear left wrist splint nightly during sleep omeprazole 20 mg capsule,delayed release(DR/EC) 20 mg PO DAILY PRN rosuvastatin 40 mg tablet 40 mg PO DAILY latanoprost 0.005 % drops 1 drp ophthalmic (eye) DAILY timolol 0.5 % drops 1 drp ophthalmic (eye) DAILY meloxicam 15 MG tablet 15 mg PO DAILY amlodipine 5 MG tablet 5 mg PO DAILY gabapentin 300 MG capsule 300 mg PO QHS clopidogrel 75 MG tablet 75 mg PO DAILY Qty: 90 0RF levothyroxine 88 mcg tablet 88 mcg PO DAILY metformin 500 mg tablet 500 mg PO DAILY Primary Care Provider: Ap Morelos Chi Referrals: Ap Morelos Chi, MD [Primary Care Provider] - Activity Restrictions/Additional Instructions: Thank you for trusting us with your care today! Please take Tylenol (2 pills, 650 mg), every 6 hours as needed for pain and fever control. Please continue taking meloxicam as prescribed. Please take oxycodone for breakthrough pain. Please return to the emergency department if your symptoms change or worsen. Please follow with your primary care physician for further outpatient evaluation and management. Print Language: Lithuanian Disposition Disposition: Home, Self Care Discharge Date/Time: 10/28/23 13:38
--- NOTE | 2023-10-28 11:35 | RAD_ITS ---
STUDY: X-RAY - LEFT FOOT CLINICAL: Female, 88 years old. Heel pain TECHNIQUE: 3 view(s) of the foot. COMPARISON: None. FINDINGS: Tiny calcaneal spurs Normal visualized subtalar, talonavicular, calcaneocuboid, tarsal and tarsometatarsal articulations. There is demineralization of the metatarsi. There is degenerative arthrosis of the metatarsophalangeal joint of the hallux . Normal tibial and fibular sesamoid bones. Normal interphalangeal joint of the great toe. Normal phalanges of the great toe. Normal second through fifth metatarsophalangeal joints. Normal interphalangeal joints and phalanges of the lesser toes. The soft tissue structures are unremarkable. RAD/Foot min 3 Views IMPRESSION: Small calcaneal spurs. Demineralization of the visualized bony structures. No acute abnormality is seen. Electronically Signed: Gerard Kelley MD at 12:06 EDT ,
[2023-10-28 13:24] VITALS: BP 144/78; PULSE 84; RESP 18; TEMP 36.6; O2SAT 99
[2023-10-28] MEDS: Ibuprofen 200 MG Tablet 400 MG PO (13:37)
== END 2023-10-28 13:38 | disposition home or self-care (01) ==
PROVIDERS: Emergency Provider Emergency Medicine; PCP Family Medicine Geriatric Medicine; Visit Provider Emergency Medicine
DX: M10.9 Gout, unspecified (principal); E11.42 Type 2 diabetes mellitus with diabetic polyneuropathy; M79.672 Pain in left foot; E78.5 Hyperlipidemia, unspecified; D64.9 Anemia, unspecified; I10 Essential (primary) hypertension; Z86.73 Personal history of transient ischemic attack (TIA), and cerebral infarction without residual deficits; I73.9 Peripheral vascular disease, unspecified
CPT/HCPCS: 73630; 99282

== ENCOUNTER → 2024-01-20 | Outpatient (CLI) | payer MEDICARE, OTHER, SELFPAY ==
[2024-01-20 10:45] LABS: Absolute Lymphocyte Count 0.86 X10^3/uL (0.83-4.51); Absolute Neutrophil Count 2.7 X10^3/uL (2.0-7.7); Basophil# 0.02 X10^3/uL; Basophil% 0.5 % (0-1); Eosinophil# 0.12 X10^3/uL; Hematocrit 34.8 % (37-47); Hemoglobin 11.2 g/dL (12.0-15.0); Lymphocyte # 0.86 X10^3/ul (0.83-4.51); Lymphocyte % 21.2 % (19-41); Mean Corp Hgb Conc 32.2 g/dL (32-36); Mean Corpuscular Hgb 31.2 pg (27.0-32.0); Mean Corpuscular Volume 96.9 fL (81-99); Mean Platelet Vol. 9.5 fl (6.2-12.0); Monocyte# 0.32 X10^3/uL; Monocyte% 7.9 % (0-10); NRBC Flagged by Analyzer 0 % (0-5); Neutrophil # 2.73 X10^3/uL (2.7-7.7); Neutrophil % 67.2 % (47-70); Platelet Count 215 K/mm3 (150-450); RBC Distribution Width CV 13.5 % (11.6-14.6); RBC Distribution Width SD 48.2 fl (35.1-43.9); RET-HE 32.8 pg (30-35); Red Blood Count 3.59 M/mm3 (4.2-5.4); White Blood Count 4.1 K/mm3 (4.4-11.0)
[2024-01-20 10:57] LABS: Erythrocyte Sedimentation Rate 14 mm/hr (0-30)
[2024-01-20 11:35] LABS: ALB/GLOB Ratio 1.1 RATIO (0.9-2.4); AST(SGOT) 16 U/L (15-37); Alanine Aminotransfer ALT/SGPT 17 U/L (13-56); Albumin, Serum 3.8 g/dL (3.2-5.0); Alkaline Phosphatase 72 U/L (45-117); Anion Gap 6 (5-15); BUN 19 mg/dL (7-18); CRP < 2.90 mg/L (0.0-3.0); Calcium,Total 10.4 mg/dL (8.5-10.1); Chloride 107 mmol/L (98-107); EST Glomerular Filtration Rate 63 mL/min (>60); Est Glom Filt Rate - Afr Amer 76 mL/min (>60); Ferritin 120 ng/mL (8-252); Globulin 3.6 g/dL (2.2-4.2); Glucose 128 mg/dL (74-106); Iron 62 ug/dL (50-170); Iron Binding Capacity,Total 333 ug/dL (250-450); PERCENT IRON SATURATION 18.6 % (15.0-55.0); Potassium 4.2 mmol/L (3.5-5.1); Protein, Total 7.4 g/dL (6.4-8.2); Sodium Level 140 mmol/L (136-145)
== END | disposition home or self-care (01) ==
LOC: LAB 10:06
PROVIDERS: PCP Family Medicine Geriatric Medicine; Referring Provider Internal Medicine Medical Oncology; Visit Provider Internal Medicine Medical Oncology
DX: D64.9 Anemia, unspecified (principal)
CPT/HCPCS: 36415; 80053; 82607; 82728; 82746; 83540; 83550; 85025; 85045; 85652; 86140

== ENCOUNTER → 2024-02-23 | Outpatient (CLI) | payer MEDICARE, OTHER, SELFPAY ==
[2024-02-23 10:43] LABS: Absolute Lymphocyte Count 1.47 X10^3/uL (0.83-4.51); Absolute Neutrophil Count 3.2 X10^3/uL (2.0-7.7); Basophil# 0.03 X10^3/uL; Basophil% 0.6 % (0-1); Eosinophil# 0.15 X10^3/uL; Eosinophils% 2.9 % (0-5); Hematocrit 36.4 % (37-47); Hemoglobin 11.7 g/dL (12.0-15.0); Lymphocyte # 1.47 X10^3/ul (0.83-4.51); Lymphocyte % 28.1 % (19-41); Mean Corp Hgb Conc 32.1 g/dL (32-36); Mean Corpuscular Hgb 31.1 pg (27.0-32.0); Mean Corpuscular Volume 96.8 fL (81-99); Mean Platelet Vol. 9.7 fl (6.2-12.0); Monocyte% 7.6 % (0-10); NRBC Flagged by Analyzer 0 % (0-5); Neutrophil # 3.16 X10^3/uL (2.7-7.7); Neutrophil % 60.4 % (47-70); Platelet Count 219 K/mm3 (150-450); RBC Distribution Width CV 13.4 % (11.6-14.6); RBC Distribution Width SD 47.8 fl (35.1-43.9); Red Blood Count 3.76 M/mm3 (4.2-5.4); White Blood Count 5.2 K/mm3 (4.4-11.0)
[2024-02-23 11:17] LABS: Vitamin D,25 Hydroxy 42.5 ng/mL
[2024-02-23 11:25] LABS: ALB/GLOB Ratio 1.1 RATIO (0.9-2.4); AST(SGOT) 13 U/L (15-37); Alanine Aminotransfer ALT/SGPT 21 U/L (13-56); Albumin, Serum 4.1 g/dL (3.2-5.0); Alkaline Phosphatase 70 U/L (45-117); Anion Gap 4 (5-15); BUN 22 mg/dL (7-18); BUN/Creat Ratio 20.4 RATIO (10-20); Calcium,Total 9.9 mg/dL (8.5-10.1); Chloride 104 mmol/L (98-107); Creatinine, Serum 1.08 mg/dL (0.55-1.02); EST Glomerular Filtration Rate 51 mL/min (>60); Est Glom Filt Rate - Afr Amer 62 mL/min (>60); Globulin 3.6 g/dL (2.2-4.2); Glucose 138 mg/dL (74-106); Potassium 4.3 mmol/L (3.5-5.1); Protein, Total 7.7 g/dL (6.4-8.2); Sodium Level 137 mmol/L (136-145)
== END | disposition home or self-care (01) ==
LOC: POLAB3 10:32
PROVIDERS: PCP Family Medicine Geriatric Medicine; Visit Provider Family Medicine Geriatric Medicine
DX: I10 Essential (primary) hypertension (principal); E11.65 Type 2 diabetes mellitus with hyperglycemia; E55.9 Vitamin D deficiency, unspecified
CPT/HCPCS: 36415; 80053; 82306; 84443; 85025

== ENCOUNTER → 2024-08-22 | Outpatient (CLI) | payer MEDICARE, OTHER, SELFPAY ==
[2024-08-22 11:10] LABS: Absolute Lymphocyte Count 0.96 X10^3/uL (0.83-4.51); Absolute Neutrophil Count 2.2 X10^3/uL (2.0-7.7); Basophil# 0.02 X10^3/uL; Basophil% 0.6 % (0-1); Eosinophil# 0.13 X10^3/uL; Eosinophils% 3.7 % (0-5); Hematocrit 33.6 % (37-47); Lymphocyte # 0.96 X10^3/ul (0.83-4.51); Lymphocyte % 27.1 % (19-41); Mean Corp Hgb Conc 32.7 g/dL (32-36); Mean Corpuscular Hgb 31.9 pg (27.0-32.0); Mean Corpuscular Volume 97.4 fL (81-99); Mean Platelet Vol. 8.9 fl (6.2-12.0); Monocyte# 0.26 X10^3/uL; Monocyte% 7.3 % (0-10); NRBC Flagged by Analyzer 0 % (0-5); Neutrophil # 2.16 X10^3/uL (2.7-7.7); Platelet Count 184 K/mm3 (150-450); RBC Distribution Width CV 13.3 % (11.6-14.6); RBC Distribution Width SD 47.3 fl (35.1-43.9); Red Blood Count 3.45 M/mm3 (4.2-5.4); White Blood Count 3.5 K/mm3 (4.4-11.0)
[2024-08-22 12:15] LABS: ALB/GLOB Ratio 1.5 RATIO (0.9-2.4); AST(SGOT) 20 U/L (<=31); Alanine Aminotransfer ALT/SGPT 16 U/L (<=34); Albumin, Serum 4.4 g/dL (3.4-4.8); Alkaline Phosphatase 63 U/L (35-104); Anion Gap 13 (5-15); BUN 16 mg/dL (4-19); BUN/Creat Ratio 16.7 RATIO (10-20); Calcium,Total 10.1 mg/dL (7.6-11.0); Carbon Dioxide 24.3 mmol/L (21.0-32.0); Chloride 103 mmol/L (98-108); Creatinine, Serum 0.98 mg/dL (0.70-1.20); EST Glomerular Filtration Rate 56 (>60); Globulin 2.9 g/dL (2.2-4.2); Glucose 123 mg/dL (70-99); Potassium 4.2 mmol/L (3.3-5.1); Protein, Total 7.4 g/dL (5.9-8.4); Sodium Level 140 mmol/L (133-145); Total Bilirubin 0.38 mg/dL (0.00-1.30)
[2024-08-22 12:26] LABS: Vitamin D,25 Hydroxy 49.7 ng/mL (30-100)
== END | disposition home or self-care (01) ==
LOC: LAB 10:51
PROVIDERS: PCP Family Medicine Geriatric Medicine; Referring Provider Family Medicine Geriatric Medicine; Visit Provider Family Medicine Geriatric Medicine
DX: E03.9 Hypothyroidism, unspecified (principal); E11.65 Type 2 diabetes mellitus with hyperglycemia; I10 Essential (primary) hypertension; E55.9 Vitamin D deficiency, unspecified
CPT/HCPCS: 36415; 80053; 82306; 84443; 85025

== ENCOUNTER 2024-12-20 09:07 | Emergency (ER) | payer MEDICARE, OTHER, SELFPAY ==
[2024-12-20 09:08] VITALS: BP 155/90; PULSE 74; RESP 18; TEMP 37.1; O2SAT 100
[2024-12-20 09:10] VITALS: BMI 26.8
--- NOTE | 2024-12-20 09:31 | VDLE_ITS ---
Reason For Study Reason For Study: RLE Pain RIGHT LEFT GSV is normal. CFV is compressible, spontaneous, phasic, competent, CFV is compressible, phasic, and INCOMPETENT for and demonstrates normal augmentation. greater than 1.0 second. FV is compressible, spontaneous, phasic, competent and demonstrates normal augmentation. POP V is compressible, spontaneous, phasic, competent and demonstrates normal augmentation. T/P Trunk is compressible. PTV is compressible. RT PerV is compressible. Multiple compressible varicose veins noted throughout RLE. Nonvascularized anechoic area noted in Rt Pop Fossa measuring approximately 3.25cm x 1.26cm. Procedure This is a venous duplex using B-mode, color flow and spectral Doppler. Exam performed portable in ED. The exam was diagnostic. A preliminary report was called and/or faxed to ED enrollment management coordinator. VL/Venous Duplex US, Unilateral Interpretation Summary Deep veins of the right lower extremity are patent and compressible segmentally . There is no evidence of right lower extremity deep vein thrombosis. The right common femoral vein is incompetent. T he right great saphenous vein appears patent and compressible segmentally. Multiple compressible varicose veins are n oted throughout the right lower extremity. A non-vascular, anechoic structure is noted in the right popliteal s pace, measuring 3.25 cm x 1.26 cm. This probably represents a popliteal cyst. Clinical correlation is advised. The left common femoral vein is patent and compressible. Ordering Physician: Neyda Killian Referring Physician: Ap Morelos Chi Performed By: Royal Gamble RVT
--- NOTE | 2024-12-20 09:32 | ED.VIS.LOWEX ---
HPI History of Present Illness Chief Complaint: Lower Extremity Injury Informant: patient and family Narrative Narrative: Patient is a 89 year old female with history of stroke, polyneuropathy, peripheral arterial disease, varicose veins of the lower extremities and chronically on Plavix presenting with bruising and discomfort to her right lower extremity. She noticed other symptoms today when she looked at her legs but does admit that she does not regularly look at her legs. She does recall hitting her leg with a mop a week or 2 ago but is not sure when his bruising actually developed. Pain is worse behind her right knee. She did notice some tingling down to her right foot today. She came in because she is concerned about a DVT. She denies any history of DVT. Denies any significant pain at this time. Denies any acute numbness. Denies any shortness of breath or difficulty breathing. Denies any chest pain. Denies any recent falls or other trauma. Came in for further evaluation with family [facility] Medical History PAOD (peripheral arterial occlusive disease) Macular degeneration Iron deficiency anemia History of stroke Lower extremity neuropathy Carpal tunnel syndrome of left wrist Chronic anemia Polyneuropathy Essential (primary) hypertension CVA (cerebral vascular accident) Hyperlipemia Palpitations Edema Patent foramen ovale Debility Hypothyroidism DM type 2 (diabetes mellitus, type 2) Hypertensive urgency (02/05/20) Left arm weakness Paresthesias Home Medications ?Medication ?Instructions ?Recorded ?Last Taken ?Type amlodipine 5 mg tablet 5 mg PO DAILY blood perssure 02/05/20 02/05/20 06:00 History gabapentin 300 mg capsule 300 mg PO QHS neuropathy 02/05/20 Unknown History meloxicam 15 mg tablet 15 mg PO DAILY 02/05/20 02/05/20 06:00 History clopidogrel 75 mg tablet 75 mg PO DAILY #90 tabs 02/06/20 Unknown Rx Left wrist splint #1 ea 02/16/20 Unknown Rx latanoprost 0.005 % eye drops 1 drp ophthalmic (eye) DAILY 09/24/23 Unknown History rosuvastatin 40 mg tablet 40 mg PO DAILY 09/24/23 Unknown History timolol 0.5 % eye drops 1 drp ophthalmic (eye) DAILY 09/24/23 Unknown History levothyroxine 88 mcg tablet 88 mcg PO DAILY thyroid 09/30/23 Unknown History metformin 500 mg tablet 500 mg PO DAILY diabetes 09/30/23 Unknown History omeprazole 20 mg capsule,delayed 20 mg PO DAILY PRN reflux 09/30/23 Unknown History release Allergy/AdvReac Type Severity Reaction Status Date / Time levomefolate calcium (From Allergy Unknown Unknown Verified 12/20/24 09:08 Metanx) mecobalamin (From Metanx) Allergy Unknown Unknown Verified 12/20/24 09:08 pyridoxal phosphate (From Allergy Unknown Unknown Verified 12/20/24 09:08 Metanx) Penicillins Allergy Pain in Verified 12/20/24 09:08 joints Sulfa (Sulfonamide Allergy Hives Verified 12/20/24 09:08 Antibiotics) Family History Mother Hypertension Father Emphysema/COPD Surgical History H/O section H/O tooth extraction Cataract H/O tubal ligation History of dilatation and curettage Social History Smoking Status: Never smoker second hand exposure: No alcohol intake: current alcohol intake frequency: holidays/special occasions only substance use type: does not use ROS ROS ED Constitutional Constitutional ED: Denies chills or fever(s) Cardiovascular Cardiovascular: Denies chest pain Respiratory/Chest Respiratory/Chest: Denies dyspnea Musculoskeletal Musculoskeletal: Reports other Details: Right knee pain-posterior Integumentary Reports other Details: Bruising to the right lower extremity Neurologic Neurologic: Reports paresthesias RLE; Denies weakness Hematologic/Lymphatic Hematologic/Lymphatic: Reports easy bruising and other Details: on Plavix ; Denies easy bleeding EXAM Physical Exam Const Vital Signs: 12/20/24 09:08 12/20/24 10:29 Temperature 98.7 F 98 F Temperature Source Oral Pulse Rate 74 97 Respiratory Rate 18 16 Blood Pressure 155/90 H 145/59 H Blood Pressure Mean 111 87 Pulse Ox 100 97 Oxygen Delivery Method Room Air Positive well nourished and well developed General Appearance ED: well developed and NAD HEENT Reports moist mucous membranes Neck supple Resp normal respiratory effort and clear to auscultation bilaterally Cardio regular rate and regular rhythm Cardio Narrative: 2+ DP pulse present on the right Extremity full ROM Extremity Narrative: No joint effusion of the right knee present. No pain with range of motion of the hip or knee. There is ecchymosis tracking from the medial aspect of the mid thigh past the knee and most pronounced in the popliteal fossa. No significant hematoma present. Varicose veins throughout the lower extremities are present. No pedal edema present General Extremety ED: Negative for edema General Extremity: Negative for edema Neuro oriented x3 Sensorium / Orientation: alert Motor Exam: Negative for general weakness Psych mental status grossly normal Skin Skin Narrative: No abrasions or skin tears/bleeding present. Ecchymosis in various stages of healing of the right lower extremity?see extremity exam MDM MDM MDM Narrative Medical decision making narrative: Patient evaluated for bruising and discomfort to her right lower extremity. Differential includes contusion, DVT, superficial thrombophlebitis and Her's cyst. No significant trauma no bony tenderness to lower suspicion for patellar or tibial plateau fracture. Normal extensor mechanism. Low suspicion for quadricep tendon injury. I do not think x-ray imaging is indicated at this time. I do not appreciate any expanding hematoma or large fluid collection concerning for active bleeding. She is relatively asymptomatic systemically and I do not think we need to check CBC for her hemoglobin level. Venous duplex is negative for DVT but does show Her's cyst. Patient informed of findings. We treated conservatively for Her's cyst and given orthopedic information for follow-up. Counseled that bruising will need time to resolve on its own and might continue to shift down her leg with gravity throughout the day. Can take Tylenol as needed for pain. Given return precautions. Discharged home in stable condition Discharge Plan Triage Chief Complaint: Lower Extremity Injury ED Provider: Neyda Killian Dx/Rx/DC Orders Clinical Impression: Traumatic ecchymosis of right lower leg, Her cyst Instructions: ED Her's Cyst, ED Soft Tissue Contusion Prescriptions: No Action (DME) Left wrist splint See Rx Instructions .Route .MEDSUPPLY Qty: 1 0RF Rx Instructions: wear left wrist splint nightly during sleep omeprazole 20 mg capsule,delayed release(DR/EC) 20 mg PO DAILY PRN (Reason: reflux) rosuvastatin 40 mg tablet 40 mg PO DAILY latanoprost 0.005 % drops 1 drp ophthalmic (eye) DAILY timolol 0.5 % drops 1 drp ophthalmic (eye) DAILY meloxicam 15 MG tablet 15 mg PO DAILY amlodipine 5 MG tablet 5 mg PO DAILY gabapentin 300 MG capsule 300 mg PO QHS clopidogrel 75 MG tablet 75 mg PO DAILY Qty: 90 0RF levothyroxine 88 mcg tablet 88 mcg PO DAILY metformin 500 mg tablet 500 mg PO DAILY Primary Care Provider: Ap Morelos Chi Referrals: Will Faulkner MD [Med Staff - Active Staff] - Ap Morelos Chi, MD [Primary Care Provider] - Activity Restrictions/Additional Instructions: Your ultrasound did not show any blood clot/DVT in your leg. It did show a fluid collection behind your knee called a Her's cyst. You can either follow-up with orthopedics for further evaluation of this or with your primary care doctor. Generally they are just watched and monitored. The bruising should continue to heal on its own but might shift down your leg as it heals. If you develop new numbness, weakness or worsening bruising/pain please return the emergency room for repeat evaluation Print Language: Armenian Disposition Disposition: Home, Self Care Discharge Date/Time: 12/20/24 10:32
[2024-12-20 10:29] VITALS: BP 145/59; PULSE 97; RESP 16; TEMP 36.6; O2SAT 97
== END 2024-12-20 10:32 | disposition home or self-care (01) ==
PROVIDERS: Emergency Provider Emergency Medicine; PCP Family Medicine Geriatric Medicine; Visit Provider Emergency Medicine
DX: S89.91XA Unspecified injury of right lower leg, initial encounter (principal); E11.51 Type 2 diabetes mellitus with diabetic peripheral angiopathy without gangrene; E11.42 Type 2 diabetes mellitus with diabetic polyneuropathy; E78.5 Hyperlipidemia, unspecified; I10 Essential (primary) hypertension; Z98.51 Tubal ligation status; Z86.73 Personal history of transient ischemic attack (TIA), and cerebral infarction without residual deficits; E03.9 Hypothyroidism, unspecified; Q21.12 Patent foramen ovale; R23.3 Spontaneous ecchymoses; R20.2 Paresthesia of skin; M25.561 Pain in right knee; M71.21 Synovial cyst of popliteal space [Baker], right knee; W22.8XXA Striking against or struck by other objects, initial encounter; M79.604 Pain in right leg
CPT/HCPCS: 93971; 99282

== ENCOUNTER → 2025-02-23 | Outpatient (CLI) | payer MEDICARE, OTHER, SELFPAY ==
[2025-02-23 12:12] LABS: Hematocrit 30.8 % (37-47); Hemoglobin 9.9 g/dL (12.0-15.0); Immature Granulocytes Count 0.060 X10^3/uL (0.0-0.0); Mean Corp Hgb Conc 32.1 g/dL (32-36); Mean Corpuscular Volume 100.7 fL (81-99); Mean Platelet Vol. 9.6 fl (6.2-12.0); NRBC Flagged by Analyzer 0 % (0-5); Platelet Count 205 K/mm3 (150-450); RBC Distribution Width CV 13.6 % (11.6-14.6); RBC Distribution Width SD 50.0 fl (35.1-43.9); Red Blood Count 3.06 M/mm3 (4.2-5.4); White Blood Count 4.0 K/mm3 (4.4-11.0)
[2025-02-23 13:21] LABS: AST(SGOT) 20 U/L (<=31); Alanine Aminotransfer ALT/SGPT 16 U/L (<=34); Albumin, Serum 4.3 g/dL (3.4-4.8); Alkaline Phosphatase 61 U/L (35-104); Anion Gap 13 (5-15); BUN 19 mg/dL (4-19); BUN/Creat Ratio 18.9 RATIO (10-20); Calcium,Total 9.8 mg/dL (7.6-11.0); Carbon Dioxide 23.9 mmol/L (21.0-32.0); Chloride 103 mmol/L (98-108); Globulin 2.9 g/dL (2.2-4.2); Glucose 114 mg/dL (70-99); Potassium 4.9 mmol/L (3.3-5.1)
--- OUTSIDE RECORDS SUMMARY | 2025-02-23 18:15 | XMS RPT_ITS | CCD ---
Author Organization [facility] Care Team Providers Care Career Services Manager Name Role Phone Dr. Ap Morelos Chi Primary Care Provider Jethro, Dr. Ap Gallagher Referring Provider Dr. Raudel Samaniego Attending Provider Jethro ALVARADO, Dr. Ap Gallagher Primary Care Provider Jethro ALVARADO, Dr. Ap Gallagher Attending Provider [phone] Jethro ALVARADO, Dr. Ap Gallagher Referring Provider Dr. Neyda Killian DO Emergency Provider [phone] Jethro, Ap Chi Attending Unavailable Jethro, Ap Chi Primary Care Unavailable Jerardo Hannah Attending Unavailable Jerardo Hannah Referring Unavailable Jethro, Ap Chi Primary Care Unavailable Jethro, Ap Chi Attending Unavailable Jethro, Ap Chi Referring Unavailable Jethro, Ap Chi Primary Care Unavailable Jethro, Ap Chi Primary Care Unavailable Neyda Killian Attending Unavailable Jethro, Ap Chi Referring Unavailable PraJerardo car Attending Unavailable Jethro, Ap Chi Primary Care Unavailable Allergies Allergy Classification Reported Allergen(s) Allergy Type Date of Onset Reaction(s) Facility (5 sources) levomefolate; Translations: [levomefolate calcium] Drug Allergy 2 Unknown [facility] (4 sources) mecobalamin Drug Allergy 2 Unknown [facility] (4 sources) Penicillins Allergy to substance 2 Pain in joints [facility] (5 sources) Pyridoxal; Translations: [pyridoxal phosphate] Drug Allergy 2 Unknown [facility] (4 sources) Sulfonamides (Antibiotic) Allergy to substance 2 Hives [facility] (1 source) mecobalamin Drug Allergy 5 [facility] Repository (1 source) Penicillins Drug allergy (disorder) 5 [facility] Repository (1 source) Sulfonamides (Antibiotic) Drug allergy (disorder) 5 [facility] Repository Medications Current Medications Medication Drug Class(es) Dates Sig (Normalized) Sig (Original) amLODIPine 5 mg oral tablet (4 sources) Dihydropyridine Calcium Channel Pam Start: 02-05-2020 take 1 tablet by mouth once daily Amlodipine 5 MG tablet Active 5 mg PO DAILY February 05, 2020 12:00am blood perssure clopidogrel 75 mg oral tablet (4 sources) P2Y12 Platelet Inhibitor Start: 02-06-2020 take 1 tablet by mouth once daily Clopidogrel 75 MG tablet Active 75 mg PO DAILY 90 0 February 06, 2020 1:00am gabapentin 300 mg oral capsule (4 sources) Anti-epileptic Agent Start: 02-05-2020 take 1 capsule by mouth at bedtime Gabapentin 300 MG capsule Active 300 mg PO AT BEDTIME February 05, 2020 12:00am neuropathy latanoprost 0.05 mg/ml ophthalmic solution (1 source) Prostaglandin Analog Start: 09-24-2023 Latanoprost 0.005 % drops Active 1 NMA OPHTHALMIC DAILY September 24, 2023 12:00am Left wrist splint (4 sources) Start: 02-16-2020 Left wrist splint Active 0 .Route .MEDSUPPLY 1 0 February 16, 2020 1:00am Carpal tunnel syndrome, left upper limb wear left wrist splint nightly during sleep Start: 02-16-2020 Left wrist spl int Active 0 .Route .MEDSUPPLY 1 February 16, 2020 1:00am wear left wrist splint nightly during sleep levothyroxine sodium 0.088 mg oral tablet (6 sources) l-Thyroxine Start: 09-30-2023 take 1 tablet by mouth once daily Levothyroxine 88 mcg tablet Active 88 ug PO DAILY September 30, 2023 9:40am thyroid Start: 09-24-2023 End: 09-30-2023 Levothyroxine 88 mcg tablet Discontinued 100 ug PO DAILY September 24, 2023 10:13am September 30, 2023 9:42am thyroid Start: 02-05-2020 End: 09-24-2023 take 1 tablet by mouth once daily Levothyroxine 88 MCG tablet Discontinued 88 ug PO DAILY February 05, 2020 12:00am September 24, 2023 10:17am thyroid meloxicam 15 mg oral tablet (4 sources) Nonsteroidal Anti-inflammatory Drug Start: 02-05-2020 take 1 tablet by mouth once daily Meloxicam 15 MG tablet Active 15 mg PO DAILY February 05, 2020 12:00am metFORMIN hydrochloride 500 mg oral tablet (6 sources) Biguanide Start: 09-30-2023 take 1 tablet by mouth once daily Metformin 500 mg tablet Active 500 mg PO DAILY September 30, 2023 9:40am diabetes Start: 09-24-2023 End: 09-30-2023 take 2 tablets by mouth once daily Metformin 500 mg tablet Discontinued 1000 mg PO DAILY September 24, 2023 10:13am September 30, 2023 9:42am diabetes Start: 02-05-2020 End: 09-24-2023 take 1 tablet by mouth once daily Metformin 500 MG tablet Discontinued 500 mg PO DAILY February 05, 2020 12:00am September 24, 2023 10:17am diabetes omeprazole 20 mg delayed release oral capsule (1 source) Proton Pump Inhibitor Start: 09-30-2023 take 1 capsule by mouth once daily as needed for gastroesophageal reflux disease Omeprazole 20 mg capsule,delayed release(DR/EC) Active 20 mg PO DAILY as needed for reflux September 30, 2023 12:00am rosuvastatin calcium 40 mg oral tablet (1 source) HMG-CoA Reductase Inhibitor Start: 09-24-2023 take 1 tablet by mouth once daily Rosuvastatin 40 mg tablet Active 40 mg PO DAILY September 24, 2023 12:00am 12 hr timolol 5 mg/ml ophthalmic solution (1 source) beta-Adrenergi c Pam Start: 09-24-2023 take 0.5 drop(s) into the eye(s) once daily Timolol 0.5 % drops Active 1 NMA OPHTHALMIC DAILY September 24, 2023 12:00am Completed/Discontinued Medications Medication Drug Class(es) Dates Sig (Normalized) Sig (Original) aspirin 81 mg chewable tablet (4 sources) Platelet Aggregation Inhibitor, Nonsteroidal Anti-inflammatory Drug Start: 02-05-2020 End: 04-04-2020 take 1 tablet by mouth once daily Aspirin 81 MG tablet,chewable Discontinued 81 mg PO DAILY@0800 February 05, 2020 12:00am April 04, 2020 11:28am preventative atorvastatin 40 mg oral tablet (8 sources) HMG-CoA Reductase Inhibitor Start: 02-07-2020 End: 09-30-2023 take 1 tablet by mouth at bedtime Atorvastatin 40 MG tablet Discontinued 40 mg PO AT BEDTIME 30 0 February 07, 2020 1:00am September 30, 2023 9:40am Start: 02-05-2020 End: 02-07-2020 take 1 tablet by mouth at bedtime Atorvastatin 20 MG tablet Discontinued 20 mg PO AT BEDTIME February 05, 2020 12:00am February 07, 2020 4:30pm cholesterol cholecalciferol 1.25 mg oral capsule (20 sources) Vitamin D Start: 01-31-2021 End: 09-24-2023 take 1 capsule by mouth every month Cholecalciferol (Vitamin D3) 1,250 mcg (50,000 unit) capsule Discontinued 1250 ug PO EVERY MONTH 3 2 December 24, 2022 4:43pm June 29, 2023 1:29pm Start: 03-27-2020 End: 01-31-2021 take 1 capsule by mouth every week Cholecalciferol (Vitamin D3) 1,250 mcg (50,000 unit) capsule Discontinued 1250 ug PO EVERY WEEK 4 0 January 17, 2021 11:51am January 31, 2021 10:55am hydrOXYzine hydrochloride 25 mg oral tablet (4 sources) Antihistamine Start: 02-16-2020 End: 09-24-2023 Hydroxyzine Hcl 25 mg tablet Discontinued mg PO February 16, 2020 1:00am September 24, 2023 10:17am Start: 02-16-2020 Hydroxyzine Hc l Active MG PO February 16, 2020 1:00am oxyCODONE hydrochloride 5 mg oral capsule (1 source) Opioid Agonist Start: 10-28-2023 End: 12-20-2024 take 1 capsule by mouth every six hours as needed for pain Oxycodone 5 mg capsule Discontinued 5 mg PO EVERY 6 HOURS as needed for pain 12 3 0 October 28, 2023 December 20, 2024 9:18am Gouty arthropathy Gout, unspecified predniSONE 10 mg oral tablet (8 sources) Start: 02-16-2020 End: 09-30-2023 take 1 tablet by mouth once daily Prednisone 10 mg tablet Discontinued 10 mg PO DAILY March 27, 2020 9:31am September 30, 2023 9:41am Start: 02-16-2020 End: 03-27-2020 Prednisone Discontinued MG P O February 16, 2020 1:00am March 27, 2020 9:31am Problems Active Problems Problem Classification Problem Date Documented Date Episodic/Chronic Acute cerebrovascular disease (8 sources) Thalamic infarction; Translations: [Other cerebral infarction due to occlusion or stenosis of small artery] 03-27-2020 Chronic Comment on above: Acute/subacute infar ct in the left thalamus. per MRI 02/06/2020 Cardiac and circulatory congenital anomalies (4 sources) Patent foramen ovale; Translations: [Patent foramen ovale] 02-20-2020 Chronic Cardiac dysrhythmias (4 sources) Palpitations; Translations: [Palpitations] 02-20-2020 Episodic Deficiency and other anemia (4 sources) Chronic anemia; Translations: [Anemia, unspecified] 02-20-2020 Episodic Comment on above: Persistent chronic a nemia on Oral Iron. Hgb was 11.2 on 01/20/2024, Iron profile is normal, Vit B12 was low normal. FOBT was normal.Discussed findings with Pt and Daughter. Deficiency and other anemia (1 source) Anemia; Translations: [Anemia, unspecified] 09-30-2023 Episodic Deficiency and other anemia (1 source) Iron deficiency anemia; Translations: [Iron deficiency anemia, unspecified] 09-24-2023 Episodic Disorders of lipid metabolism (4 sources) Hyperlipidemia; Translations: [Hyperlipidemia, unspecified] 02-20-2020 Chronic Essential hypertension (5 sources) Essential hypertension; Translations: [Essential (primary) hypertension] Onset: 03-20-2024 02-20-2020 Chronic Gout and other crystal arthropathies (1 source) Articular gout; Translations: [Gout, unspecified] 10-28-2023 Chronic Nonspecific chest pain (4 sources) Chest pain; Translations: [Chest pain, unspecified] 02-22-2020 Episodic Nutritional deficiencies (5 sources) Vitamin D deficiency; Translations: [Vitamin D deficiency, unspecified] 03-27-2020 Chronic Other circulatory disease (1 source) Peripheral arterial occlusive disease; Translations: [Disorder of arteries and arterioles, unspecified] 09-24-2023 Chronic Other circulatory disease (4 sources) History of cerebrovascular accident; Translations: [Personal history of transient ischemic attack (TIA), and cerebral infarction without residual deficits] 01-31-2021 Episodic Other circulatory disease (1 source) Personal history of transient ischemic attack (TIA), and cerebral infarction without residual deficits; Translations: [Personal history of transient ischemic attack (TIA), and cerebral infarction without residual deficits] 06-29-2023 Episodic Other connective tissue disease (1 source) Synovial cyst of popliteal space [Her], unspecified knee; Translations: [Synovial cyst of popliteal space] 12-20-2024 Episodic Other nervous system disorders (2 sources) Carpal tunnel syndrome; Translations: [Carpal tunnel syndrome, left upper limb] 03-27-2020 Chronic Other nervous system disorders (4 sources) Polyneuropathy; Translations: [Polyneuropathy, unspecified] 03-27-2020 Chronic Other nervous system disorders (2 sources) Carpal tunnel syndrome of left wrist; Translations: [Carpal tunnel syndrome, left upper limb] 03-27-2020 Chronic Other nervous system disorders (1 source) Carpal tunnel syndrome, left upper limb; Translations: [Carpal tunnel syndrome] 06-29-2023 Chronic Other nervous system disorders (1 source) Polyneuropathy, unspecified; Translations: [Unspecified hereditary and idiopathic peripheral neuropathy] 06-29-2023 Chronic Other non-traumatic joint disorders (2 sources) Hip pain; Translations: [Pain in right hip] 06-29-2023 Episodic Other non-traumatic joint disorders (1 source) Pain in right hip; Translations: [Pain in joint, pelvic region and thigh] 06-29-2023 Episodic Other non-traumatic joint disorders (1 source) Pain in right knee; Translations: [Pain in right knee] Onset: 12-26-2024 Episodic Residual codes; unclassified (4 sources) History of palpitations; Translations: [Personal history of other specified conditions] 02-22-2020 Episodic Retinal detachments; defects; vascular occlusion; and retinopathy (1 source) Degenerative disorder of macula ; Translations: [Unspecified macular degeneration] 09-24-2023 Chronic Superficial injury; contusion (1 source) Injury of right lower leg; Translations: [Contusion of right lower leg, initial encounter] 12-20-2024 Episodic Thyroid disorders (1 source) Hypothyroidism, unspecified; Translations: [Hypothyroidism, unspecified] Onset: 08-25-2024 Chronic Past or Other Problems Problem Classification Problem Date Documented Da te Episodic/Chronic Deficiency and other anemia (1 source) Anemia, unspecified; Translations: [Anemia, unspecified] Onset: 02-15-2024 Episodic Results Test Name Value Interpretation Reference Range Facility Emergency Department Summary on 12-20-2024 Emergency Department Summary [facility] Medical Records Department [address] [place] [address] Emergency Department Summary 12/20/24 MR#: [id number] Acct: [id number] Name: ADRIANNA SIDDIQUI JOHN Rep #: [id number] : 1935 89 From: Neyda Killian DO PCP: Dr. Ap Morelos MD Status:DEP ER Location: ED HPI History of Present Illness Chief Complaint: Lower Extremity Injury Informant: patient and family Narrative Narrative: Patient is a 89 year old female with history of stroke, polyneuropathy, peripheral arterial disease, varicose veins of the lower extremities and chronically on Plavix presenting with bruising and discomfort to her right lower extremity. She noticed other symptoms today when she looked at her legs but does admit that she does not regularly look at her legs. She does recall hitting her leg with a mop a week or 2 ago but is not sure when his bruising actually developed. Pain is worse behind her right knee. She did notice some tingling down to her right foot today. She came in because she is concerned about a DVT. She denies any history of DVT. Denies any significant pain at this time. Denies any acute numbness. Denies any shortness of breath or difficulty breathing. Denies any chest pain. Denies any recent falls or other trauma. Came in for further evaluation with family [facility] Medical History PAOD (peripheral arterial occlusive disease) Macular degeneration Iron deficiency anemia History of stroke Lower extremity neuropathy Carpal tunnel syndrome of left wrist Chronic anemia Polyneuropathy Essential (primary) hypertension CVA (cerebral vascular accident) Hyperlipemia Palpitations Edema Patent foramen ovale Debility Hypothyroidism DM type 2 (diabetes mellitus, type 2) Hypertensive urgency (02/05/20) Left arm weakness Paresthesias Home Medications ???Medication ???Instructions ???Recorded ???Last Taken ???Type amlodipine 5 mg tablet 5 mg PO DAILY blood perssure 02/0402/05/20 06:00 History gabapentin 300 mg capsule 300 mg PO QHS neuropathy 02/05/20 Unknown History meloxicam 15 mg tablet 15 mg PO DAILY 02/05/20 02/05/20 0 6:00 History clopidogrel 75 mg tablet 75 mg PO DAILY #90 tabs 02/06/20 U nknown Rx Left wrist splint #1 ea 02/16/20 Unknown Rx latanoprost 0.005 % eye drops 1 drp ophthalmic (eye) DAILY 09/23 Unknown History rosuvastatin 40 mg tablet 40 mg PO DAILY 09/24/23 Unknown Hi story timolol 0.5 % eye drops 1 drp ophthalmic (eye) DAILY 09/23 Unknown History levothyroxine 88 mcg tablet 88 mcg PO DAILY thyroid 09/30/23 U nknown History metformin 500 mg tablet 500 mg PO DAILY diabetes 09/30/23 Unknown History omeprazole 20 mg capsule,delayed 20 mg PO DAILY PRN reflux 09/30/23 Unknown History release Allergy/AdvReac Type Severity Reaction Status Date / Time levomefolate calcium (From Allergy Unknown Unknown Verified 12/20/24 09:08 Metanx) mecobalamin (From Metanx) Allergy Unknown Unknown Verified 12/20/24 09:08 pyridoxal phosphate (From Allergy Unknown Unknown Verified 12/20/24 09:08 Metanx) Penicillins Allergy Pain in Verified 12/20/24 09:08 joints Sulfa (Sulfonamide Allergy Hives Verified 12/20/24 09:08 Antibiotics) Family History Mother Hypertension Father Emphysema/COPD Surgical History H/O section H/O tooth extraction Cataract H/O tubal ligation History of dilatation and curettage Social History Smoking Status: Never smoker second hand exposure: No alcohol intake: current alcohol intake frequency: holidays/special occasions only substance use type: does not use ROS ROS ED Constitutional Constitutional ED: Denies chills or fever(s) Cardiovascular Cardiovascular: Denies chest pain Respiratory/Chest Respiratory/Chest: Denies dyspnea Musculoskeletal Musculoskeletal: Reports other Details: Right knee pain-posterior Integumentary Reports other Details: Bruising to the right lower extremity Neurologic Neurologic: Reports paresthesias RLE; Denies weakness Hematologic/Lymphatic Hematologic/Lymphatic: Reports easy bruising and other Details: on Plavix ; Denies easy bleeding EXAM Physical Exam Const Vital Signs: 12/20/24 09:08 12/20/24 10:29 Temperature 98.7 F 98 F Temperature Source Oral Pulse Rate 74 97 Respiratory Rate 18 16 Blood Pressure 155/90 H 145/59 H Blood Pressure Mean 111 87 Pulse Ox 100 97 Oxygen Delivery Method Room Air Positive well nourished and well developed General Appearance ED: well developed and NAD HEENT Reports moist mucous membranes Neck (more content not included)... Normal [facility] Venous Duplex US, Unilateral on 12-20-2024 Venous Duplex US, Unilateral [facility] Cardi[facility] [address] [place] [place] [address] Venous Duplex US, Unilateral 12/20/24 0946 MR#: [id number] Acct: [id number] Name: ADRIANNA SIDDIQUI JOHN Rep #: [id number] : 1935 89 From: Loy Valenzuela MD Attending Dr: Status: DEP ER Ordering Dr: Neyda Killian DO Date: 12/20/24 Location: ED Sex: F C Admitted: Reason For Study Reason For Study: RLE Pain RIGHT LEFT GSV is normal. CFV is compressible, spontaneous, phasic, competent, CFV is compressible, phasic, and INCOMPETENT for and demonstrates normal augmentation. greater than 1.0 second. FV is compressible, spontaneous, phasic, competent and demonstrates normal augmentation. POP V is compressible, spontaneous, phasic, competent and demonstrates normal augmentation. T/P Trunk is compressible. PTV is compressible. RT PerV is compressible. Multiple compressible varicose veins noted throughout RLE. Nonvascularized anechoic area noted in Rt Pop Fossa measuring approximately 3.25cm x 1.26cm. Procedure This is a venous duplex using B-mode, color flow and spectral Doppler. Exam performed portable in ED. The exam was diagnostic. A preliminary report was called and/or faxed to ED financial aid counselor. VL/Venous Duplex US, Unilateral Interpretation Summary Deep veins of the right lower extremity are patent and compressible segmentally. There is no evidence of right lower extremity deep vein thrombosis. The right common femoral vein is incompetent. The right great saphenous vein appears patent and compressible segmentally. Multiple compressible varicose veins are noted throughout the right lower extremity. A non-vascular, anechoic structure is noted in the right popliteal space, measuring 3.25 cm x 1.26 cm. This probably represents a popliteal cyst. Clinical correlation is advised. The left common femoral vein is patent and compressible. Ordering Physician: Neyda Killian Referring Physician: Ap Morelos Chi Performed By: Royal Gamble, T 12/21/241715 Date Loy Valenzuela MD CC: Dr. Neyda Killian DO; Dr. Ap Morelos MD Date Dictated: 12/20/24945 Date Transcribed: 12/21/241715 Air Quality Engineer: Signed Normal [facility] Absolute lymphocyte countOrd ered By: Ap Morelos on 08-22-2024 Lymphocytes Auto (Unsp spec) [#/Vol] 0.96 10*3/uL 0.83-4.51 [facility] Absolute neutrophil countOrd ered By: Ap Morelos on 08-22-2024 Neutrophils (Bld) [#/Vol] 2.2 10*3/uL 2.0-7.7 [facility] Anion gap in Serum or Plasma Ordered By: Ap Morelos on 08-22-2024 Anion gap [Moles/Vol] 13 mmol/L 5-15 [facility] Automated lymphocyte count a s percentage of total leukocytesOrdered By: Ap Morelos on 08-22-2024 Lymphocytes/100 WBC Auto (Unsp spec) 27.1 % - [facility] BUN/creatinine ratioOrdered By: Ap Morelos on 08-22-2024 Urea nitrogen/Creatinine [Mass ratio] 16.7 mg/mg 10- [facility] Basophil percentageOrdered B y: Ap Morelos on 08-22-2024 Basophils/100 WBC (Bld) 0.6 % 0-1 [facility] Bilirubin, totalOrdered By: Ap Morelos on 08-22-2024 Bilirubin [Mass/Vol] 0.38 mg/dL 0.00-1.30 [facility] CBC W/Diff, Automatedon 08-04 Absolute Lymph 0.96 X10 3/uL Normal 0.83-4.51 [facility] Comment on above: Performed By: #### L 506.1001, L100.0100, L500.4050, L501.9520 ####[facility] [address] [place], [address] Absolute Neut 2.2 X10 3/uL Normal 2.0-7.7 [facility] Comment on above: Performed By: #### L 506.1001, L100.0100, L500.4050, L501.9520 ####[facility] [address] [place], [address] Basophils/100 WBC (Bld) 0.6 % Normal 0-1 [facility] Comment on above: Performed By: #### L 506.1001, L100.0100, L500.4050, [id number] ####[facility] [address] [place], [address] Eosinophils/100 WBC (Bld) 3.7 % Normal 0-5 [facility] Comment on above: Performed By: #### L 506.1001, L100.0100, L500.4050, L501.9520 ####[facility] [address] [place], [address] Erythrocyte distribution width (RBC) [Ratio] 13.3 % Normal 11.6-14.6 [facility] Comment on above: Performed By: #### L 506.1001, L100.0100, L500.4050, L501.9520 ####[facility] [address] [place], [address] Hematocrit (Bld) [Volume fraction] 33.6 % Low 37-47 [facility] Comment on above: Performed By: #### L 506.1001, L100.0100, L500.4050, L501.9520 ####[facility] [address] [place], [address] Hemoglobin (Bld) [Mass/Vol] 11.0 g/dL Low 12.0-15.0 [facility] Comment on above: Performed By: #### L 506.1001, L100.0100, L500.4050, L501.9520 ####[facility] [address] [place], [address] IG% 0.300 Normal 0.0-0.9 [facility] Comment on above: Result Comment: IG% - Immature Granulocytes (promyelocytes, myelocytes and metamyelocytes) > 1% indicates that a LEFT SHIFT is Present. Performed By: #### L 506.1001, L100.0100, L500.4050, L501.9520 ####[facility] [address] [place], [address] Lymphocytes/100 WBC (Bld) 27.1 % Normal 19-41 [facility] Comment on above: Performed By: #### L 506.1001, L100.0100, L500.4050, L501.9520 ####[facility] [address] [place], [address] MCH (RBC) [Entitic mass] 31.9 pg Normal 27.0-32.0 [facility] Comment on above: Performed By: #### L 506.1001, L100.0100, L500.4050, L501.9520 ####[facility] [address] [place], [address] MCHC (RBC) [Mass/Vol] 32.7 g/dL Normal 32-36 [facility] Comment on above: Performed By: #### L 506.1001, L100.0100, L500.4050, L501.9520 ####[facility] [address] [place], [address] MCV (RBC) [Entitic vol] 97.4 fL Normal 81-99 [facility] Comment on above: Performed By: #### L 506.1001, L100.0100, L500.4050, L501.9520 ####[facility] [address] [place], [address] Monocytes/100 WBC (Bld) 7.3 % Normal 0-10 [facility] Comment on above: Performed By: #### L 506.1001, L100.0100, L500.4050, [id number] ####[facility] [address] [place], [address] Neutrophils/100 WBC (Bld) 61.0 % Normal 47-70 [facility] Comment on above: Performed By: #### L 506.1001, L100.0100, L500.4050, L501.9520 ####[facility] [address] [place], [address] Nucleated RBC (Bld) [#/Vol] 0 10*3/uL Normal 0-5 [facility] Comment on above: Performed By: #### L 506.1001, L100.0100, L500.4050, [id number] ####[facility] [address] [place], [address] Platelet mean volume (Bld) [Entitic vol] 8.9 fL Normal 6.2-12.0 [facility] Comment on above: Performed By: #### L 506.1001, L100.0100, L500.4050, L501.9520 ####[facility] [address] [place], [address] Platelets (Bld) [#/Vol] 184 10*3/uL Normal 150-450 [facility] Comment on above: Performed By: #### L 506.1001, L100.0100, L500.4050, L501.9520 ####[facility] [address] [place], [address] RBC (Bld) [#/Vol] 3.45 10*6/uL Low 4.2-5.4 [facility] Comment on above: Performed By: #### L 506.1001, L100.0100, L500.4050, L501.9520 ####[facility] [address] [place], [address] RDW SD 47.3 fl High 35.1-43.9 [facility] Comment on above: Performed By: #### L 506.1001, L100.0100, L500.4050, L501.9520 ####[facility] [address] [place], [address] WBC (Bld) [#/Vol] 3.5 10*3/uL Low 4.4-11.0 [facility] Comment on above: Performed By: #### L 506.1001, L100.0100, L500.4050, L501.9520 ####[facility] [address] [place], [address] Carbon dioxide, total [Moles /volume] in Central venous bloodOrdered By: Ap Morelos on 08-22-2024 CO2 [Moles/Vol] 24.3 mmol/L 21.0-32.0 [facility] Chloride assayOrdered By: Nathaniel Morelos on 08-22-2024 Chloride [Moles/Vol] 103 mmol/L 98-108 [facility] Comprehensive Metabolic Prof ilon 08-22-2024 Albumin [Mass/Vol] 4.4 g/dL Normal 3.4-4.8 [facility] Comment on above: Performed By: #### L 506.1001, L100.0100, L500.4050, L501.9520 ####[facility] [address] [place], [address] Albumin/Globulin [Mass ratio] 1.5 {ratio} Normal 0.9-2.4 [facility] Comment on above: Performed By: #### L 506.1001, L100.0100, L500.4050, L501.9520 ####[facility] [address] [place], [address] ALK PHOS 63 U/L Normal 35-104 [facility] Comment on above: Performed By: #### L 506.1001, L100.0100, L500.4050, L501.9520 ####[facility] [address] [place], [address] ALT [Catalytic activity/Vol] 16 U/L Normal <=34 [facility] Comment on above: Performed By: #### L 506.1001, L100.0100, L500.4050, L501.9520 ####[facility] [address] [place], [address] AST [Catalytic activity/Vol] 20 U/L Normal <=31 [facility] Comment on above: Performed By: #### L 506.1001, L100.0100, L500.4050, L501.9520 ####[facility] [address] [place], [address] Bilirubin [Mass/Vol] 0.38 mg/dL Normal 0.00-1.30 [facility] Comment on above: Performed By: #### L 506.1001, L100.0100, L500.4050, L501.9520 ####[facility] [address] [place], [address] BUN/CRE 16.7 RATIO Normal 10-20 [facility] Comment on above: Performed By: #### L 506.1001, L100.0100, L500.4050, L501.9520 ####[facility] [address] [place], [address] Calcium [Mass/Vol] 10.1 mg/dL Normal 7.6-11.0 [facility] Comment on above: Performed By: #### L 506.1001, L100.0100, L500.4050, L501.9520 ####[facility] [address] [place], [address] Chloride [Moles/Vol] 103 mmol/L Normal 98-108 [facility] Comment on above: Performed By: #### L 506.1001, L100.0100, L500.4050, L501.9520 ####[facility] [address] [place], [address] CO2 [Moles/Vol] 24.3 mmol/L Normal 21.0-32.0 [facility] Comment on above: Performed By: #### L 506.1001, L100.0100, L500.4050, L501.9520 ####[facility] [address] [place], [address] Creatinine [Mass/Vol] 0.98 mg/dL Normal 0.70-1.20 [facility] Comment on above: Performed By: #### L 506.1001, L100.0100, L500.4050, L501.9520 ####[facility] [address] [place], [address] GAP 13 Normal 5-15 [facility] Comment on above: Performed By: #### L 506.1001, L100.0100, L500.4050, L501.9520 ####[facility] [address] [place], [address] GFR/1.73 sq M.predicted among non-blacks MDRD (S/P/Bld) [Vol rate/Area] 56 mL/min/{1.73_m2} Low >60 [facility] Comment on above: Result Comment: mL/m in/1.73m2 CKD-EPI Creatinine Equation (2020) Performed By: #### L 506.1001, L100.0100, L500.4050, L501.9520 ####[facility] [address] [place], [address] Globulin (S) [Mass/Vol] 2.9 g/dL Normal 2.2-4.2 [facility] Comment on above: Performed By: #### L 506.1001, L100.0100, L500.4050, L501.9520 ####[facility] [address] [place], [address] Glucose [Mass/Vol] 123 mg/dL High 70-99 [facility] Comment on above: Performed By: #### L 506.1001, L100.0100, L500.4050, L501.9520 ####[facility] [address] [place], [address] Potassium [Moles/Vol] 4.2 mmol/L Normal 3.3-5.1 [facility] Comment on above: Performed By: #### L 506.1001, L100.0100, L500.4050, L501.9520 ####[facility] [address] [place], [address] Sodium [Moles/Vol] 140 mmol/L Normal 133-145 [facility] Comment on above: Performed By: #### L 506.1001, L100.0100, L500.4050, L501.9520 ####[facility] [address] [place], [address] T PROT 7.4 g/dL Normal 5.9-8.4 [facility] Comment on above: Performed By: #### L 506.1001, L100.0100, L500.4050, L501.9520 ####[facility] [address] [place], [address] Urea nitrogen [Mass/Vol] 16 mg/dL Normal -19 [facility] Comment on above: Performed By: #### L 506.1001, L100.0100, L500.4050, L501.9520 ####[facility] [address] [place], [address] Eosinophil percentageOrdered By: Ap Morelos on 08-22-2024 Eosinophils/100 WBC (Bld) 3.7 % 0-5 [facility] Erythrocyte distribution wid th ratioOrdered By: Ap Morelos on 08-22-2024 Erythrocyte distribution width (RBC) [Ratio] 13.3 % 11.6-14.6 [facility] Erythrocyte distribution wid th standard deviationOrdered By: Ap Morelos on 08-22-2024 Erythrocyte distribution width (RBC) [Ratio] 47.3 fl High 35.1-43.9 [facility] Glomerular filtration rate ( GFR) estimation/1.73 sq m using serum, plasma, or whole bOrdered By: Ap Morelos on 08-22-2024 GFR/1.73 sq M.predicted among non-blacks MDRD (S/P/Bld) [Vol rate/Area] 56 mL/min/{1.73_m2} Low >60 [facility] Comment on above: mL/min/1.73m2 CKD-EP I Creatinine Equation (2020) Hematocrit Auto (Bld) [Volum e fraction]Ordered By: Ap Morelos on 08-22-2024 Hematocrit (Bld) [Volume fraction] 33.6 % Low 37-47 [facility] Hemoglobin measurementOrdere d By: Ap Morelos on 08-22-2024 Hemoglobin (Bld) [Mass/Vol] 11.0 g/dL Low 12.0-15.0 [facility] Immature granulocytes/100 WB C Auto (Bld)Ordered By: Ap Morelos on 08-22-2024 Immature granulocytes/100 WBC (Bld) 0.300 % 0.0-0.9 [facility] Comment on above: IG% - Immature Granu locytes (promyelocytes, myelocytes and metamyelocytes) > 1% indicates that a LEFT SHIFT is Present. Laboratory - Chemistry and C hemistry - challengeOrdered By: Ap Morelos on 08-22-2024 AST [Catalytic activity/Vol] 20 U/L <32 [facility] MCV (mean corpuscular volume ) determinationOrdered By: Ap Morelos on 08-22-2024 MCV (RBC) [Entitic vol] 97.4 fL 81-99 [facility] Mean corpuscular hemoglobin (MCH) determinationOrdered By: Ap Morelos 08-22-2024 MCH (RBC) [Entitic mass] 31.9 pg 27.0-32.0 [facility] Mean corpuscular hemoglobin concentration (MCHC) determinationOrdered By: Ap Morelos 08-22-2024 MCHC (RBC) [Mass/Vol] 32.7 g/dL 32-36 [facility] Mean platelet volume determi nationOrdered By: Ap Morelos on 08-22-2024 Platelet mean volume (Bld) [Entitic vol] 8.9 fL 6.2-12.0 [facility] Monocyte percentageOrdered B y: Ap Morelos on 08-22-2024 Monocytes/100 WBC (Bld) 7.3 % 0-10 [facility] Neutrophil percentageOrdered By: Ap Morelos on 08-22-2024 Neutrophils/100 WBC (Bld) 61.0 % 47-70 [facility] Nucleated red blood cell per centageOrdered By: Ap Morelos on 08-22-2024 Nucleated RBC/100 WBC (Bld) [Ratio] 0 % 0-5 [facility] Platelet countOrdered By: Nathaniel Morelos on 08-22-2024 Platelets (Bld) [#/Vol] 184 10*3/uL 150-450 [facility] Potassium measurement (mass/ volume)Ordered By: Ap Morelos on 08-22-2024 Potassium (Unsp spec) [Mass/Vol] 4.2 mmol/L 3.3-5.1 [facility] RBC Auto (Bld) [#/Vol]Ordere d By: Ap Morelos on 08-22-2024 RBC (Bld) [#/Vol] 3.45 10*6/uL Low 4.2-5.4 [facility] Serum creatinine measurement (mass/volume)Ordered By: Ap Morelos on 08-22-2024 Creatinine [Mass/Vol] 0.98 mg/dL 0.70-1.20 [facility] Serum globulin measurementOr dered By: Ap Morelos 08-22-2024 Globulin (S) [Mass/Vol] 2.9 g/dL 2.2-4.2 [facility] Serum glucose measurement (m ass/volume)Ordered By: Ap Morelos 08-22-2024 Glucose [Mass/Vol] 123 mg/dL High 70-99 [facility] Serum or plasma alanine de la rosa otransferase (ALT) measurementOrdered By: Ap Morelos 08-22-2024 ALT [Catalytic activity/Vol] 16 U/L <35 [facility] Serum or plasma albumin casandra urement (mass/volume)Ordered By: Ap Morelos 08-22-2024 Albumin [Mass/Vol] 4.4 g/dL 3.4-4.8 [facility] Serum or plasma albumin/glob ulin mass ratioOrdered By: Ap Morelos 08-22-2024 Albumin/Globulin [Mass ratio] 1.5 {ratio} 0.9-2.4 [facility] Serum or plasma alkaline abi sphatase measurementOrdered By: Ap Morelos 08-22-2024 ALP [Catalytic activity/Vol] 63 U/L 35-104 [facility] Serum or plasma calcium casandra urement (mass/volume)Ordered By: Ap Morelos 08-22-2024 Calcium [Mass/Vol] 10.1 mg/dL 7.6-11.0 [facility] Serum or plasma urea nitroge n measurement (mass/volume)Ordered By: Ap Morelos 08-22-2024 Urea nitrogen [Mass/Vol] 16 mg/dL 4-19 [facility] Sodium levelOrdered By: Ap Morelos on 08-22-2024 Sodium [Moles/Vol] 140 mmol/L 133-145 [facility] TSH DL <= 0.005 mIU/L QnOrde red By: Ap Morelos on 08-22-2024 TSH Qn 2.050 uIU/mL 0.300-4.200 [facility] Thyroid Stim Hormone (TSH)on 08-22-2024 TSH 2.050 uIU/mL Normal 0.300-4.200 [facility] Comment on above: Performed By: #### L 506.1001, L100.0100, L500.4050, L501.9520 ####[facility] [address] [place], [place], [id number] Total proteinOrdered By: Ap Morelos on 08-22-2024 Protein [Mass/Vol] 7.4 g/dL 5.9-8.4 [facility] Vitamin D,25 Hydroxyon 08-22 Vitamin D 25-OH 49.7 ng/mL Normal 30-100 [facility] Comment on above: Result Comment: Hina min D Status Deficiency: <20 ng/mL (50nmol/L) Insufficiency: 20-30 ng/mL (50-75 nmol/L) Sufficiency: 30-100 ng/mL (75-250 nmol/L) Toxicity: >100 ng/mL (>250 nmol/L) Performed By: #### L 506.1001, L100.0100, L500.4050, L501.9520 ####[facility] [address] [place], [place], [address] White blood cell (WBC) count Ordered By: Ap Morelos on 08-22-2024 WBC (Bld) [#/Vol] 3.5 10*3/uL Low 4.4-11.0 [facility] CBC W/Diff, Automatedon 02-04 Absolute Lymph 1.47 X10 3/uL Normal 0.83-4.51 [facility] Comment on above: Performed By: #### L 501.9520, L506.1000, L100.0100, L500.4050 ####[facility] [address] [place], [address] Absolute Neut 3.2 X10 3/uL Normal 2.0-7.7 [facility] Comment on above: Performed By: #### L 501.9520, L506.1000, L100.0100, L500.4050 ####[facility] [address] [place], [address] Basophils/100 WBC (Bld) 0.6 % Normal 0-1 [facility] Comment on above: Performed By: #### L 501.9520, L506.1000, L100.0100, L500.4050 ####[facility] [address] [place], [address] Eosinophils/100 WBC (Bld) 2.9 % Normal 0-5 [facility] Comment on above: Performed By: #### L 501.9520, L506.1000, L100.0100, L500.4050 ####[facility] [address] [place], [address] Erythrocyte distribution width (RBC) [Ratio] 13.4 % Normal 11.6-14.6 [facility] Comment on above: Performed By: #### L 501.9520, L506.1000, L100.0100, L500.4050 ####[facility] [address] [place], [address] Hematocrit (Bld) [Volume fraction] 36.4 % Low 37-47 [facility] Comment on above: Performed By: #### L 501.9520, L506.1000, L100.0100, L500.4050 ####[facility] [address] [place], [address] Hemoglobin (Bld) [Mass/Vol] 11.7 g/dL Low 12.0-15.0 [facility] Comment on above: Performed By: #### L 501.9520, L506.1000, L100.0100, L500.4050 ####[facility] [address], [address] IG% 0.400 Normal 0.0-0.9 [facility] Comment on above: Result Comment: IG% - Immature Granulocytes (promyelocytes, myelocytes and metamyelocytes) > 1% indicates that a LEFT SHIFT is Present. Performed By: #### L 501.9520, L506.1000, L100.0100, L500.4050 ####[facility] [address], [address] Lymphocytes/100 WBC (Bld) 28.1 % Normal 19-41 [facility] Comment on above: Performed By: #### L 501.9520, L506.1000, L100.0100, L500.4050 ####[facility] [address] [place], [address] MCH (RBC) [Entitic mass] 31.1 pg Normal 27.0-32.0 [facility] Comment on above: Performed By: #### L 501.9520, L506.1000, L100.0100, L500.4050 ####[facility] [address] [place], [address] MCHC (RBC) [Mass/Vol] 32.1 g/dL Normal 32-36 [facility] Comment on above: Performed By: #### L 501.9520, L506.1000, L100.0100, L500.4050 ####[facility] [address] [place], [address] MCV (RBC) [Entitic vol] 96.8 fL Normal 81-99 [facility] Comment on above: Performed By: #### L 501.9520, L506.1000, L100.0100, L500.4050 ####[facility] [address] [place], [address] Monocytes/100 WBC (Bld) 7.6 % Normal 0-10 [facility] Comment on above: Performed By: #### L 501.9520, L506.1000, L100.0100, L500.4050 ####[facility] [address] [place], [address] Neutrophils/100 WBC (Bld) 60.4 % Normal 47-70 [facility] Comment on above: Performed By: #### L 501.9520, L506.1000, L100.0100, L500.4050 ####[facility] [address] [place], [address] Nucleated RBC (Bld) [#/Vol] 0 10*3/uL Normal 0-5 [facility] Comment on above: Performed By: #### L 501.9520, L506.1000, L100.0100, L500.4050 ####[facility] [address] [place], [address] Platelet mean volume (Bld) [Entitic vol] 9.7 fL Normal 6.2-12.0 [facility] Comment on above: Performed By: #### L 501.9520, L506.1000, L100.0100, L500.4050 ####[facility] [address] [place], [address] Platelets (Bld) [#/Vol] 219 10*3/uL Normal 150-450 [facility] Comment on above: Performed By: #### L 501.9520, L506.1000, L100.0100, L500.4050 ####[facility] [address] [place], [address] RBC (Bld) [#/Vol] 3.76 10*6/uL Low 4.2-5.4 [facility] Comment on above: Performed By: #### L 501.9520, L506.1000, L100.0100, L500.4050 ####[facility] [address] [place], [address] RDW SD 47.8 fl High 35.1-43.9 [facility] Comment on above: Performed By: #### L 501.9520, L506.1000, L100.0100, L500.4050 ####[facility] [address] [place], [address] WBC (Bld) [#/Vol] 5.2 10*3/uL Normal 4.4-11.0 [facility] Comment on above: Performed By: #### L 501.9520, L506.1000, L100.0100, L500.4050 ####[facility] [address] [place], [address] Comprehensive Metabolic [facility] 02-23-2024 Albumin [Mass/Vol] 4.1 g/dL Normal 3.2-5.0 [facility] Comment on above: Performed By: #### L 501.9520, L506.1000, L100.0100, L500.4050 ####[facility] [address] [place], [address] Albumin/Globulin [Mass ratio] 1.1 {ratio} Normal 0.9-2.4 [facility] Comment on above: Performed By: #### L 501.9520, L506.1000, L100.0100, L500.4050 ####[facility] [address] [place], [address] ALK P 70 U/L Normal 45-117 [facility] Comment on above: Performed By: #### L 501.9520, L506.1000, L100.0100, L500.4050 ####[facility] [address] [place], [address] ALT [Catalytic activity/Vol] 21 U/L Normal 13-56 [facility] Comment on above: Performed By: #### L 501.9520, L506.1000, L100.0100, L500.4050 ####[facility] [address] [place], [address] AST [Catalytic activity/Vol] 13 U/L Low 15-37 [facility] Comment on above: Performed By: #### L 501.9520, L506.1000, L100.0100, L500.4050 ####[facility] [address] [place], [address] Bilirubin [Mass/Vol] 0.40 mg/dL Normal 0.20-1.00 [facility] Comment on above: Result Comment: For patients on eltrombopag therapy, use of Dimension [place] TBIL is not recommended. Performed By: #### L 501.9520, L506.1000, L100.0100, L500.4050 ####[facility] [address] [place], [address] BUN/CRE 20.4 RATIO High 10-20 [facility] Comment on above: Performed By: #### L 501.9520, L506.1000, L100.0100, L500.4050 ####[facility] [address] [place], [address] CA,Total 9.9 mg/dL Normal 8.5-10.1 [facility] Comment on above: Performed By: #### L 501.9520, L506.1000, L100.0100, L500.4050 ####[facility] [address] [place], [address] Chloride [Moles/Vol] 104 mmol/L Normal 98-107 [facility] Comment on above: Performed By: #### L 501.9520, L506.1000, L100.0100, L500.4050 ####[facility] [address] [place], [address] CO2 [Moles/Vol] 28.0 mmol/L Normal 21.0-32.0 [facility] Comment on above: Performed By: #### L 501.9520, L506.1000, L100.0100, L500.4050 ####[facility] [address] [place], [address] Creatinine [Mass/Vol] 1.08 mg/dL High 0.55-1.02 [facility] Comment on above: Result Comment: The validity of the calculated GFR GFRAA in patients over 70 years has not been determined. Clinical correlation is essential. Performed By: #### L 501.9520, L506.1000, L100.0100, L500.4050 ####[facility] [address] [place], [address] EST GFR - AA 62 mL/min Normal >60 [facility] Comment on above: Result Comment: Afri can Ethiopian GFR Calc Performed By: #### L 501.9520, L506.1000, L100.0100, L500.4050 ####[facility] [address] [place], [address] GAP 4 Low 5-15 [facility] Comment on above: Performed By: #### L 501.9520, L506.1000, L100.0100, L500.4050 ####[facility] [address] [place], [address] GFR/1.73 sq M.predicted among non-blacks MDRD (S/P/Bld) [Vol rate/Area] 51 mL/min/{1.73_m2} Low >60 [facility] Comment on above: Result Comment: Non- GFR Calc Performed By: #### L 501.9520, L506.1000, L100.0100, L500.4050 ####[facility] [address] [place], [address] Globulin (S) [Mass/Vol] 3.6 g/dL Normal 2.2-4.2 [facility] Comment on above: Performed By: #### L 501.9520, L506.1000, L100.0100, L500.4050 ####[facility] [address] [place], [address] Glucose [Mass/Vol] 138 mg/dL High 74-106 [facility] Comment on above: Result Comment: Fast ing Glucose result greater than or equal to 126 mg/dL suggests DIABETES MELLITUS per A.D.A. criteria. Performed By: #### L 501.9520, L506.1000, L100.0100, L500.4050 ####[facility] [address] [place], [address] Potassium [Moles/Vol] 4.3 mmol/L Normal 3.5-5.1 [facility] Comment on above: Performed By: #### L 501.9520, L506.1000, L100.0100, L500.4050 ####[facility] [address] [place], [address] Sodium [Moles/Vol] 137 mmol/L Normal 136-145 [facility] Comment on above: Performed By: #### L 501.9520, L506.1000, L100.0100, L500.4050 ####[facility] [address] [place], [address] T PROT 7.7 g/dL Normal 6.4-8.2 [facility] Comment on above: Performed By: #### L 501.9520, L506.1000, L100.0100, L500.4050 ####[facility] [address] [place], [address] Urea nitrogen [Mass/Vol] 22 mg/dL High 7-18 [facility] Comment on above: Performed By: #### L 501.9520, L506.1000, L100.0100, L500.4050 ####[facility] [address] [place], [address] Thyroid Stim Hormone (TSH)on 02-23-2024 TSH 6.970 uIU/mL High 0.358-3.740 [facility] Comment on above: Performed By: #### L 501.9520, L506.1000, L100.0100, L500.4050 ####[facility] [address] [place], [address] Vitamin D,25 Hydroxyon 02-22 Vitamin D 25-OH 42.5 ng/mL Normal [facility] Comment on above: Result Comment: Hina min D 25(OH) Status Range Deficiency <20 ng/mL (50nmol/L) Insufficiency 20 - 30 ng/mL (50 - 75 nmol/L) Sufficiency 30 - 100 ng/mL (75 - 250 nmol/L) Toxicity >100 ng/mL (>250 nmol/L) Performed By: #### L 501.9520, L506.1000, L100.0100, L500.4050 ####[facility] [address] [place], [address] L5000.0012on 01-23-2024 Vitamin B12 Normal [facility] Comment on above: Result Comment: TEST RESULTS LIMITS Vitamin B12 401 pg/mL [id number] TESTING PERFORMED AT [facility]. ORIGINAL REPORT ON FILE IN LAB CONTAINS ADDITIONAL TEST SITE INFORMATION. Performed By: #### L 503.6550, L101.9900, L503.6030, L500.4050, L100.0100, L506.0250, L100.9950, L501.6710, L5000.0012 ####[facility] [address] [place], [address] CBC W/Diff, Automatedon 10- Absolute Lymph 0.86 X10 3/uL Normal 0.83-4.51 [facility] Comment on above: Performed By: #### L 503.6550, L101.9900, L503.6030, L500.4050, L100.0100, L506.0250, L100.9950, L501.6710, L5000.0012 #### [facility] [address] [place], [address] Absolute Neut 2.7 X10 3/uL Normal 2.0-7.7 [facility] Comment on above: Performed By: #### L 503.6550, L101.9900, L503.6030, L500.4050, L100.0100, L506.0250, L100.9950, L501.6710, L5000.0012 #### [facility] [address] [place], [address] Basophils/100 WBC (Bld) 0.5 % Normal 0-1 [facility] Comment on above: Performed By: #### L 503.6550, L101.9900, L503.6030, L500.4050, L100.0100, L506.0250, L100.9950, L501.6710, L5000.0012 #### [facility] [address] [place], [address] Eosinophils/100 WBC (Bld) 3.0 % Normal 0-5 [facility] Comment on above: Performed By: #### L 503.6550, L101.9900, L503.6030, L500.4050, L100.0100, L506.0250, L100.9950, L501.6710, L5000.0012 #### [facility] [address] [place], [address] ( Erythrocyte distribution width (RBC) [Ratio] 13.5 % Normal 11.6-14.6 [facility] Comment on above: Performed By: #### L 503.6550, L101.9900, L503.6030, L500.4050, L100.0100, L506.0250, L100.9950, L501.6710, L5000.0012 #### [facility] [address] [place], [address] (547 Hematocrit (Bld) [Volume fraction] 34.8 % Low 37-47 [facility] Comment on above: Performed By: #### L 503.6550, L101.9900, L503.6030, L500.4050, L100.0100, L506.0250, L100.9950, L501.6710, L5000.0012 #### [facility] [address] [place], [address] (249 Hemoglobin (Bld) [Mass/Vol] 11.2 g/dL Low 12.0-15.0 [facility] Comment on above: Performed By: #### L 503.6550, L101.9900, L503.6030, L500.4050, L100.0100, L506.0250, L100.9950, L501.6710, L5000.0012 #### [facility] [address] [place], [address] IG% 0.200 Normal 0.0-0.9 [facility] Comment on above: Result Comment: IG% - Immature Granulocytes (promyelocytes, myelocytes and metamyelocytes) > 1% indicates that a LEFT SHIFT is Present. Performed By: #### L 503.6550, L101.9900, L503.6030, L500.4050, L100.0100, L506.0250, L100.9950, L501.6710, L5000.0012 #### [facility] [address] [place], [address] Lymphocytes/100 WBC (Bld) 21.2 % Normal 19-41 [facility] Comment on above: Performed By: #### L 503.6550, L101.9900, L503.6030, L500.4050, L100.0100, L506.0250, L100.9950, L501.6710, L5000.0012 #### [facility] [address] [facility] [place], [address] MCH (RBC) [Entitic mass] 31.2 pg Normal 27.0-32.0 [facility] Comment on above: Performed By: #### L 503.6550, L101.9900, L503.6030, L500.4050, L100.0100, L506.0250, L100.9950, L501.6710, L5000.0012 #### [facility] [address], [address] MCHC (RBC) [Mass/Vol] 32.2 g/dL Normal 32-36 [facility] Comment on above: Performed By: #### L 503.6550, L101.9900, L503.6030, L500.4050, L100.0100, L506.0250, L100.9950, L501.6710, L5000.0012 #### [facility] [address] [facility] [place], [address] MCV (RBC) [Entitic vol] 96.9 fL Normal 81-99 [facility] Comment on above: Performed By: #### L 503.6550, L101.9900, L503.6030, L500.4050, L100.0100, L506.0250, L100.9950, L501.6710, L5000.0012 #### [facility] [address] [place], [address] Monocytes/100 WBC (Bld) 7.9 % Normal 0-10 [facility] Comment on above: Performed By: #### L 503.6550, L101.9900, L503.6030, L500.4050, L100.0100, L506.0250, L100.9950, L501.6710, L5000.0012 #### [facility] [address] [place], [address] Neutrophils/100 WBC (Bld) 67.2 % Normal 47-70 [facility] Comment on above: Performed By: #### L 503.6550, L101.9900, L503.6030, L500.4050, L100.0100, L506.0250, L100.9950, L501.6710, L5000.0012 #### [facility] [address] [place], [address] Nucleated RBC (Bld) [#/Vol] 0 10*3/uL Normal 0-5 [facility] Comment on above: Performed By: #### L 503.6550, L101.9900, L503.6030, L500.4050, L100.0100, L506.0250, L100.9950, L501.6710, L5000.0012 #### [facility] [address] [place], [address] Platelet mean volume (Bld) [Entitic vol] 9.5 fL Normal 6.2-12.0 [facility] Comment on above: Performed By: #### L 503.6550, L101.9900, L503.6030, L500.4050, L100.0100, L506.0250, L100.9950, L501.6710, L5000.0012 #### [facility] [address] [place], [address] Platelets (Bld) [#/Vol] 215 10*3/uL Normal 150-450 [facility] Comment on above: Performed By: #### L 503.6550, L101.9900, L503.6030, L500.4050, L100.0100, L506.0250, L100.9950, L501.6710, L5000.0012 #### [facility] [address] [place], [address] RBC (Bld) [#/Vol] 3.59 10*6/uL Low 4.2-5.4 [facility] Comment on above: Performed By: #### L 503.6550, L101.9900, L503.6030, L500.4050, L100.0100, L506.0250, L100.9950, L501.6710, L5000.0012 #### [facility] [address] [place], [address] RDW SD 48.2 fl High 35.1-43.9 [facility] Comment on above: Performed By: #### L 503.6550, L101.9900, L503.6030, L500.4050, L100.0100, L506.0250, L100.9950, L501.6710, L5000.0012 #### [facility] [address] [place], [address] WBC (Bld) [#/Vol] 4.1 10*3/uL Low 4.4-11.0 [facility] Comment on above: Performed By: #### L 503.6550, L101.9900, L503.6030, L500.4050, L100.0100, L506.0250, L100.9950, L501.6710, L5000.0012 #### [facility] [address] [place], [place], [id number] CRPon 01-20-2024 C-REACTIVE PROT < 2.90 Normal 0.0-3.0 [facility] Comment on above: Order Comment: N Result Comment: C-Re active Protein (CRP) provides useful information for the diagnosis, therapy and monitoring of inflammatory processes and associated diseases. For the evaluation of Relative Risk for Cardiovascular Disease, a High Sensitivity CRP (HSCRP) should be ordered. Performed By: #### L 503.6550, L101.9900, L503.6030, L500.4050, L100.0100, L506.0250, L100.9950, L501.6710, L5000.0012 #### [facility] [address] [place], [place], [id number] Comprehensive Metabolic Prof ilon 01-20-2024 Albumin [Mass/Vol] 3.8 g/dL Normal 3.2-5.0 [facility] Comment on above: Order Comment: N Performed By: #### L 503.6550, L101.9900, L503.6030, L500.4050, L100.0100, L506.0250, L100.9950, L501.6710, L5000.0012 #### [facility] [address] [place], [place], [id number] Albumin/Globulin [Mass ratio] 1.1 {ratio} Normal 0.9-2.4 [facility] Comment on above: Order Comment: N Performed By: #### L 503.6550, L101.9900, L503.6030, L500.4050, L100.0100, L506.0250, L100.9950, L501.6710, L5000.0012 #### [facility] [address] [place], [address] ALK P 72 U/L Normal 45-117 [facility] Comment on above: Order Comment: N Performed By: #### L 503.6550, L101.9900, L503.6030, L500.4050, L100.0100, L506.0250, L100.9950, L501.6710, L5000.0012 #### [facility] [address], [address] ALT [Catalytic activity/Vol] 17 U/L Normal 13-56 [facility] Comment on above: Order Comment: N Performed By: #### L 503.6550, L101.9900, L503.6030, L500.4050, L100.0100, L506.0250, L100.9950, L501.6710, L5000.0012 #### [facility] [address] [place], [place], [id number] AST [Catalytic activity/Vol] 16 U/L Normal 15-37 [facility] Comment on above: Order Comment: N Performed By: #### L 503.6550, L101.9900, L503.6030, L500.4050, L100.0100, L506.0250, L100.9950, L501.6710, L5000.0012 #### [facility] [address] [place], [place], [id number] Bilirubin [Mass/Vol] 0.40 mg/dL Normal 0.20-1.00 [facility] Comment on above: Order Comment: N Result Comment: For patients on eltrombopag therapy, use of Dimension [place] TBIL is not recommended. Performed By: #### L 503.6550, L101.9900, L503.6030, L500.4050, L100.0100, L506.0250, L100.9950, L501.6710, L5000.0012 #### [facility] [address] [place], [address] BUN/CRE 21.0 RATIO High 10-20 [facility] Comment on above: Order Comment: N Performed By: #### L 503.6550, L101.9900, L503.6030, L500.4050, L100.0100, L506.0250, L100.9950, L501.6710, L5000.0012 #### [facility] [address] [place], [address] CA,Total 10.4 mg/dL High 8.5-10.1 [facility] Comment on above: Order Comment: N Performed By: #### L 503.6550, L101.9900, L503.6030, L500.4050, L100.0100, L506.0250, L100.9950, L501.6710, L5000.0012 #### [facility] [address] [place], [address] Chloride [Moles/Vol] 107 mmol/L Normal 98-107 [facility] Comment on above: Order Comment: N Performed By: #### L 503.6550, L101.9900, L503.6030, L500.4050, L100.0100, L506.0250, L100.9950, L501.6710, L5000.0012 #### [facility] [address] [place], [address] CO2 [Moles/Vol] 27.0 mmol/L Normal 21.0-32.0 [facility] Comment on above: Order Comment: N Performed By: #### L 503.6550, L101.9900, L503.6030, L500.4050, L100.0100, L506.0250, L100.9950, L501.6710, L5000.0012 #### [facility] [address] [place], [address] Creatinine [Mass/Vol] 0.90 mg/dL Normal 0.55-1.02 [facility] Comment on above: Order Comment: N Result Comment: The validity of the calculated GFR GFRAA in patients over 70 years has not been determined. Clinical correlation is essential. Performed By: #### L 503.6550, L101.9900, L503.6030, L500.4050, L100.0100, L506.0250, L100.9950, L501.6710, L5000.0012 #### [facility] [address] [place], [place], [id number] EST GFR - AA 76 mL/min Normal >60 [facility] Comment on above: Order Comment: N Result Comment: Afri can Ethiopian GFR Calc Performed By: #### L 503.6550, L101.9900, L503.6030, L500.4050, L100.0100, L506.0250, L100.9950, L501.6710, L5000.0012 #### [facility] [address] [place], [address] GAP 6 Normal 5-15 [facility] Comment on above: Order Comment: N Performed By: #### L 503.6550, L101.9900, L503.6030, L500.4050, L100.0100, L506.0250, L100.9950, L501.6710, L5000.0012 #### [facility] [address] [place], [address] GFR/1.73 sq M.predicted among non-blacks MDRD (S/P/Bld) [Vol rate/Area] 63 mL/min/{1.73_m2} Normal >60 [facility] Comment on above: Order Comment: N Result Comment: Non- GFR Calc Performed By: #### L 503.6550, L101.9900, L503.6030, L500.4050, L100.0100, L506.0250, L100.9950, L501.6710, L5000.0012 #### [facility] [address], [address] Globulin (S) [Mass/Vol] 3.6 g/dL Normal 2.2-4.2 [facility] Comment on above: Order Comment: N Performed By: #### L 503.6550, L101.9900, L503.6030, L500.4050, L100.0100, L506.0250, L100.9950, L501.6710, L5000.0012 #### [facility] [address] [place], [address] Glucose [Mass/Vol] 128 mg/dL High 74-106 [facility] Comment on above: Order Comment: N Result Comment: Fast ing Glucose result greater than or equal to 126 mg/dL suggests DIABETES MELLITUS per A.D.A. criteria. Performed By: #### L 503.6550, L101.9900, L503.6030, L500.4050, L100.0100, L506.0250, L100.9950, L501.6710, L5000.0012 #### [facility] [address] [place], [place], [id number] (242) Potassium [Moles/Vol] 4.2 mmol/L Normal 3.5-5.1 [facility] Comment on above: Order Comment: N Performed By: #### L 503.6550, L101.9900, L503.6030, L500.4050, L100.0100, L506.0250, L100.9950, L501.6710, L5000.0012 #### [facility] [address] [place], [place], [id number] (016) Sodium [Moles/Vol] 140 mmol/L Normal 136-145 [facility] Comment on above: Order Comment: N Performed By: #### L 503.6550, L101.9900, L503.6030, L500.4050, L100.0100, L506.0250, L100.9950, L501.6710, L5000.0012 #### [facility] [address] [place], [place], [id number] (814) T PROT 7.4 g/dL Normal 6.4-8.2 [facility] Comment on above: Order Comment: N Performed By: #### L 503.6550, L101.9900, L503.6030, L500.4050, L100.0100, L506.0250, L100.9950, L501.6710, L5000.0012 #### [facility] [address] [place], [place], [id number] (065) Urea nitrogen [Mass/Vol] 19 mg/dL High 7-18 [facility] Comment on above: Order Comment: N Performed By: #### L 503.6550, L101.9900, L503.6030, L500.4050, L100.0100, L506.0250, L100.9950, L501.6710, L5000.0012 #### [facility] [address] [place], [address] Erythrocyte Sed Rateon 01-19 SED RATE 14 mm/hr Normal 0-30 [facility] Comment on above: Performed By: #### L 503.6550, L101.9900, L503.6030, L500.4050, L100.0100, L506.0250, L100.9950, L501.6710, L5000.0012 #### [facility] [address] [place], [place], [id number] Ferritinon 01-20-2024 Ferritin [Mass/Vol] 120 ng/mL Normal 8-252 [facility] Comment on above: Order Comment: N Performed By: #### L 503.6550, L101.9900, L503.6030, L500.4050, L100.0100, L506.0250, L100.9950, L501.6710, L5000.0012 #### [facility] [address] [place], [place], [id number] Folates, (Folic Acid)on 01-04 FOLATES 16.20 ng/mL Normal 3.1-55.4 [facility] Comment on above: Order Comment: N Performed By: #### L 503.6550, L101.9900, L503.6030, L500.4050, L100.0100, L506.0250, L100.9950, L501.6710, L5000.0012 ####[facility] [id number] [place], [place], [address] Iron+Iron Binding Capacityon 01-20-2024 Iron [Mass/Vol] 62 ug/dL Normal 50-170 [facility] Comment on above: Order Comment: N Performed By: #### L 503.6550, L101.9900, L503.6030, L500.4050, L100.0100, L506.0250, L100.9950, L501.6710, L5000.0012 #### [facility] [address] [place], [place], [id number] IRON SATURATION 18.6 Normal 15.0-55.0 [facility] Comment on above: Order Comment: N Performed By: #### L 503.6550, L101.9900, L503.6030, L500.4050, L100.0100, L506.0250, L100.9950, L501.6710, L5000.0012 #### [facility] [address] [place], [place], [address] TIBC 333 ug/dL Normal 250-450 [facility] Comment on above: Order Comment: N Performed By: #### L 503.6550, L101.9900, L503.6030, L500.4050, L100.0100, L506.0250, L100.9950, L501.6710, L5000.0012 #### [facility] [address] [place], [address] Oncology Visit Reporton 01-04 Oncology Visit Report [facility] [address] [place], [place] [address] OFFICE VISIT Date of Service: 01/20/24 1140 MR#: [id number] Acct: [id number] Name: ADRIANNA SIDDIQUI JOHN Rep #: [id number] : 1935 From: Jerardo Hannah MD Age/Sex: 88/F Location: [facility] [place] [facility] [place] Status: Signed HPI Subjective Date of Service 01/20/24 Chief Complaint F/u for anemia History of Present Illness 88-year-old woman was found to have anemia, started on oral iron and referred for further evaluation and management. She is on oral Iron and Vitamin B12. Had blood work and comes for follow up. [facility] Medical History PAOD (peripheral arterial occlusive disease) Macular degeneration Iron deficiency anemia History of stroke Lower extremity neuropathy Carpal tunnel syndrome of left wrist Chronic anemia Polyneuropathy Essential (primary) hypertension CVA (cerebral vascular accident) Hyperlipemia Palpitations Edema Patent foramen ovale Debility Hypothyroidism DM type 2 (diabetes mellitus, type 2) Hypertensive urgency (02/05/20) Left arm weakness Paresthesias Surgical History H/O section H/O tooth extraction Cataract H/O tubal ligation History of dilatation and curettage Family History Mother Hypertension Father Emphysema/COPD Social History Smoking Status: Never smoker second hand exposure: No alcohol intake: current alcohol intake frequency: holidays/special occasions only substance use type: does not use Intake Vital Signs 10/07/23 09:04 10/28/23 10:52 01/20/24 11:41 Height 5 ft 2 in 5 ft 1 in 5 ft 1 in Weight: 64.864 kg BMI 27.0 BP 138/67 H Blood Pressure Location Rt brachial Position Sitting Respiration 18 Pulse 67 Pulse Source Monitor Temp 98.4 F Temperature Source Temporal Artery Pulse Oximetry (%) 98 Oxygen Delivery Method room air Intake Is patient in pain?: No Allergies levomefolate calcium (From Metanx) Allergy (Unknown, Verified 01/20/24 11:47) Unknown mecobalamin (From Metanx) Allergy (Unknown, Verified 01/20/24 11:47) Unknown pyridoxal phosphate (From Metanx) Allergy (Unknown, Verified 01/20/24 11:47) Unknown Penicillins Allergy (Verified 01/20/24 11:47) Pain in joints Sulfa (Sulfonamide Antibiotics) Allergy (Verified 01/20/24 11:47) Hives Medications ???Medication ???Instructions ???Recorded ???Confirmed ???Type amlodipine 5 mg tablet 5 mg PO DAILY blood perssure 02/05/20 01/20/24 History gabapentin 300 mg capsule 300 mg PO QHS neuropathy 02/05/20 01/20/24 History meloxicam 15 mg tablet 15 mg PO DAILY 02/05/20 01/20/24 History clopidogrel 75 mg tablet 75 mg PO DAILY #90 tabs 02/06/20 01/20/24 Rx Left wrist splint #1 ea 02/16/20 01/20/24 Rx latanoprost 0.005 % eye drops 1 drp ophthalmic (eye) DAILY 09/24/23 01/20/24 History rosuvastatin 40 mg tablet 40 mg PO DAILY 09/24/23 01/20/24 History timolol 0.5 % eye drops 1 drp ophthalmic (eye) DAILY 09/24/23 01/20/24 History levothyroxine 88 mcg tablet 88 mcg PO DAILY thyroid 09/30/23 01/20/24 History metformin 500 mg tablet 500 mg PO DAILY diabetes 09/30/23 01/20/24 History omeprazole 20 mg capsule,delayed 20 mg PO DAILY PRN 09/30/23 01/20/24 History release oxycodone 5 mg capsule 5 mg PO Q6H PRN pain 3 days #12 10/28/23 01/20/24 Rx caps Have you fallen in the past year?: No Central Venous Access Central Venous Access: No Laboratory Results 01/20/24 10:22 WBC 4.1 L Hgb 11.2 L Hct 34.8 L Plt Count 215 Retic Count 1.70 H Sodium 140 Potassium 4.2 Chloride 107 Carbon Dioxide 27.0 BUN 19 H Creatinine 0.90 Iron 62 TIBC 333 Iron Saturation 18.6 Ferritin 120 Total Bilirubin 0.40 AST 16 ALT 17 Alkaline Phosphatase 72 C-React Prot Ext Range < 2.90 Total Protein 7.4 Albumin 3.8 Globulin 3.6 Folate 16.20 Exam Physical Exam Narrative Elderly woman Const alert, oriented x3 and no apparent distress Coding Level of Care Code Off vis,est,level 3 Exam Problem Focused Diagnoses Chronic anemia D64.9 Assessment and Plan Assessment and Plan (1) Chronic anemia: Status: Chronic Comment: Persistent chronic anemia on Oral Iron. Hgb was 11.2 on 01/20/2024, Iron profile is normal, Vit B12 was low normal. FOBT was normal. Discussed findings with Pt and Daughter. Plan: To continue oral iron supplement and Vitamin B12. To reassess in 12 months. RTC 12 monts Plan Details Follow Up: 12 Months Clinical Quality Measures Falls Risk Screening/Assistive Devices Have you fal (more content not included)... Normal [facility] Retic Panelon 01-20-2024 IM RET FRACTION 13.40 Normal 3.00-15.90 [facility] Comment on above: Performed By: #### L 503.6550, L101.9900, L503.6030, L500.4050, L100.0100, L506.0250, L100.9950, L501.6710, L5000.0012 #### [facility] [address] [place], [place], [id number] RET-HE 32.8 pg Normal 30-35 [facility] Comment on above: Performed By: #### L 503.6550, L101.9900, L503.6030, L500.4050, L100.0100, L506.0250, L100.9950, L501.6710, L5000.0012 #### [facility] [address] [place], [place], [id number] Retic Count 1.70 High 0.5-1.5 [facility] Comment on above: Performed By: #### L 503.6550, L101.9900, L503.6030, L500.4050, L100.0100, L506.0250, L100.9950, L501.6710, L5000.0012 #### [facility] [address] [place], [address] Absolute lymphocyte countOrd ered By: Dr. Morelos on 07-23-2022 Lymphocytes Auto (Unsp spec) [#/Vol] 1.14 10*3/uL 0.83-4.51 [facility] Basophil percentageOrdered B y: Dr. Morelos on 07-23-2022 Basophils/100 WBC (Bld) 0.6 % 0-1 [facility] Bilirubin [Mass/Vol] 0.60 mg/dL 0.20-1.00 [facility] Comment on above: For patients on eltr ombopag therapy, use of Dimension [place] TBIL is not recommended. Chloride [Moles/Vol] 105 mmol/L 98-107 [facility] Eosinophils/100 WBC (Bld) 4.0 % 0-5 [facility] Glucose [Mass/Vol] 144 mg/dL 74-106 [facility] Comment on above: Fasting Glucose resu lt greater than or equal to 126 mg/dL suggests DIABETES MELLITUS per A.D.A. criteria. Neutrophils (Bld) [#/Vol] 3.2 10*3/uL 2.0-7.7 [facility] Neutrophils/100 WBC (Bld) 64.0 % 47-70 [facility] Potassium [Moles/Vol] 4.2 mmol/L 3.5-5.1 [facility] Protein [Mass/Vol] 7.5 g/dL 6.4-8.2 [facility] Sodium [Moles/Vol] 137 mmol/L 136-145 [facility] WBC (Bld) [#/Vol] 5.0 10*3/uL 4.4-11.0 [facility] Blood erythrocytes count (nu mber/volume)Ordered By: Dr. Morelos on 07-23-2022 RBC (Bld) [#/Vol] 3.99 10*6/uL 4.2-5.4 [facility] Blood hemoglobin measurement (mass/volume)Ordered By: Dr. Morelos on 07-23-2022 Hemoglobin (Bld) [Mass/Vol] 12.1 g/dL 12.0-15.0 [facility] Blood lymphocytes/100 leukoc ytesOrdered By: Dr. Morelos on 07-23-2022 Lymphocytes/100 WBC (Bld) 22.7 % 19-41 [facility] Blood monocytes/100 leukocyt esOrdered By: Dr. Morelos on 07-23-2022 Monocytes/100 WBC (Bld) 8.5 % 0-10 [facility] Blood platelet mean volumeOr dered By: Dr. Morelos on 07-23-2022 Platelet mean volume (Bld) [Entitic vol] 10.0 fL 6.2-12.0 [facility] Determination of erythrocyte mean corpuscular volume (MCV)Ordered By: Dr. Morelos on 07-23-2022 MCV (RBC) [Entitic vol] 96.5 fL 81-99 [facility] Hematocrit Auto (Bld) [Volum e fraction]Ordered By: Dr. Morelos on 07-23-2022 Hematocrit (Bld) [Volume fraction] 38.5 % 37-47 [facility] - Chemistry and C hemistry - challengeOrdered By: Dr. Morelos on 07-23-2022 ALP [Catalytic activity/Vol] 78 U/L 45-117 [facility] ALT [Catalytic activity/Vol] 31 U/L 13-56 [facility] CO2 [Moles/Vol] 26.0 mmol/L 21.0-32.0 [facility] Globulin (S) [Mass/Vol] 3.5 g/dL 2.2-4.2 [facility] Urea nitrogen/Creatinine [Mass ratio] 19.6 mg/mg 10-20 [facility] - Hematology and Cell countsOrdered By: Dr. Morelos on 07-23-2022 Erythrocyte distribution width (RBC) [Entitic vol] 47.1 fL 35.1-43.9 [facility] Erythrocyte distribution width (RBC) [Ratio] 13.3 % 11.6-14.6 [facility] Immature granulocytes/100 WBC (Bld) 0.200 % 0.0-0.9 [facility] Comment on above: IG% - Immature Granu locytes (promyelocytes, myelocytes and metamyelocytes) > 1% indicates that a LEFT SHIFT is Present. MCH (RBC) [Entitic mass] 30.3 pg 27.0-32.0 [facility] Nucleated RBC/100 WBC (Bld) [Ratio] 0 % 0-5 [facility] Auto (RBC) [Mass/Vol]Or dered By: Dr. Morelos on 07-23-2022 MCHC (RBC) [Mass/Vol] 31.4 g/dL 32-36 [facility] No Panel InformationOrdered By: Dr. Morelos on 07-23-2022 Estimated GFR (MDRD) Amer 70 mL/min >60 [facility] Comment on above: GFR Calc Estimated GFR (MDRD) Non-Af Amer 58 mL/min >60 [facility] Comment on above: Non- GFR Calc Thyroid Stimulating Hormone (TSH) 1.53 uIU/mL 0.358-3.74 [facility] Vitamin D 25-Hydroxy 54.7 ng/mL [facility] Comment on above: Vitamin D 25(OH) Sta tus Range Deficiency <20 ng/mL (50nmol/L) Insufficiency 20 - 30 ng/mL (50 - 75 nmol/L) Sufficiency 30 - 100 ng/mL (75 - 250 nmol/L) Toxicity >100 ng/mL (>250 nmol/L) Platelets bldOrdered By: Dr. Morelos on 07-23-2022 Platelets (Bld) [#/Vol] 247 10*3/uL 150-450 [facility] Serum or plasma albumin casandra urement (mass/volume)Ordered By: Dr. Morelos on 07-23-2022 Albumin [Mass/Vol] 4.0 g/dL 3.2-5.0 [facility] Serum or plasma albumin/glob ulin mass ratioOrdered By: Dr. Morelos on 07-23-2022 Albumin/Globulin [Mass ratio] 1.1 {ratio} 0.9-2.4 [facility] Serum or plasma calcium casandra urement (mass/volume)Ordered By: Dr. Morelos on 07-23-2022 Calcium [Mass/Vol] 9.8 mg/dL 8.5-10.1 [facility] Serum or plasma creatinine m easurement (mass/volume)Ordered By: Dr. Morelos on 07-23-2022 Creatinine [Mass/Vol] 0.97 mg/dL 0.55-1.02 [facility] Comment on above: The validity of the calculated GFR & GFRAA in patients over 70 years has not been determined. Clinical correlation is essential. Serum or plasma urea nitroge n measurement (mass/volume)Ordered By: Dr. Morelos on 07-23-2022 Urea nitrogen [Mass/Vol] 19 mg/dL 7-18 [facility] Thin prep Papanicolaou smear with manual screeningOrdered By: Dr. Morelos on 07-23-2022 Thin prep Papanicolaou smear with manual screening 18 U/L 15-37 [facility] Thin prep Papanicolaou smear with manual screening 6 5-15 [facility] Absolute lymphocyte counton 01-22-2022 Lymphocytes Auto (Unsp spec) [#/Vol] 1.23 10*3/uL 0.83-4.51 [facility] Work Phone: Basophil percentageon 2021 Basophils/100 WBC (Bld) 0.7 % 0-1 [facility] Work Phone: Bilirubin [Mass/Vol] 0.50 mg/dL 0.20-1.00 [facility] Work Phone: Comment on above: For patients on eltr ombopag therapy, use of Dimension [place] TBIL is not recommended. Chloride [Moles/Vol] 104 mmol/L 98-107 [facility] Work Phone: Eosinophils/100 WBC (Bld) 3.2 % 0-5 [facility] Work Phone: Glucose [Mass/Vol] 136 mg/dL 74-106 [facility] Work Phone: Comment on above: Fasting Glucose resu lt greater than or equal to 126 mg/dL suggests DIABETES MELLITUS per A.D.A. criteria. Neutrophils (Bld) [#/Vol] 3.7 10*3/uL 2.0-7.7 [facility] Work Phone: Neutrophils/100 WBC (Bld) 65.2 % 47-70 [facility] Work Phone: Potassium [Moles/Vol] 4.1 mmol/L 3.5-5.1 [facility] Work Phone: Protein [Mass/Vol] 7.7 g/dL 6.4-8.2 [facility] Work Phone: [phone] Sodium [Moles/Vol] 140 mmol/L 136-145 [facility] Work Phone: [phone] WBC (Bld) [#/Vol] 5.7 10*3/uL 4.4-11.0 [facility] Work Phone: [phone] Blood erythrocytes count (nu mber/volume)on 01-22-2022 RBC (Bld) [#/Vol] 3.83 10*6/uL 4.2-5.4 [facility] Work Phone: [phone] Blood hemoglobin measurement (mass/volume)on 01-22-2022 Hemoglobin (Bld) [Mass/Vol] 11.6 g/dL 12.0-15.0 [facility] Work Phone: [phone] Blood lymphocytes/100 leukoc yteson 01-22-2022 Lymphocytes/100 WBC (Bld) 21.7 % 19-41 [facility] Work Phone: [phone] Blood monocytes/100 leukocyt eson 01-22-2022 Monocytes/100 WBC (Bld) 8.8 % 0-10 [facility] Work Phone: Blood platelet mean volumeon 01-22-2022 Platelet mean volume (Bld) [Entitic vol] 10.2 fL 6.2-12.0 [facility] Work Phone: [phone] Determination of erythrocyte mean corpuscular volume (MCV)on 01-22-2022 MCV (RBC) [Entitic vol] 96.3 fL 81-99 [facility] Work Phone: Hematocrit Auto (Bld) [Volum e fraction]on 01-22-2022 Hematocrit (Bld) [Volume fraction] 36.9 % 37-47 [facility] Work Phone: Laboratory - Chemistry and C hemistry - challengeon 01-22-2022 ALP [Catalytic activity/Vol] 72 U/L 45-117 [facility] Work Phone: [phone] ALT [Catalytic activity/Vol] 25 U/L 13-56 [facility] Work Phone: [phone] CO2 [Moles/Vol] 27.0 mmol/L 21.0-32.0 [facility] Work Phone: [phone] Globulin (S) [Mass/Vol] 3.5 g/dL 2.2-4.2 [facility] Work Phone: [phone] Urea nitrogen/Creatinine [Mass ratio] 18.1 mg/mg 10-20 [facility] Work Phone: [phone] Laboratory - Hematology and Cell countson 01-22-2022 Erythrocyte distribution width (RBC) [Entitic vol] 46.6 fL 35.1-43.9 [facility] Work Phone: [phone] Erythrocyte distribution width (RBC) [Ratio] 13.3 % 11.6-14.6 [facility] Work Phone: [phone] Immature granulocytes/100 WBC (Bld) 0.400 % 0.0-0.9 [facility] Work Phone: [phone] Comment on above: IG% - Immature Granu locytes (promyelocytes, myelocytes and metamyelocytes) > 1% indicates that a LEFT SHIFT is Present. MCH (RBC) [Entitic mass] 30.3 pg 27.0-32.0 [facility] Work Phone: [phone] [phone] RBC/100 WBC (Bld) [Ratio] 0 % 0-5 [facility] Work Phone: [phone] MCHC Auto (RBC) [Mass/Vol]on 01-22-2022 MCHC (RBC) [Mass/Vol] 31.4 g/dL 32-36 [facility] Work Phone: [phone] Panel Informationon 01-22 Estimated GFR (MDRD) Amer 64 mL/min >60 [facility] Work Phone: [phone] Comment on above: GFR Calc Estimated GFR (MDRD) Non-Af Amer 53 mL/min >60 [facility] Work Phone: [phone] Comment on above: Non- GFR Calc Thyroid Stimulating Hormone (TSH) 1.20 uIU/mL 0.358-3.74 [facility] Work Phone: Vitamin D 25-Hydroxy 61.7 ng/mL [facility] Work Phone: Comment on above: Vitamin D 25(OH) Sta tus Range Deficiency <20 ng/mL (50nmol/L) Insufficiency 20 - 30 ng/mL (50 - 75 nmol/L) Sufficiency 30 - 100 ng/mL (75 - 250 nmol/L) Toxicity >100 ng/mL (>250 nmol/L) Platelets bldon 01-22-2022 Platelets (Bld) [#/Vol] 236 10*3/uL 150-450 [facility] Work Phone: Serum or plasma albumin casandra urement (mass/volume)on 01-22-2022 Albumin [Mass/Vol] 4.2 g/dL 3.2-5.0 [facility] Work Phone: Serum or plasma albumin/glob ulin mass ratioon 01-22-2022 Albumin/Globulin [Mass ratio] 1.2 {ratio} 0.9-2.4 [facility] Work Phone: Serum or plasma calcium casandra urement (mass/volume)on 01-22-2022 Calcium [Mass/Vol] 10.0 mg/dL 8.5-10.1 [facility] Work Phone: Serum or plasma creatinine m easurement (mass/volume)on 01-22-2022 Creatinine [Mass/Vol] 1.05 mg/dL 0.55-1.02 [facility] Work Phone: Comment on above: The validity of the calculated GFR & GFRAA in patients over 70 years has not been determined. Clinical correlation is essential. Serum or plasma urea nitroge n measurement (mass/volume)on 01-22-2022 Urea nitrogen [Mass/Vol] 19 mg/dL 7-18 [facility] Work Phone: Thin prep Papanicolaou smear with manual screeningon 01-22-2022 Thin prep Papanicolaou smear with manual screening 18 U/L 15-37 [facility] Work Phone: Thin prep Papanicolaou smear with manual screening 9 5-15 [facility] Work Phone: CNPAlyce 04-23-2017 CNPN Telephone ([facility]) ADRIANNA SIDDIQUI ([id number]) 1935 FDate Time Provider Department04/23/17 HA PATRICK [facility] During your visit today, we recorded the following information about you:Dennis Liang Ma 04/23/2017 11:44 AM SignedSTAMP Initiative-attempted to contact patient-unsuccessfulLe ft voicemail message to please call office to schedule follow-upDennis Liang Ma 04/23/2017 2:44 PM SignedPatient called to report that she has moved and has a new PCPDr. Katherine removed from patient per patient requestToashish Barry As of Date: 04/23/2017 Noted Allergy ReactionPENICILLINS 08/04/2006SULFA (SULFONAMIDE ANTIBIOTICS) 08/04/2006Date Reviewed: 02/01/2016Reviewed by: Cathryn Crowell Ma - Fully AssessedReason for Visit: STAMP Initiative [Other]Prescriptions as of 04/23/2017 Sig: ATORVASTATIN 20 MG TABLET TAKE 1 TABLET BY MOUTH ONCE D* AMLODIPINE 5 MG TABLET TAKE 1 TABLET BY MOUTH ONCE D* TRIAMCINOLONE ACETONIDE 0.1 %* APPLY 1 APPLICATION TO AFFECT* LEVOTHYROXINE 100 MCG TABLET Take 1 tablet by mouth once d* IRBESARTAN 150 MG TABLET Take 1 tablet by mouth once d* GLIMEPIRIDE 1 MG TABLET Take 1 tablet by mouth once d* SITAGLIPTIN 100 MG TABLET Take 1 tablet by mouth once d* LEVOTHYROXINE 100 MCG TABLET Take 1 tablet by mouth once d* METFORMIN ER 500 MG TABLET,EX* Take 2 tablets by mouth daily* GABAPENTIN 300 MG CAPSULE Take 1 capsule by mouth three* GENTLE LAXATIVE 5 MG TABLET,D* METOCLOPRAMIDE 10 MG TABLET MELOXICAM 15 MG TABLET Take 1 tablet by mouth once d* BLOOD SUGAR DIAGNOSTIC STRIPS Test once daily Dx: E11.9 No* TIMOLOL MALEATE 0.5 % EYE GEL* OMEPRAZOLE 20 MG CAPSULE,TULIO* Take 20 mg by mouth once annamaria* LATANOPROST 0.005 % EYE DROPS OS-AMRITA 500 + D3 500 MG(1,250 * qd ASPIRIN 81 MG TABLET Take one(1) tablet daily.Problem List As Of Date 04/23/2017 Noted Resolved Type II or unspecified type diabetes mellitus w*INVALID FOR*08/25/2015 VARICOSE VEINS NEC [456] INVALID FOR* Hypothyroid [E03.9] INVALID FOR*08/25/2015 Hyperlipidemia [E78.5] INVALID FOR* HTN (hypertension) [I10] INVALID FOR* Type 2 diabetes mellitus without complication (*INVALID FOR* DM (diabetes mellitus) (HCC) [E11.9] 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 OBSOLETEon 04-21-2017 OBSOLETE Refill ([facility]) ADRIANNA SIDDIQUI ([id number]) 1935 FDate Time Provider Department04/21/17 [facility] During your visit today, we recorded the following information about you:Michelle West 04/21/2017 9:12 AM SignedPatient phones requesting refills as follows:Pending Prescriptions Disp Refills FREESTYLE LITE STRIPS 100 Strip 1 Sig: TEST ONCE DAILY DEEPTI: Yes Please review and advise.Michelle WestAllergies As of Date: 04/21/2017 Noted Allergy ReactionPENICILLINS 08/04/2006SULFA (SULFONAMIDE ANTIBIOTICS) 08/04/2006Date Reviewed: 02/01/2016Reviewed by: Cathryn Crowell Ma - Fully AssessedReason for Visit: Refill Request [94]Order(s):FREESTYLE LITE STRIPS test stripTEST ONCE DAILYDisp: 100 StripRfl: 1Prescriptions as of 04/21/2017 Sig: FREESTYLE LITE STRIPS TEST ONCE DAILY ATORVASTATIN 20 MG TABLET TAKE 1 TABLET BY MOUTH ONCE D* AMLODIPINE 5 MG TABLET TAKE 1 TABLET BY MOUTH ONCE D* TRIAMCINOLONE ACETONIDE 0.1 %* APPLY 1 APPLICATION TO AFFECT* LEVOTHYROXINE 100 MCG TABLET Take 1 tablet by mouth once d* IRBESARTAN 150 MG TABLET Take 1 tablet by mouth once d* GLIMEPIRIDE 1 MG TABLET Take 1 tablet by mouth once d* SITAGLIPTIN 100 MG TABLET Take 1 tablet by mouth once d* LEVOTHYROXINE 100 MCG TABLET Take 1 tablet by mouth once d* METFORMIN ER 500 MG TABLET,EX* Take 2 tablets by mouth daily* GABAPENTIN 300 MG CAPSULE Take 1 capsule by mouth three* GENTLE LAXATIVE 5 MG TABLET,D* METOCLOPRAMIDE 10 MG TABLET MELOXICAM 15 MG TABLET Take 1 tablet by mouth once d* TIMOLOL MALEATE 0.5 % EYE GEL* OMEPRAZOLE 20 MG CAPSULE,TULIO* Take 20 mg by mouth once annamaria* LATANOPROST 0.005 % EYE DROPS OS-AMRITA 500 + D3 500 MG(1,250 * qd ASPIRIN 81 MG TABLET Take one(1) tablet daily.Problem List As Of Date 04/21/2017 Noted Resolved Type II or unspecified type diabetes mellitus w*INVALID FOR*08/25/2015 VARICOSE VEINS NEC [456] INVALID FOR* Hypothyroid [E03.9] INVALID FOR*08/25/2015 Hyperlipidemia [E78.5] INVALID FOR* HTN (hypertension) [I10] INVALID FOR* Type 2 diabetes mellitus without complication (*INVALID FOR* DM (diabetes mellitus) (HCC) [E11.9] Chronic lymphocytic thyroiditis [E06.3] Nontoxic uninodular goiter [E04.1]Prescriptions ordered this encounter Disp Refills Start End FREESTYLE LITE STRIPS 100 * 1 04/23/2017 Sig: TEST ONCE DAILYMedications Discontinued During This Encounter blood sugar diagnostic (FREESTYLE TE* 100 * 3 03/05/2015 04/23/2017 Cmt: Non insulin requiring Sig: Test once daily Dx: E11.9 Not on insulin. Disc: Reason for discontinue is not on file. Status:Closed by HA PATRICK MD on 04/23/17 [facility] OBSOLETEon 04-17-2017 OBSOLETE Refill ([facility]) ADRIANNA SIDDIQUI ([id number]) 1935 FDa Time Provider Department04/17/17 HA PATRICK [facility] During your visit today, we recorded the following information about you:Mary Anne Iqbal Psr 04/17/2017 8:48 AM SignedPharmacy calls for medication refill today.Pending Prescriptions Disp Refills ATORVASTATIN 20 MG TABLET 90 tablet 2 Sig: TAKE 1 TABLET BY MOUTH ONCE DAILY. DEEPTI: Yes AMLODIPINE 5 MG TABLET 90 tablet 2 Sig: TAKE 1 TABLET BY MOUTH ONCE DAILY. DEEPTI: YesPharmacy has been captured: Yes.Mary Anne Farida PsrAllergies As of Date: 04/17/2017 Noted Allergy ReactionPENICILLINS 08/04/2006SULFA (SULFONAMIDE ANTIBIOTICS) 08/04/2006Date Reviewed: 02/01/2016Reviewed by: Cathryn Crowell Ma - Fully AssessedReason for Visit: Refill Request [94]Order(s):atorvasta tin (LIPITOR) 20 mg tabletTAKE 1 TABLET BY MOUTH ONCE DAILY.Disp: 90 tabletRfl: 2 amLODIPine (NORVASC) 5 mg tabletTAKE 1 TABLET BY MOUTH ONCE DAILY.Disp: 90 tabletRfl: 2Prescriptions as of 04/17/2017 Sig: ATORVASTATIN 20 MG TABLET TAKE 1 TABLET BY MOUTH ONCE D* AMLODIPINE 5 MG TABLET TAKE 1 TABLET BY MOUTH ONCE D* TRIAMCINOLONE ACETONIDE 0.1 %* APPLY 1 APPLICATION TO AFFECT* LEVOTHYROXINE 100 MCG TABLET Take 1 tablet by mouth once d* IRBESARTAN 150 MG TABLET Take 1 tablet by mouth once d* GLIMEPIRIDE 1 MG TABLET Take 1 tablet by mouth once d* SITAGLIPTIN 100 MG TABLET Take 1 tablet by mouth once d* LEVOTHYROXINE 100 MCG TABLET Take 1 tablet by mouth once d* METFORMIN ER 500 MG TABLET,EX* Take 2 tablets by mouth daily* GABAPENTIN 300 MG CAPSULE Take 1 capsule by mouth three* GENTLE LAXATIVE 5 MG TABLET,D* METOCLOPRAMIDE 10 MG TABLET MELOXICAM 15 MG TABLET Take 1 tablet by mouth once d* BLOOD SUGAR DIAGNOSTIC STRIPS Test once daily Dx: E11.9 No* TIMOLOL MALEATE 0.5 % EYE GEL* OMEPRAZOLE 20 MG CAPSULE,TULIO* Take 20 mg by mouth once annamaria* LATANOPROST 0.005 % EYE DROPS OS-AMRITA 500 + D3 500 MG(1,250 * qd ASPIRIN 81 MG TABLET Take one(1) tablet daily.Problem List As Of Date 04/17/2017 Noted Resolved Type II or unspecified type diabetes mellitus w*INVALID FOR*08/25/2015 VARICOSE VEINS NEC [456] INVALID FOR* Hypothyroid [E03.9] INVALID FOR*08/25/2015 Hyperlipidemia [E78.5] INVALID FOR* HTN (hypertension) [I10] INVALID FOR* Type 2 diabetes mellitus without complication (*INVALID FOR* DM (diabetes mellitus) (HCC) [E11.9] Chronic lymphocytic thyroiditis [E06.3] Nontoxic uninodular goiter [E04.1]Prescriptions ordered this encounter Disp Refills Start End ATORVASTATIN 20 MG TABLET 90 t* 2 04/17/2017 Sig: TAKE 1 TABLET BY MOUTH ONCE DAILY. AMLODIPINE 5 MG TABLET 90 t* 2 04/17/2017 Sig: TAKE 1 TABLET BY MOUTH ONCE DAILY.Medications Discontinued During This Encounter atorvastatin (LIPITOR) 20 mg tablet 90 t* 3 01/28/2016 04/17/2017 Route: ORAL Sig: Take 1 tablet by mouth once daily. Disc: Reason for discontinue is not on file. amLODIPine (NORVASC) 5 mg tablet 90 t* 3 01/28/2016 04/17/2017 Route: ORAL Sig: Take 1 tablet by mouth once daily. Disc: Reason for discontinue is not on file. Status:Closed by HA PATRICK MD on 04/17/[address] [facility] OBSOLETEon 04-07-2017 OBSOLETE Refill ([facility]) ADRIANNA SIDDIQUI ([id number]) 1935 FDate Time Provider Department04/07/17 JAMIL GARCIA ([facility]) [facility] During your visit today, we recorded the following information about you:Lexy Alvarado Psr 04/07/2017 3:03 PM SignedPatient phones requesting refills as follows:Pending Prescriptions Disp Refills TRIAMCINOLONE ACETONIDE 0.1 % TOPICAL CREAM 90 g 0 Sig: APPLY 1 APPLICATION TO AFFECTED AREA TWICE DAILY. DEEPTI: Yes Please review and advise.Lexy Alvarado PsrAllergies As of Date: 04/07/2017 Noted Allergy ReactionPENICILLINS 08/04/2006SULFA (SULFONAMIDE ANTIBIOTICS) 08/04/2006Date Reviewed: 02/01/2016Reviewed by: Cathryn Crowell Ma - Fully AssessedReason for Visit: Refill Request [94]Order(s):triamcino lone acetonide (KENALOG) 0.1 % creamAPPLY 1 APPLICATION TO AFFECTED AREA TWICE DAILY.Disp: 90 gRfl: 0Prescriptions as of 04/07/2017 Sig: TRIAMCINOLONE ACETONIDE 0.1 %* APPLY 1 APPLICATION TO AFFECT* LEVOTHYROXINE 100 MCG TABLET Take 1 tablet by mouth once d* IRBESARTAN 150 MG TABLET Take 1 tablet by mouth once d* GLIMEPIRIDE 1 MG TABLET Take 1 tablet by mouth once d* SITAGLIPTIN 100 MG TABLET Take 1 tablet by mouth once d* LEVOTHYROXINE 100 MCG TABLET Take 1 tablet by mouth once d* AMLODIPINE 5 MG TABLET Take 1 tablet by mouth once d* METFORMIN ER 500 MG TABLET,EX* Take 2 tablets by mouth daily* GABAPENTIN 300 MG CAPSULE Take 1 capsule by mouth three* ATORVASTATIN 20 MG TABLET Take 1 tablet by mouth once d* GENTLE LAXATIVE 5 MG TABLET,D* METOCLOPRAMIDE 10 MG TABLET MELOXICAM 15 MG TABLET Take 1 tablet by mouth once d* BLOOD SUGAR DIAGNOSTIC STRIPS Test once daily Dx: E11.9 No* TIMOLOL MALEATE 0.5 % EYE GEL* OMEPRAZOLE 20 MG CAPSULE,TULIO* Take 20 mg by mouth once annamaria* LATANOPROST 0.005 % EYE DROPS OS-AMRITA 500 + D3 500 MG(1,250 * qd ASPIRIN 81 MG TABLET Take one(1) tablet daily.Problem List As Of Date 04/07/2017 Noted Resolved Type II or unspecified type diabetes mellitus w*INVALID FOR*08/25/2015 VARICOSE VEINS NEC [456] INVALID FOR* Hypothyroid [E03.9] INVALID FOR*08/25/2015 Hyperlipidemia [E78.5] INVALID FOR* HTN (hypertension) [I10] INVALID FOR* Type 2 diabetes mellitus without complication (*INVALID FOR* DM (diabetes mellitus) (HCC) [E11.9] Chronic lymphocytic thyroiditis [E06.3] Nontoxic uninodular goiter [E04.1]Prescriptions ordered this encounter Disp Refills Start End TRIAMCINOLONE ACETONIDE 0.1 % TOPICA* 90 g 0 04/07/2017 Sig: APPLY 1 APPLICATION TO AFFECTED AREA TWICE DAILY. Status:Closed by HA PATRICK MD on 04/07/[address] [facility] Vital Signs Date Time Vital Sign Value Performing Clinician Brennan gaytan 12-20-2024 10:29-0400 Body temperature 98 [degF] Dr. Ap Morelos MD Work Phone: [facility] 12-20-2024 10:29-0400 Diastolic blood pressure 59 mm[Hg] Dr. Ap Morelos MD Work Phone: [facility] 12-20-2024 10:29-0400 Heart rate 97 /min Dr. Ap Morelos MD Work Phone: [facility] 12-20-2024 10:29-0400 Respiratory rate 16 /min Dr. Ap Morelos MD Work Phone: [facility] 12-20-2024 10:29-0400 SaO2% (BldA) [Mass fraction] 97 % Dr. Ap Morelos MD Work Phone: [facility] 12-20-2024 10:29-0400 Systolic blood pressure 145 mm[Hg] Dr. Ap Morelos MD Work Phone: [phone] [place] [address] 12-20-2024 09:10-0400 Body mass index (BMI) [Ratio] 26.8 kg/m2 Dr. Ap Morelos MD Work Phone: [phone] [place] [address] 12-20-2024 09:10-0400 Body weight 61.[address] Ap Morelos MD Work Phone: [phone] [place] [address] 12-20-2024 09:08-0400 Body height 152.[address] Ap Morelos MD Work Phone: [phone] [place] [address] 06-29-2023 12:59-0400 Body temperature 98.2 [degF] Dr. Ap Morelos Work Phone: [phone] [place] [address] 06-29-2023 12:59-0400 Body weight 65.[address] Ap Morelos Work Phone: [phone] [place] [address] 06-29-2023 12:59-0400 Diastolic blood pressure 68 mm[Hg] Dr. Ap Morelos Work Phone: [phone])201-281617 [place] [address] 06-29-2023 12:59-0400 Heart rate 94 /min Dr. Ap Morelos Work Phone: [phone] [place] [address] 06-29-2023 12:59-0400 Respiratory rate 14 /min Dr. Ap Morelos Work Phone: [phone] [place] [address] 06-29-2023 12:59-0400 SaO2% (BldA) [Mass fraction] 96 % Dr. Ap Morelos Work Phone: [phone])[phone] [place] [address] 06-29-2023 12:59-0400 Systolic blood pressure 150 mm[Hg] Dr. Ap Morelos Work Phone: [phone] [place] [address] 07-21-2022 12:41-0400 Body height 157.[address] Ap Morelos Work Phone: [phone] [place] [address] 07-21-2022 12:41-0400 Body mass index (BMI) [Ratio] 27.1 kg/m2 Dr. Ap Morelos Work Phone: [facility] 07-21-2022 12:41-0400 Body temperature 97.8 [degF] Dr. Ap Morelos Work Phone: [facility] 07-21-2022 12:41-0400 Body weight 67.[address] Ap Morelos Work Phone: [facility] 07-21-2022 12:41-0400 Diastolic blood pressure 70 mm[Hg] Dr. Ap Morelos Work Phone: [facility] 07-21-2022 12:41-0400 Heart rate 83 /min Dr. Ap Morelos Work Phone: [facility] 07-21-2022 12:41-0400 Respiratory rate 16 /min Dr. Ap Morelos Work Phone: [facility] 07-21-2022 12:41-0400 SaO2% (BldA) [Mass fraction] 96 % Dr. Ap Morelos Work Phone: [facility] 07-21-2022 12:41-0400 Systolic blood pressure 122 mm[Hg] Dr. Ap Morelos Work Phone: [facility] Encounters Encounter Date Encounter Type Care Provider Facility Start: 12-20-2024 End: 12-20-2024 Emergency department patient visit Dr. Ap Morelos MD Work Phone: -Emergency Department Work Phone: Start: 08-22-2024 End: 08-22-[address] Ap Morelos MD -Laboratory Work Phone: Start: 08-22-2024 End: 08-22-2024 ambulatory Ap Chi Jethro Facility:[facility] Start: 02-23-2024 End: 02-23-2024 ambulatory Ap Chi Jethro Facility:[facility] Start: 01-20-2024 End: 01-20-2024 ambulatory Ap Chi Jethro Facility:[facility] [place] Start: 01-20-2024 End: 01-20-2024 ambulatory [facility] Facility:[facility] Start: 06-29-2023 End: 06-29-[address] Ap Morelos Work Phone: [facility] Work Phone: Start: 06-29-2023 End: 06-29-[address] Ap Morelos Work Phone: [facility] Work Phone: Start: 07-23-2022 End: 07-23-[address] Ap Morelos Work Phone: [facility] Work Phone: Start: 07-23-2022 End: 07-23-[address] Ap Morelos Work Phone: [facility]-Laboratory, Phy Office 3rd Flr Start: 07-21-2022 End: 07-21-[address] Ap Morelos Work Phone: [facility] Start: 01-22-2022 End: 01-22-2022 ambulatory [facility] Work Phone: Start: 01-22-2022 End: 01-22-2022 Patient encounter procedure [facility]-Laboratory, y Office 3rd Flr Procedures Date Procedure Procedure Detail Performing Clinician Start: 08-22-2024 Vitamin D, 25-hydrox y measurement Dr. Ap Morelos MD Work Phone: Comment on above: Vitamin D StatusDefi ciency: <20 ng/mL (50nmol/L)Insufficiency: 20-30 ng/mL (50-75 nmol/L)Sufficiency: 30-100 ng/mL (75-250 nmol/L)Toxicity: >100 ng/mL (>250 nmol/L) Start: 06-29-2023 Plain x-ray of pelvi s and lower extremity Dr. Ap Morelos Work Phone: Plan of Treatment Date Care Activity Detail Author Start: 12-20-2024 [facility] Patient Education ED Her's Cys t ED Soft Tissue Contusion [facility] Work Phone: Immunizations Immunization Date Immunization Notes Care Provider Fa prachity 01-05-2020 influenza, injectabl e, quadrivalent, preservative free Dr. Ap Morelos Work Phone: [facility] 01-05-2020 influenza, seasonal, injectable [facility] Payers Date Payer Category Payer Self-pay [id number] 2023 Medicare [id number] [id number] 2.16.8 [id number] Unknown [id number] 2.16.8 [id number] Unknown [id number] 2.16.8 [id number] Unknown [id number] 2.16.8 [id number] Unknown [id number] 2.16.8 [id number] Social History Date Type Detail Facility Start: 07-23-2021 End: 06-29-2023 Tobacco smoking status NHIS Unknown if ever smoked [facility] Start: 02-05-2020 None [facility] Start: 02-05-2020 With Family [facility] Start: 02-06-2020 Non-smoker [facility] Start: 1935 Sex Assigned At Female [facility] Start: 12-20-2024 Tobacco smoking stat us NHIS Never smoked tobacco (finding) [facility] Evaluation note Note Date & Type Note Facility Evaluation note No assessment information availa ble [facility] Work Phone: Evaluation note Note Date & Type Note Facility Evaluation note Diagnosis Onset Date Right hip pain acute 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 It did show a fluid collection behind your knee called a Her's cyst. You can either follow-up with orthopedics for further evaluation of this or with your primary care doctor. Generally they are just watched and monitored. The bruising should continue to heal on its own but might shift down your leg as it heals. If you develop new numbness, weakness or worsening bruising/pain please return the emergency room for repeat evaluation [facility] Work Phone: Reason for referral (narrative) Note Date & Type Note Facility Reason for referral (narrative) No reason for referral information available [facility] Work Phone: Summary Purpose Family History No Family History Records Found Relationship Condition Age at Onset Recorded Date/T tae mother Hypertension Unknown Relationship Condition Age at Onset Recorded Date/T tae mother Hypertension Unknown father Pulmonary emphysema Unknown Advance Directives No Advanced Directives Records Found Advance Directive Response Recorded Date/ Time Living Will No February 04 20 2:37pm Power of Merchandise Executive No February 05, 2020 2:37pm Advance Directive Response Recorded Date/ Time Living Will No February 15 020 12:11pm Power of Merchandise Executive No February 16, 2020 12:11pm Advance Directive Response Recorded Date/ Time Do you have a Healthcare Power of Merchandise Executive? No December 20, 2024 9:14am Chief Complaint and Reason for Visit Chief Complaint 1 Y FU Chief Complaint 1 Y FU EORDER Reason for Visit Right hip pain Carpal tunnel syndrome of left wrist Polyneuropathy Vitamin D deficiency History of stroke Chief Complaint Admit Date RIGHT LEG December 20, 2024 9:07am Additional Source Comments INFORMATION SOURCE (unrecogn ized section and content) DATE CREATED AUTHOR 09/29/[address] [facility] DATE CREATED AUTHOR AUTHOR'S EDWARD BENSON 12/26/2024 [facility] Goals (unrecognized section and content) Goals may be documented in a n alternate sectionGoals may be documented in an alternate sectionGoals may be documented in an alternate sectionGoals may be documented in an alternate section Care Teams (unrecognized sec tion and content) Team Status: Active Member Role Status Dates Dr. Ap Morelos MD Family Provider Active Dr. Ap Morelos MD Primary Care Provider Active Team Status: Inactive Member Role Status Dates Dr. Ap Morelos MD Primary Care Provider, Referring Provider Active Dr. Raudel Samaniego MD Attending Provider Active Team Status: Inactive Member Role Status Dates Dr. Ap Morelos MD Primary Care Provider, Attending Provider Active Team Status: Inactive Member Role Status Dates Dr. Ap Morelos MD Primary Care Provider Active Dr. Raudel Samaniego MD Attending Provider, Referring Provider Active Team Status: Active Member Role/Relationship Status Dates Dr. Ap Morelos MD Primary Care Provider Active Team Status: Inactive Member Role/Relationship Status Dates Dr. Ap Morelos MD Primary Care Provider Active Start: August 22, 2024 End: August 22, 2024 Dr. Ap Morelos MD Attending Provider Active Start: August 22, 2024 End: August 22, 2024 Dr. Ap Morelos MD Referring Provider Active Start: August 22, 2024 End: August 22, 2024 Team Status: Inactive Member Role/Relationship Status Dates Dr. Ap Morelos MD Primary Care Provider Active Start: December 20, 2024 End: December 20, 2024 Dr. Neyda Killian DO Emergency Provider Active Start: December 20, 2024 End: December 20, 2024 FOR RECORDS PERTAINING TO PATIENTS WHO ARE OR HAVE BEEN ENROLLED IN A CHEMICAL DEPENDENCY/SUBSTANCEABUSE PROGRAM, SOME INFORMATION MAY BE OMITTED. This clinical summary was aggregated from multiple sources. Caution should be exercised in using it in the provision of clinical care. This summary normalizes information from multiple sources, and as a consequence, information in this document may materially change the coding, format and clinical context of patient data. In addition, data may be omitted in some cases. CLINICAL DECISIONS SHOULD BE BASED ON THE PRIMARY CLINICAL RECORDS. [employer] [facility]. provides no warranty or guarantee of the accuracy or completeness of information in this document.
[2025-02-23 19:50] LABS: Xtra Tube Kwok EXTRA TUBE
== END | disposition home or self-care (01) ==
LOC: POLAB3 11:49
PROVIDERS: PCP Family Medicine Geriatric Medicine; Visit Provider Family Medicine Geriatric Medicine
DX: I10 Essential (primary) hypertension (principal); E03.9 Hypothyroidism, unspecified
CPT/HCPCS: 36415; 80053; 84443; 85025

== ENCOUNTER → 2025-03-04 | Outpatient (CLI) | payer MEDICARE, OTHER, SELFPAY ==
--- OUTSIDE RECORDS SUMMARY | 2025-03-04 08:15 | XMS RPT_ITS | CCD ---
Author Organization [facility] Care Team Providers Care Filling Winder Name Role Phone Dr. Ap Morelos Chi Primary Care Provider Jethro, Dr. Ap Gallagher Referring Provider Dr. Raudel Samaniego Attending Provider Jethro ALVARADO, Dr. Ap Gallagher Primary Care Provider Jethro ALVARADO, Dr. Ap Gallagher Attending Provider Jethro ALVARADO, Dr. Ap Gallagher Referring Provider Dr. Neyda Killian DO Emergency Provider Jethro, Ap Chi Attending Unavailable Jethro, Ap [...] Translations: [levomefolate calcium] Drug Allergy 2 Unknown [facility] (4 sources) mecobalamin Drug Allergy 2 Unknown [facility] (4 sources) Penicillins Allergy to substance 2 Pain in joints [facility] (5 sources) Pyridoxal; Translations: [pyridoxal phosphate] Drug Allergy 2 Unknown [facility] (4 sources) Sulfonamides (Antibiotic) Allergy to substance 2 Hives [facility] (1 source) mecobalamin Drug Allergy 5 [facility] (1 source) Penicillins Drug allergy (disorder) 5 [facility] (1 source) Sulfonamides (Antibiotic) Drug allergy (disorder) 5 [facility] Medications Current Medications Medication Drug [...] Department Summary on 12-20-2024 Emergency Department Summary [facility] Medical Records Department [address] [place] [address] Emergency Department Summary 12/20/24 MR#: [id number] Acct: [id number] Name: ADRIANNA SIDDIQUI JOHN Rep #: [id number] : 1935 89 From: Neyda Killian DO [...] Came in for further evaluation with family [facility] Medical History PAOD (peripheral arterial occlusive disease) [...] membranes Neck (more content not included)... Normal [facility] Venous Duplex US, Unilateral on 12-20-2024 Venous Duplex US, Unilateral [facility] [address] [place] [address] Venous Duplex US, Unilateral 12/20/24 0946 MR#: [id number] Acct: [id number] Name: ADRIANNA SIDDIQUI JOHN Rep #: [id number] : 1935 89 From: Loy Valenzuela MD [...] report was called and/or faxed to ED operations tech. VL/Venous Duplex US, Unilateral Interpretation Summary Deep [...] MD Date Dictated: 12/20/24945 Date Transcribed: 12/21/241715 Garland Maker: Signed Normal [facility] Absolute lymphocyte countOrd ered By: Ap Morelos on 08-22-2024 Lymphocytes Auto (Unsp spec) [#/Vol] 0.96 10*3/uL 0.83-4.51 [facility] Absolute neutrophil countOrd ered By: Ap Morelos on 08-22-2024 Neutrophils (Bld) [#/Vol] 2.2 10*3/uL 2.0-7.7 [facility] Anion gap in Serum or Plasma Ordered By: Ap Morelos on 08-22-2024 Anion gap [Moles/Vol] 13 mmol/L 5-15 [facility] Automated lymphocyte count a s percentage of total leukocytesOrdered By: Ap Morelos on 08-22-2024 Lymphocytes/100 WBC Auto (Unsp spec) 27.1 % - [facility] BUN/creatinine ratioOrdered By: Ap Morelos on 08-22-2024 Urea nitrogen/Creatinine [Mass ratio] 16.7 mg/mg 10- [facility] Basophil percentageOrdered B y: Ap Morelos on 08-22-2024 Basophils/100 WBC (Bld) 0.6 % 0-1 [facility] Bilirubin, totalOrdered By: Ap Morelos on 08-22-2024 Bilirubin [Mass/Vol] 0.38 mg/dL 0.00-1.30 [facility] CBC W/Diff, Automatedon 08-04 Absolute Lymph 0.96 X10 3/uL Normal 0.83-4.51 [facility] Comment on above: Performed By: #### L 506.1001, L100.0100, L500.4050, L501.9520 ####[facility] [address] [place], [address] Absolute Neut 2.2 X10 3/uL Normal 2.0-7.7 [facility] Comment on above: Performed By: #### L 506.1001, L100.0100, L500.4050, L501.9520 ####[facility] [address] [place], [address] Basophils/100 WBC (Bld) 0.6 % Normal 0-1 [facility] Comment on above: Performed By: #### L 506.1001, L100.0100, L500.4050, L501.9520 ####[facility] [address] [place], [address] Eosinophils/100 WBC (Bld) 3.7 % Normal 0-5 [facility] Comment on above: Performed By: #### L 506.1001, L100.0100, L500.4050, L501.9520 ####[facility] [address] [place], [address] Erythrocyte distribution width (RBC) [Ratio] 13.3 % Normal 11.6-14.6 [facility] Comment on above: Performed By: #### L 506.1001, L100.0100, L500.4050, L501.9520 ####[facility] [address] [place], [address] Hematocrit (Bld) [Volume fraction] 33.6 % Low 37-47 [facility] Comment on above: Performed By: #### L 506.1001, L100.0100, L500.4050, L501.9520 ####[facility] [address] [place], [address] Hemoglobin (Bld) [Mass/Vol] 11.0 g/dL Low 12.0-15.0 [facility] Comment on above: Performed By: #### L 506.1001, L100.0100, L500.4050, L501.9520 ####[facility] [address] [place], [address] IG% 0.300 Normal 0.0-0.9 [facility] Comment on above: Result Comment: IG% - Immature Granulocytes (promyelocytes, myelocytes and metamyelocytes) > 1% indicates that a LEFT SHIFT is Present. Performed By: #### L 506.1001, L100.0100, L500.4050, L501.9520 ####[facility] [address] [place], [address] Lymphocytes/100 WBC (Bld) 27.1 % Normal 19-41 [facility] Comment on above: Performed By: #### L 506.1001, L100.0100, L500.4050, L501.9520 ####[facility] [address] [place], [address] MCH (RBC) [Entitic mass] 31.9 pg Normal 27.0-32.0 [facility] Comment on above: Performed By: #### L 506.1001, L100.0100, L500.4050, L501.9520 ####[facility] [address] [place], [address] MCHC (RBC) [Mass/Vol] 32.7 g/dL Normal 32-36 [facility] Comment on above: Performed By: #### L 506.1001, L100.0100, L500.4050, L501.9520 ####[facility] [address] [place], [address] MCV (RBC) [Entitic vol] 97.4 fL Normal 81-99 [facility] Comment on above: Performed By: #### L 506.1001, L100.0100, L500.4050, L501.9520 ####[facility] [address] [place], [address] Monocytes/100 WBC (Bld) 7.3 % Normal 0-10 [facility] Comment on above: Performed By: #### L 506.1001, L100.0100, L500.4050, L501.9520 ####[facility] [address] [place], [address] Neutrophils/100 WBC (Bld) 61.0 % Normal 47-70 [facility] Comment on above: Performed By: #### L 506.1001, L100.0100, L500.4050, L501.9520 ####[facility] [address] [place], [address] Nucleated RBC (Bld) [#/Vol] 0 10*3/uL Normal 0-5 [facility] Comment on above: Performed By: #### L 506.1001, L100.0100, L500.4050, L501.9520 ####[facility] [address] [place], [address] Platelet mean volume (Bld) [Entitic vol] 8.9 fL Normal 6.2-12.0 [facility] Comment on above: Performed By: #### L 506.1001, L100.0100, L500.4050, L501.9520 ####[facility] [address] [place], [address] Platelets (Bld) [#/Vol] 184 10*3/uL Normal 150-450 [facility] Comment on above: Performed By: #### L 506.1001, L100.0100, L500.4050, L501.9520 ####[facility] [address] [place], [address] RBC (Bld) [#/Vol] 3.45 10*6/uL Low 4.2-5.4 [facility] Comment on above: Performed By: #### L 506.1001, L100.0100, L500.4050, L501.9520 ####[facility] [address] [place], [address] RDW SD 47.3 fl High 35.1-43.9 [facility] Comment on above: Performed By: #### L 506.1001, L100.0100, L500.4050, L501.9520 ####[facility] [address] [place], [address] WBC (Bld) [#/Vol] 3.5 10*3/uL Low 4.4-11.0 [facility] Comment on above: Performed By: #### L 506.1001, L100.0100, L500.4050, L501.9520 ####[facility] [address] [place], [address] Carbon dioxide, total [Moles /volume] in Central venous bloodOrdered By: Ap Morelos on 08-22-2024 CO2 [Moles/Vol] 24.3 mmol/L 21.0-32.0 [facility] Chloride assayOrdered By: Nathaniel Morelos on 08-22-2024 Chloride [Moles/Vol] 103 mmol/L 98-108 [facility] Comprehensive Metabolic Prof ilon 08-22-2024 Albumin [Mass/Vol] 4.4 g/dL Normal 3.4-4.8 [facility] Comment on above: Performed By: #### L 506.1001, L100.0100, L500.4050, L501.9520 ####[facility] [address] [place], [address] Albumin/Globulin [Mass ratio] 1.5 {ratio} Normal 0.9-2.4 [facility] Comment on above: Performed By: #### L 506.1001, L100.0100, L500.4050, L501.9520 ####[facility] [address] [place], [address] ALK PHOS 63 U/L Normal 35-104 [facility] Comment on above: Performed By: #### L 506.1001, L100.0100, L500.4050, L501.9520 ####[facility] [address] [place], [address] ALT [Catalytic activity/Vol] 16 U/L Normal <=34 [facility] Comment on above: Performed By: #### L 506.1001, L100.0100, L500.4050, L501.9520 ####[facility] [address] [place], [address] AST [Catalytic activity/Vol] 20 U/L Normal <=31 [facility] Comment on above: Performed By: #### L 506.1001, L100.0100, L500.4050, L501.9520 ####[facility] [address] [place], [address] Bilirubin [Mass/Vol] 0.38 mg/dL Normal 0.00-1.30 [facility] Comment on above: Performed By: #### L 506.1001, L100.0100, L500.4050, L501.9520 ####[facility] [address] [place], [address] BUN/CRE 16.7 RATIO Normal 10-20 [facility] Comment on above: Performed By: #### L 506.1001, L100.0100, L500.4050, L501.9520 ####[facility] [address] [place], [address] Calcium [Mass/Vol] 10.1 mg/dL Normal 7.6-11.0 [facility] Comment on above: Performed By: #### L 506.1001, L100.0100, L500.4050, L501.9520 ####[facility] [address] [place], [address] Chloride [Moles/Vol] 103 mmol/L Normal 98-108 [facility] Comment on above: Performed By: #### L 506.1001, L100.0100, L500.4050, L501.9520 ####[facility] [address] [place], [address] CO2 [Moles/Vol] 24.3 mmol/L Normal 21.0-32.0 [facility] Comment on above: Performed By: #### L 506.1001, L100.0100, L500.4050, L501.9520 ####[facility] [address] [place], [address] Creatinine [Mass/Vol] 0.98 mg/dL Normal 0.70-1.20 [facility] Comment on above: Performed By: #### L 506.1001, L100.0100, L500.4050, L501.9520 ####[facility] [address] [place], [address] GAP 13 Normal 5-15 [facility] Comment on above: Performed By: #### L 506.1001, L100.0100, L500.4050, L501.9520 ####[facility] [address] [place], [address] GFR/1.73 sq M.predicted among non-blacks MDRD (S/P/Bld) [Vol rate/Area] 56 mL/min/{1.73_m2} Low >60 [facility] Comment on above: Result Comment: mL/m in/1.73m2 CKD-EPI Creatinine Equation (2020) Performed By: #### L 506.1001, L100.0100, L500.4050, L501.9520 ####[facility] [address] [place], [address] Globulin (S) [Mass/Vol] 2.9 g/dL Normal 2.2-4.2 [facility] Comment on above: Performed By: #### L 506.1001, L100.0100, L500.4050, L501.9520 ####[facility] [address] [place], [address] Glucose [Mass/Vol] 123 mg/dL High 70-99 [facility] Comment on above: Performed By: #### L 506.1001, L100.0100, L500.4050, L501.9520 ####[facility] [address] [place], [address] Potassium [Moles/Vol] 4.2 mmol/L Normal 3.3-5.1 [facility] Comment on above: Performed By: #### L 506.1001, L100.0100, L500.4050, L501.9520 ####[facility] [address] [place], [address] Sodium [Moles/Vol] 140 mmol/L Normal 133-145 [facility] Comment on above: Performed By: #### L 506.1001, L100.0100, L500.4050, L501.9520 ####[facility] [address] [place], [address] T PROT 7.4 g/dL Normal 5.9-8.4 [facility] Comment on above: Performed By: #### L 506.1001, L100.0100, L500.4050, L501.9520 ####[facility] [address] [place], [address] Urea nitrogen [Mass/Vol] 16 mg/dL Normal -19 [facility] Comment on above: Performed By: #### L 506.1001, L100.0100, L500.4050, L501.9520 ####[facility] [address] [place], [address] Eosinophil percentageOrdered By: Ap Morelos on 08-22-2024 Eosinophils/100 WBC (Bld) 3.7 % 0-5 [facility] Erythrocyte distribution wid th ratioOrdered By: Ap Morelos on 08-22-2024 Erythrocyte distribution width (RBC) [Ratio] 13.3 % 11.6-14.6 [facility] Erythrocyte distribution wid th standard deviationOrdered By: Ap Morelos on 08-22-2024 Erythrocyte distribution width (RBC) [Ratio] 47.3 fl High 35.1-43.9 [facility] Glomerular filtration rate ( GFR) estimation/1.73 sq m using serum, plasma, or whole bOrdered By: Ap Morelos on 08-22-2024 GFR/1.73 sq M.predicted among non-blacks MDRD (S/P/Bld) [Vol rate/Area] 56 mL/min/{1.73_m2} Low >60 [facility] Comment on above: mL/min/1.73m2 CKD-EP I Creatinine Equation (2020) Hematocrit Auto (Bld) [Volum e fraction]Ordered By: Ap Morelos on 08-22-2024 Hematocrit (Bld) [Volume fraction] 33.6 % Low 37-47 [facility] Hemoglobin measurementOrdere d By: Ap Morelos on 08-22-2024 Hemoglobin (Bld) [Mass/Vol] 11.0 g/dL Low 12.0-15.0 [facility] Immature granulocytes/100 WB C Auto (Bld)Ordered By: Ap Morelos on 08-22-2024 Immature granulocytes/100 WBC (Bld) 0.300 % 0.0-0.9 [facility] Comment on above: IG% - Immature Granu locytes (promyelocytes, myelocytes and metamyelocytes) > 1% indicates that a LEFT SHIFT is Present. Laboratory - Chemistry and C hemistry - challengeOrdered By: Ap Morelos on 08-22-2024 AST [Catalytic activity/Vol] 20 U/L <32 [facility] MCV (mean corpuscular volume ) determinationOrdered By: Ap Morelos on 08-22-2024 MCV (RBC) [Entitic vol] 97.4 fL 81-99 [facility] Mean corpuscular hemoglobin (MCH) determinationOrdered By: Ap Morelos 08-22-2024 MCH (RBC) [Entitic mass] 31.9 pg 27.0-32.0 [facility] Mean corpuscular hemoglobin concentration (MCHC) determinationOrdered By: Ap Morelos 08-22-2024 MCHC (RBC) [Mass/Vol] 32.7 g/dL 32-36 [facility] Mean platelet volume determi nationOrdered By: Ap Morelos on 08-22-2024 Platelet mean volume (Bld) [Entitic vol] 8.9 fL 6.2-12.0 [facility] Monocyte percentageOrdered B y: Ap Morelos on 08-22-2024 Monocytes/100 WBC (Bld) 7.3 % 0-10 [facility] Neutrophil percentageOrdered By: Ap Morelos on 08-22-2024 Neutrophils/100 WBC (Bld) 61.0 % 47-70 [facility] Nucleated red blood cell per centageOrdered By: Ap Morelos on 08-22-2024 Nucleated RBC/100 WBC (Bld) [Ratio] 0 % 0-5 [facility] Platelet countOrdered By: Nathaniel Morelos on 08-22-2024 Platelets (Bld) [#/Vol] 184 10*3/uL 150-450 [facility] Potassium measurement (mass/ volume)Ordered By: Ap Morelos on 08-22-2024 Potassium (Unsp spec) [Mass/Vol] 4.2 mmol/L 3.3-5.1 [facility] RBC Auto (Bld) [#/Vol]Ordere d By: Ap Morelos on 08-22-2024 RBC (Bld) [#/Vol] 3.45 10*6/uL Low 4.2-5.4 [facility] Serum creatinine measurement (mass/volume)Ordered By: Ap Morelos on 08-22-2024 Creatinine [Mass/Vol] 0.98 mg/dL 0.70-1.20 [facility] Serum globulin measurementOr dered By: Ap Morelos 08-22-2024 Globulin (S) [Mass/Vol] 2.9 g/dL 2.2-4.2 [facility] Serum glucose measurement (m ass/volume)Ordered By: Ap Morelos 08-22-2024 Glucose [Mass/Vol] 123 mg/dL High 70-99 [facility] Serum or plasma alanine de la rosa otransferase (ALT) measurementOrdered By: Ap Morelos 08-22-2024 ALT [Catalytic activity/Vol] 16 U/L <35 [facility] Serum or plasma albumin casandra urement (mass/volume)Ordered By: Ap Morelos 08-22-2024 Albumin [Mass/Vol] 4.4 g/dL 3.4-4.8 [facility] Serum or plasma albumin/glob ulin mass ratioOrdered By: Ap Morelos 08-22-2024 Albumin/Globulin [Mass ratio] 1.5 {ratio} 0.9-2.4 [facility] Serum or plasma alkaline abi sphatase measurementOrdered By: Ap Morelos 08-22-2024 ALP [Catalytic activity/Vol] 63 U/L 35-104 [facility] Serum or plasma calcium casandra urement (mass/volume)Ordered By: Ap Morelos 08-22-2024 Calcium [Mass/Vol] 10.1 mg/dL 7.6-11.0 [facility] Serum or plasma urea nitroge n measurement (mass/volume)Ordered By: Ap Morelos 08-22-2024 Urea nitrogen [Mass/Vol] 16 mg/dL 4-19 [facility] Sodium levelOrdered By: Ap Morelos on 08-22-2024 Sodium [Moles/Vol] 140 mmol/L 133-145 [facility] TSH DL <= 0.005 mIU/L QnOrde red By: Ap Morelos on 08-22-2024 TSH Qn 2.050 uIU/mL 0.300-4.200 [facility] Thyroid Stim Hormone (TSH)on 08-22-2024 TSH 2.050 uIU/mL Normal 0.300-4.200 [facility] Comment on above: Performed By: #### L 506.1001, L100.0100, L500.4050, L501.9520 ####[facility] [address] [place], [place], [address] Total proteinOrdered By: Ap Morelos on 08-22-2024 Protein [Mass/Vol] 7.4 g/dL 5.9-8.4 [facility] Vitamin D,25 Hydroxyon 08-22 Vitamin D 25-OH 49.7 ng/mL Normal 30-100 [facility] Comment on above: Result Comment: Hina min D Status Deficiency: <20 ng/mL (50nmol/L) Insufficiency: 20-30 ng/mL (50-75 nmol/L) Sufficiency: 30-100 ng/mL (75-250 nmol/L) Toxicity: >100 ng/mL (>250 nmol/L) Performed By: #### L 506.1001, L100.0100, L500.4050, L501.9520 ####[facility] [address] [place], [place], [address] White blood cell (WBC) count Ordered By: Ap Morelos on 08-22-2024 WBC (Bld) [#/Vol] 3.5 10*3/uL Low 4.4-11.0 [facility] CBC W/Diff, Automatedon 02-04 Absolute Lymph 1.47 X10 3/uL Normal 0.83-4.51 [facility] Comment on above: Performed By: #### L 501.9520, L506.1000, L100.0100, L500.4050 ####[facility] [address] [place], [address] Absolute Neut 3.2 X10 3/uL Normal 2.0-7.7 [facility] Comment on above: Performed By: #### L 501.9520, L506.1000, L100.0100, L500.4050 ####[facility] [address] [place], [address] Basophils/100 WBC (Bld) 0.6 % Normal 0-1 [facility] Comment on above: Performed By: #### L 501.9520, L506.1000, L100.0100, L500.4050 ####[facility] [address] [place], [address] Eosinophils/100 WBC (Bld) 2.9 % Normal 0-5 [facility] Comment on above: Performed By: #### L 501.9520, L506.1000, L100.0100, L500.4050 ####[facility] [address] [place], [address] Erythrocyte distribution width (RBC) [Ratio] 13.4 % Normal 11.6-14.6 [facility] Comment on above: Performed By: #### L 501.9520, L506.1000, L100.0100, L500.4050 ####[facility] [address] [place], [address] Hematocrit (Bld) [Volume fraction] 36.4 % Low 37-47 [facility] Comment on above: Performed By: #### L 501.9520, L506.1000, L100.0100, L500.4050 ####[facility] [address] [place], [address] Hemoglobin (Bld) [Mass/Vol] 11.7 g/dL Low 12.0-15.0 [facility] Comment on above: Performed By: #### L 501.9520, L506.1000, L100.0100, L500.4050 ####[facility] [address] [place], [address] IG% 0.400 Normal 0.0-0.9 [facility] Comment on above: Result Comment: IG% - Immature Granulocytes (promyelocytes, myelocytes and metamyelocytes) > 1% indicates that a LEFT SHIFT is Present. Performed By: #### L 501.9520, L506.1000, L100.0100, L500.4050 ####[facility] [address] [place], [address] Lymphocytes/100 WBC (Bld) 28.1 % Normal 19-41 [facility] Comment on above: Performed By: #### L 501.9520, L506.1000, L100.0100, L500.4050 ####[facility] [address] [place], [address] MCH (RBC) [Entitic mass] 31.1 pg Normal 27.0-32.0 [facility] Comment on above: Performed By: #### L 501.9520, L506.1000, L100.0100, L500.4050 ####[facility] [address] [place], [address] MCHC (RBC) [Mass/Vol] 32.1 g/dL Normal 32-36 [facility] Comment on above: Performed By: #### L 501.9520, L506.1000, L100.0100, L500.4050 ####[facility] [address] [place], [address] MCV (RBC) [Entitic vol] 96.8 fL Normal 81-99 [facility] Comment on above: Performed By: #### L 501.9520, L506.1000, L100.0100, L500.4050 ####[facility] [address] [place], [address] Monocytes/100 WBC (Bld) 7.6 % Normal 0-10 [facility] Comment on above: Performed By: #### L 501.9520, L506.1000, L100.0100, L500.4050 ####[facility] [address] [place], [address] Neutrophils/100 WBC (Bld) 60.4 % Normal 47-70 [facility] Comment on above: Performed By: #### L 501.9520, L506.1000, L100.0100, L500.4050 ####[facility] [address] [place], [address] Nucleated RBC (Bld) [#/Vol] 0 10*3/uL Normal 0-5 [facility] Comment on above: Performed By: #### L 501.9520, L506.1000, L100.0100, L500.4050 ####[facility] [address] [place], [address] Platelet mean volume (Bld) [Entitic vol] 9.7 fL Normal 6.2-12.0 [facility] Comment on above: Performed By: #### L 501.9520, L506.1000, L100.0100, L500.4050 ####[facility] [address] [place], [address] Platelets (Bld) [#/Vol] 219 10*3/uL Normal 150-450 [facility] Comment on above: Performed By: #### L 501.9520, L506.1000, L100.0100, L500.4050 ####[facility] [address] [place], [address] RBC (Bld) [#/Vol] 3.76 10*6/uL Low 4.2-5.4 [facility] Comment on above: Performed By: #### L 501.9520, L506.1000, L100.0100, L500.4050 ####[facility] [address] [place], [address] RDW SD 47.8 fl High 35.1-43.9 [facility] Comment on above: Performed By: #### L 501.9520, L506.1000, L100.0100, L500.4050 ####[facility] [address] [place], [address] WBC (Bld) [#/Vol] 5.2 10*3/uL Normal 4.4-11.0 [facility] Comment on above: Performed By: #### L 501.9520, L506.1000, L100.0100, L500.4050 ####[facility] [address] [place], [address] Comprehensive Metabolic [facility] 02-23-2024 Albumin [Mass/Vol] 4.1 g/dL Normal 3.2-5.0 [facility] Comment on above: Performed By: #### L 501.9520, L506.1000, L100.0100, L500.4050 ####[facility] [address] [place], [address] Albumin/Globulin [Mass ratio] 1.1 {ratio} Normal 0.9-2.4 [facility] Comment on above: Performed By: #### L 501.9520, L506.1000, L100.0100, L500.4050 ####[facility] [address] [place], [address] ALK P 70 U/L Normal 45-117 [facility] Comment on above: Performed By: #### L 501.9520, L506.1000, L100.0100, L500.4050 ####[facility] [address] [place], [address] ALT [Catalytic activity/Vol] 21 U/L Normal 13-56 [facility] Comment on above: Performed By: #### L 501.9520, L506.1000, L100.0100, L500.4050 ####[facility] [address] [place], [address] AST [Catalytic activity/Vol] 13 U/L Low 15-37 [facility] Comment on above: Performed By: #### L 501.9520, L506.1000, L100.0100, L500.4050 ####[facility] [address] [place], [address] Bilirubin [Mass/Vol] 0.40 mg/dL Normal 0.20-1.00 [facility] Comment on above: Result Comment: For patients on eltrombopag therapy, use of Dimension [place] TBIL is not recommended. Performed By: #### L 501.9520, L506.1000, L100.0100, L500.4050 ####[facility] [address] [place], [address] BUN/CRE 20.4 RATIO High 10-20 [facility] Comment on above: Performed By: #### L 501.9520, L506.1000, L100.0100, L500.4050 ####[facility] [address] [place], [address] CA,Total 9.9 mg/dL Normal 8.5-10.1 [facility] Comment on above: Performed By: #### L 501.9520, L506.1000, L100.0100, L500.4050 ####[facility] [address] [place], [address] Chloride [Moles/Vol] 104 mmol/L Normal 98-107 [facility] Comment on above: Performed By: #### L 501.9520, L506.1000, L100.0100, L500.4050 ####[facility] [address] [place], [address] CO2 [Moles/Vol] 28.0 mmol/L Normal 21.0-32.0 [facility] Comment on above: Performed By: #### L 501.9520, L506.1000, L100.0100, L500.4050 ####[facility] [address] [place], [address] Creatinine [Mass/Vol] 1.08 mg/dL High 0.55-1.02 [facility] Comment on above: Result Comment: The validity of the calculated GFR GFRAA in patients over 70 years has not been determined. Clinical correlation is essential. Performed By: #### L 501.9520, L506.1000, L100.0100, L500.4050 ####[facility] [address] [place], [address] EST GFR - AA 62 mL/min Normal >60 [facility] Comment on above: Result Comment: Afri can [place] GFR Calc Performed By: #### L 501.9520, L506.1000, L100.0100, L500.4050 ####[facility] [address] [place], [address] GAP 4 Low 5-15 [facility] Comment on above: Performed By: #### L 501.9520, L506.1000, L100.0100, L500.4050 ####[facility] [address] [place], [address] GFR/1.73 sq M.predicted among non-blacks MDRD (S/P/Bld) [Vol rate/Area] 51 mL/min/{1.73_m2} Low >60 [facility] Comment on above: Result Comment: Non- GFR Calc Performed By: #### L 501.9520, L506.1000, L100.0100, L500.4050 ####[facility] [address] [place], [address] Globulin (S) [Mass/Vol] 3.6 g/dL Normal 2.2-4.2 [facility] Comment on above: Performed By: #### L 501.9520, L506.1000, L100.0100, L500.4050 ####[facility] [address] [place], [address] Glucose [Mass/Vol] 138 mg/dL High 74-106 [facility] Comment on above: Result Comment: Fast ing Glucose result greater than or equal to 126 mg/dL suggests DIABETES MELLITUS per A.D.A. criteria. Performed By: #### L 501.9520, L506.1000, L100.0100, L500.4050 ####[facility] [address] [place], [address] Potassium [Moles/Vol] 4.3 mmol/L Normal 3.5-5.1 [facility] Comment on above: Performed By: #### L 501.9520, L506.1000, L100.0100, L500.4050 ####[facility] [address] [place], [address] Sodium [Moles/Vol] 137 mmol/L Normal 136-145 [facility] Comment on above: Performed By: #### L 501.9520, L506.1000, L100.0100, L500.4050 ####[facility] [address] [place], [address] T PROT 7.7 g/dL Normal 6.4-8.2 [facility] Comment on above: Performed By: #### L 501.9520, L506.1000, L100.0100, L500.4050 ####[facility] [address] [place], [address] Urea nitrogen [Mass/Vol] 22 mg/dL High 7-18 [facility] Comment on above: Performed By: #### L 501.9520, L506.1000, L100.0100, L500.4050 ####[facility] [address] [place], [address] Thyroid Stim Hormone (TSH)on 02-23-2024 TSH 6.970 uIU/mL High 0.358-3.740 [facility] Comment on above: Performed By: #### L 501.9520, L506.1000, L100.0100, L500.4050 ####[facility] [address] [place], [address] Vitamin D,25 Hydroxyon 02-22 Vitamin D 25-OH 42.5 ng/mL Normal [facility] Comment on above: Result Comment: Hina min D 25(OH) Status Range Deficiency <20 ng/mL (50nmol/L) Insufficiency 20 - 30 ng/mL (50 - 75 nmol/L) Sufficiency 30 - 100 ng/mL (75 - 250 nmol/L) Toxicity >100 ng/mL (>250 nmol/L) Performed By: #### L 501.9520, L506.1000, L100.0100, L500.4050 ####[facility] [address] [place], [address] L5000.0012on 01-23-2024 Vitamin B12 Normal [facility] Comment on above: Result Comment: TEST RESULTS LIMITS Vitamin B12 401 pg/mL 232-1245 TESTING PERFORMED AT [facility]. ORIGINAL REPORT ON FILE IN LAB CONTAINS ADDITIONAL TEST SITE INFORMATION. Performed By: #### L 503.6550, L101.9900, L503.6030, L500.4050, L100.0100, L506.0250, L100.9950, L501.6710, L5000.0012 ####[facility] [address] [place], [address] CBC W/Diff, Automatedon 10- Absolute Lymph 0.86 X10 3/uL Normal 0.83-4.51 [facility] Comment on above: Performed By: #### L 503.6550, L101.9900, L503.6030, L500.4050, L100.0100, L506.0250, L100.9950, L501.6710, L5000.0012 #### [facility] [address] [place], [address] Absolute Neut 2.7 X10 3/uL Normal 2.0-7.7 [facility] Comment on above: Performed By: #### L 503.6550, L101.9900, L503.6030, L500.4050, L100.0100, L506.0250, L100.9950, L501.6710, L5000.0012 #### [facility] [address] [place], [address] Basophils/100 WBC (Bld) 0.5 % Normal 0-1 [facility] Comment on above: Performed By: #### L 503.6550, L101.9900, L503.6030, L500.4050, L100.0100, L506.0250, L100.9950, L501.6710, L5000.0012 #### [facility] [address] [place], [address] Eosinophils/100 WBC (Bld) 3.0 % Normal 0-5 [facility] Comment on above: Performed By: #### L 503.6550, L101.9900, L503.6030, L500.4050, L100.0100, L506.0250, L100.9950, L501.6710, L5000.0012 #### [facility] [address] [place], [address] ( Erythrocyte distribution width (RBC) [Ratio] 13.5 % Normal 11.6-14.6 [facility] Comment on above: Performed By: #### L 503.6550, L101.9900, L503.6030, L500.4050, L100.0100, L506.0250, L100.9950, L501.6710, L5000.0012 #### [facility] [address] [place], [address] (221 Hematocrit (Bld) [Volume fraction] 34.8 % Low 37-47 [facility] Comment on above: Performed By: #### L 503.6550, L101.9900, L503.6030, L500.4050, L100.0100, L506.0250, L100.9950, L501.6710, L5000.0012 #### [facility] [address] [place], [address] (291 Hemoglobin (Bld) [Mass/Vol] 11.2 g/dL Low 12.0-15.0 [facility] Comment on above: Performed By: #### L 503.6550, L101.9900, L503.6030, L500.4050, L100.0100, L506.0250, L100.9950, L501.6710, L5000.0012 #### [facility] [address] [place], [address] IG% 0.200 Normal 0.0-0.9 [facility] Comment on above: Result Comment: IG% - Immature Granulocytes (promyelocytes, myelocytes and metamyelocytes) > 1% indicates that a LEFT SHIFT is Present. Performed By: #### L 503.6550, L101.9900, L503.6030, L500.4050, L100.0100, L506.0250, L100.9950, L501.6710, L5000.0012 #### [facility] [address] [place], [address] Lymphocytes/100 WBC (Bld) 21.2 % Normal 19-41 [facility] Comment on above: Performed By: #### L 503.6550, L101.9900, L503.6030, L500.4050, L100.0100, L506.0250, L100.9950, L501.6710, L5000.0012 #### [facility] [address] [facility] [place], [address] MCH (RBC) [Entitic mass] 31.2 pg Normal 27.0-32.0 [facility] Comment on above: Performed By: #### L 503.6550, L101.9900, L503.6030, L500.4050, L100.0100, L506.0250, L100.9950, L501.6710, L5000.0012 #### [facility] [address] [place], [address] MCHC (RBC) [Mass/Vol] 32.2 g/dL Normal 32-36 [facility] Comment on above: Performed By: #### L 503.6550, L101.9900, L503.6030, L500.4050, L100.0100, L506.0250, L100.9950, L501.6710, L5000.0012 #### [facility] [address] [facility] [place], [address] MCV (RBC) [Entitic vol] 96.9 fL Normal 81-99 [facility] Comment on above: Performed By: #### L 503.6550, L101.9900, L503.6030, L500.4050, L100.0100, L506.0250, L100.9950, L501.6710, L5000.0012 #### [facility] [address] [place], [address] Monocytes/100 WBC (Bld) 7.9 % Normal 0-10 [facility] Comment on above: Performed By: #### L 503.6550, L101.9900, L503.6030, L500.4050, L100.0100, L506.0250, L100.9950, L501.6710, L5000.0012 #### [facility] [address] [place], [address] Neutrophils/100 WBC (Bld) 67.2 % Normal 47-70 [facility] Comment on above: Performed By: #### L 503.6550, L101.9900, L503.6030, L500.4050, L100.0100, L506.0250, L100.9950, L501.6710, L5000.0012 #### [facility] [address] [place], [address] Nucleated RBC (Bld) [#/Vol] 0 10*3/uL Normal 0-5 [facility] Comment on above: Performed By: #### L 503.6550, L101.9900, L503.6030, L500.4050, L100.0100, L506.0250, L100.9950, L501.6710, L5000.0012 #### [facility] [address] [place], [address] Platelet mean volume (Bld) [Entitic vol] 9.5 fL Normal 6.2-12.0 [facility] Comment on above: Performed By: #### L 503.6550, L101.9900, L503.6030, L500.4050, L100.0100, L506.0250, L100.9950, L501.6710, L5000.0012 #### [facility] [address] [place], [address] Platelets (Bld) [#/Vol] 215 10*3/uL Normal 150-450 [facility] Comment on above: Performed By: #### L 503.6550, L101.9900, L503.6030, L500.4050, L100.0100, L506.0250, L100.9950, L501.6710, L5000.0012 #### [facility] [address] [place], [address] RBC (Bld) [#/Vol] 3.59 10*6/uL Low 4.2-5.4 [facility] Comment on above: Performed By: #### L 503.6550, L101.9900, L503.6030, L500.4050, L100.0100, L506.0250, L100.9950, L501.6710, L5000.0012 #### [facility] [address] [place], [address] RDW SD 48.2 fl High 35.1-43.9 [facility] Comment on above: Performed By: #### L 503.6550, L101.9900, L503.6030, L500.4050, L100.0100, L506.0250, L100.9950, L501.6710, L5000.0012 #### [facility] [address] [place], [address] WBC (Bld) [#/Vol] 4.1 10*3/uL Low 4.4-11.0 [facility] Comment on above: Performed By: #### L 503.6550, L101.9900, L503.6030, L500.4050, L100.0100, L506.0250, L100.9950, L501.6710, L5000.0012 #### [facility] [address] [place], [place], [id number] CRPon 01-20-2024 C-REACTIVE PROT < 2.90 Normal 0.0-3.0 [facility] Comment on above: Order Comment: N Result Comment: C-Re active Protein (CRP) provides useful information for the diagnosis, therapy and monitoring of inflammatory processes and associated diseases. For the evaluation of Relative Risk for Cardiovascular Disease, a High Sensitivity CRP (HSCRP) should be ordered. Performed By: #### L 503.6550, L101.9900, L503.6030, L500.4050, L100.0100, L506.0250, L100.9950, L501.6710, L5000.0012 #### [facility] [address] [place], [place], [id number] Comprehensive Metabolic Prof ilon 01-20-2024 Albumin [Mass/Vol] 3.8 g/dL Normal 3.2-5.0 [facility] Comment on above: Order Comment: N Performed By: #### L 503.6550, L101.9900, L503.6030, L500.4050, L100.0100, L506.0250, L100.9950, L501.6710, L5000.0012 #### [facility] [address] [place], [place], [address] Albumin/Globulin [Mass ratio] 1.1 {ratio} Normal 0.9-2.4 [facility] Comment on above: Order Comment: N Performed By: #### L 503.6550, L101.9900, L503.6030, L500.4050, L100.0100, L506.0250, L100.9950, L501.6710, L5000.0012 #### [facility] [address] [place], [address] ALK P 72 U/L Normal 45-117 [facility] Comment on above: Order Comment: N Performed By: #### L 503.6550, L101.9900, L503.6030, L500.4050, L100.0100, L506.0250, L100.9950, L501.6710, L5000.0012 #### [facility] [address], [address] ALT [Catalytic activity/Vol] 17 U/L Normal 13-56 [facility] Comment on above: Order Comment: N Performed By: #### L 503.6550, L101.9900, L503.6030, L500.4050, L100.0100, L506.0250, L100.9950, L501.6710, L5000.0012 #### [facility] [address] [place], [place], [id number] AST [Catalytic activity/Vol] 16 U/L Normal 15-37 [facility] Comment on above: Order Comment: N Performed By: #### L 503.6550, L101.9900, L503.6030, L500.4050, L100.0100, L506.0250, L100.9950, L501.6710, L5000.0012 #### [facility] [address] [place], [place], [address] Bilirubin [Mass/Vol] 0.40 mg/dL Normal 0.20-1.00 [facility] Comment on above: Order Comment: N Result Comment: For patients on eltrombopag therapy, use of Dimension [place] TBIL is not recommended. Performed By: #### L 503.6550, L101.9900, L503.6030, L500.4050, L100.0100, L506.0250, L100.9950, L501.6710, L5000.0012 #### [facility] [address] [place], [address] BUN/CRE 21.0 RATIO High 10-20 [facility] Comment on above: Order Comment: N Performed By: #### L 503.6550, L101.9900, L503.6030, L500.4050, L100.0100, L506.0250, L100.9950, L501.6710, L5000.0012 #### [facility] [address] [place], [address] CA,Total 10.4 mg/dL High 8.5-10.1 [facility] Comment on above: Order Comment: N Performed By: #### L 503.6550, L101.9900, L503.6030, L500.4050, L100.0100, L506.0250, L100.9950, L501.6710, L5000.0012 #### [facility] [address] [place], [address] Chloride [Moles/Vol] 107 mmol/L Normal 98-107 [facility] Comment on above: Order Comment: N Performed By: #### L 503.6550, L101.9900, L503.6030, L500.4050, L100.0100, L506.0250, L100.9950, L501.6710, L5000.0012 #### [facility] [address] [place], [address] CO2 [Moles/Vol] 27.0 mmol/L Normal 21.0-32.0 [facility] Comment on above: Order Comment: N Performed By: #### L 503.6550, L101.9900, L503.6030, L500.4050, L100.0100, L506.0250, L100.9950, L501.6710, L5000.0012 #### [facility] [address] [place], [address] Creatinine [Mass/Vol] 0.90 mg/dL Normal 0.55-1.02 [facility] Comment on above: Order Comment: N Result Comment: The validity of the calculated GFR GFRAA in patients over 70 years has not been determined. Clinical correlation is essential. Performed By: #### L 503.6550, L101.9900, L503.6030, L500.4050, L100.0100, L506.0250, L100.9950, L501.6710, L5000.0012 #### [facility] [address] [place], [place], [address] EST GFR - AA 76 mL/min Normal >60 [facility] Comment on above: Order Comment: N Result Comment: Afri can [place] GFR Calc Performed By: #### L 503.6550, L101.9900, L503.6030, L500.4050, L100.0100, L506.0250, L100.9950, L501.6710, L5000.0012 #### [facility] [address] [place], [address] GAP 6 Normal 5-15 [facility] Comment on above: Order Comment: N Performed By: #### L 503.6550, L101.9900, L503.6030, L500.4050, L100.0100, L506.0250, L100.9950, L501.6710, L5000.0012 #### [facility] [address] [place], [address] GFR/1.73 sq M.predicted among non-blacks MDRD (S/P/Bld) [Vol rate/Area] 63 mL/min/{1.73_m2} Normal >60 [facility] Comment on above: Order Comment: N Result Comment: Non- GFR Calc Performed By: #### L 503.6550, L101.9900, L503.6030, L500.4050, L100.0100, L506.0250, L100.9950, L501.6710, L5000.0012 #### [facility] [address] [place], [address] Globulin (S) [Mass/Vol] 3.6 g/dL Normal 2.2-4.2 [facility] Comment on above: Order Comment: N Performed By: #### L 503.6550, L101.9900, L503.6030, L500.4050, L100.0100, L506.0250, L100.9950, L501.6710, L5000.0012 #### [facility] [address] [place], [address] Glucose [Mass/Vol] 128 mg/dL High 74-106 [facility] Comment on above: Order Comment: N Result Comment: Fast ing Glucose result greater than or equal to 126 mg/dL suggests DIABETES MELLITUS per A.D.A. criteria. Performed By: #### L 503.6550, L101.9900, L503.6030, L500.4050, L100.0100, L506.0250, L100.9950, L501.6710, L5000.0012 #### [facility] [address] [place], [place], [id number] (162) Potassium [Moles/Vol] 4.2 mmol/L Normal 3.5-5.1 [facility] Comment on above: Order Comment: N Performed By: #### L 503.6550, L101.9900, L503.6030, L500.4050, L100.0100, L506.0250, L100.9950, L501.6710, L5000.0012 #### [facility] [address] [place], [place], [id number] (046) Sodium [Moles/Vol] 140 mmol/L Normal 136-145 [facility] Comment on above: Order Comment: N Performed By: #### L 503.6550, L101.9900, L503.6030, L500.4050, L100.0100, L506.0250, L100.9950, L501.6710, L5000.0012 #### [facility] [address] [place], [place], [id number] (906) T PROT 7.4 g/dL Normal 6.4-8.2 [facility] Comment on above: Order Comment: N Performed By: #### L 503.6550, L101.9900, L503.6030, L500.4050, L100.0100, L506.0250, L100.9950, L501.6710, L5000.0012 #### [facility] [address] [place], [place], [id number] (135) Urea nitrogen [Mass/Vol] 19 mg/dL High 7-18 [facility] Comment on above: Order Comment: N Performed By: #### L 503.6550, L101.9900, L503.6030, L500.4050, L100.0100, L506.0250, L100.9950, L501.6710, L5000.0012 #### [facility] [address] [place], [address] Erythrocyte Sed Rateon 01-19 SED RATE 14 mm/hr Normal 0-30 [facility] Comment on above: Performed By: #### L 503.6550, L101.9900, L503.6030, L500.4050, L100.0100, L506.0250, L100.9950, L501.6710, L5000.0012 #### [facility] [address] [place], [place], [id number] Ferritinon 01-20-2024 Ferritin [Mass/Vol] 120 ng/mL Normal 8-252 [facility] Comment on above: Order Comment: N Performed By: #### L 503.6550, L101.9900, L503.6030, L500.4050, L100.0100, L506.0250, L100.9950, L501.6710, L5000.0012 #### [facility] [address] [place], [place], [id number] Folates, (Folic Acid)on 01-04 FOLATES 16.20 ng/mL Normal 3.1-55.4 [facility] Comment on above: Order Comment: N Performed By: #### L 503.6550, L101.9900, L503.6030, L500.4050, L100.0100, L506.0250, L100.9950, L501.6710, L5000.0012 ####[facility] [address] [place], [place], [address] Iron+Iron Binding Capacityon 01-20-2024 Iron [Mass/Vol] 62 ug/dL Normal 50-170 [facility] Comment on above: Order Comment: N Performed By: #### L 503.6550, L101.9900, L503.6030, L500.4050, L100.0100, L506.0250, L100.9950, L501.6710, L5000.0012 #### [facility] [address] [place], [place], [id number] IRON SATURATION 18.6 Normal 15.0-55.0 [facility] Comment on above: Order Comment: N Performed By: #### L 503.6550, L101.9900, L503.6030, L500.4050, L100.0100, L506.0250, L100.9950, L501.6710, L5000.0012 #### [facility] [address] [place], [place], [address] TIBC 333 ug/dL Normal 250-450 [facility] Comment on above: Order Comment: N Performed By: #### L 503.6550, L101.9900, L503.6030, L500.4050, L100.0100, L506.0250, L100.9950, L501.6710, L5000.0012 #### [facility] [address] [place], [address] Oncology Visit Reporton 01-04 Oncology Visit Report [facility] [address] [place], [place] [address] OFFICE VISIT Date of Service: 01/20/24 1140 MR#: [id number] Acct: [id number] Name: ADRIANNA SIDDIQUI JOHN Rep #: [id number] : 1935 From: Jerardo Hannah MD Age/Sex: 88/F [place] [facility] [place] Status: Signed HPI Subjective Date of Service 01/20/24 Chief Complaint F/u for anemia History of Present Illness 88-year-old woman was found to have anemia, started on oral iron and referred for further evaluation and management. She is on oral Iron and Vitamin B12. Had blood work and comes for follow up. [facility] Medical History PAOD (peripheral arterial [...] you fal (more content not included)... Normal [facility] Retic Panelon 01-20-2024 IM RET FRACTION 13.40 Normal 3.00-15.90 [facility] Comment on above: Performed By: #### L 503.6550, L101.9900, L503.6030, L500.4050, L100.0100, L506.0250, L100.9950, L501.6710, L5000.0012 #### [facility] [address] [place], [place], [id number] RET-HE 32.8 pg Normal 30-35 [facility] Comment on above: Performed By: #### L 503.6550, L101.9900, L503.6030, L500.4050, L100.0100, L506.0250, L100.9950, L501.6710, L5000.0012 #### [facility] [address] [place], [place], [id number] Retic Count 1.70 High 0.5-1.5 [facility] Comment on above: Performed By: #### L 503.6550, L101.9900, L503.6030, L500.4050, L100.0100, L506.0250, L100.9950, L501.6710, L5000.0012 #### [facility] [address] [place], [address] Absolute lymphocyte countOrd ered By: Dr. Morelos on 07-23-2022 Lymphocytes Auto (Unsp spec) [#/Vol] 1.14 10*3/uL 0.83-4.51 [facility] Basophil percentageOrdered B y: Dr. Morelos on 07-23-2022 Basophils/100 WBC (Bld) 0.6 % 0-1 [facility] Bilirubin [Mass/Vol] 0.60 mg/dL 0.20-1.00 [facility] Comment on above: For patients on eltr ombopag therapy, use of Dimension [place] TBIL is not recommended. Chloride [Moles/Vol] 105 mmol/L 98-107 [facility] Eosinophils/100 WBC (Bld) 4.0 % 0-5 [facility] Glucose [Mass/Vol] 144 mg/dL 74-106 [facility] Comment on above: Fasting Glucose resu lt greater than or equal to 126 mg/dL suggests DIABETES MELLITUS per A.D.A. criteria. Neutrophils (Bld) [#/Vol] 3.2 10*3/uL 2.0-7.7 [facility] Neutrophils/100 WBC (Bld) 64.0 % 47-70 [facility] Potassium [Moles/Vol] 4.2 mmol/L 3.5-5.1 [facility] Protein [Mass/Vol] 7.5 g/dL 6.4-8.2 [facility] Sodium [Moles/Vol] 137 mmol/L 136-145 [facility] WBC (Bld) [#/Vol] 5.0 10*3/uL 4.4-11.0 [facility] Blood erythrocytes count (nu mber/volume)Ordered By: Dr. Morelos on 07-23-2022 RBC (Bld) [#/Vol] 3.99 10*6/uL 4.2-5.4 [facility] Blood hemoglobin measurement (mass/volume)Ordered By: Dr. Morelos on 07-23-2022 Hemoglobin (Bld) [Mass/Vol] 12.1 g/dL 12.0-15.0 [facility] Blood lymphocytes/100 leukoc ytesOrdered By: Dr. Morelos on 07-23-2022 Lymphocytes/100 WBC (Bld) 22.7 % 19-41 [facility] Blood monocytes/100 leukocyt esOrdered By: Dr. Morelos on 07-23-2022 Monocytes/100 WBC (Bld) 8.5 % 0-10 [facility] Blood platelet mean volumeOr dered By: Dr. Morelos on 07-23-2022 Platelet mean volume (Bld) [Entitic vol] 10.0 fL 6.2-12.0 [facility] [facility] of [facility]rocyte mean corpuscular volume (MCV)Ordered By: Dr. Morelos on 07-23-2022 MCV (RBC) [Entitic vol] 96.5 fL 81-99 [facility] Hematocrit Auto (Bld) [Volum e fraction]Ordered By: Dr. Morelos on 07-23-2022 Hematocrit (Bld) [Volume fraction] 38.5 % 37-47 [facility] Laboratory - Chemistry and C hemistry - challengeOrdered By: Dr. Morelos on 07-23-2022 ALP [Catalytic activity/Vol] 78 U/L 45-117 [facility] ALT [Catalytic activity/Vol] 31 U/L 13-56 [facility] CO2 [Moles/Vol] 26.0 mmol/L 21.0-32.0 [facility] Globulin (S) [Mass/Vol] 3.5 g/dL 2.2-4.2 [facility] Urea nitrogen/Creatinine [Mass ratio] 19.6 mg/mg 10-20 [facility] - Hematology and Cell countsOrdered By: Dr. Morelos on 07-23-2022 Erythrocyte distribution width (RBC) [Entitic vol] 47.1 fL 35.1-43.9 [facility] Erythrocyte distribution width (RBC) [Ratio] 13.3 % 11.6-14.6 [facility] Immature granulocytes/100 WBC (Bld) 0.200 % 0.0-0.9 [facility] Comment on above: IG% - Immature Granu locytes (promyelocytes, myelocytes and metamyelocytes) > 1% indicates that a LEFT SHIFT is Present. MCH (RBC) [Entitic mass] 30.3 pg 27.0-32.0 [facility] Nucleated RBC/100 WBC (Bld) [Ratio] 0 % 0-5 [facility] Auto (RBC) [Mass/Vol]Or dered By: Dr. Morelos on 07-23-2022 MCHC (RBC) [Mass/Vol] 31.4 g/dL 32-36 [facility] No Panel InformationOrdered By: Dr. Morelos on 07-23-2022 Estimated GFR (MDRD) Amer 70 mL/min >60 [facility] Comment on above: GFR Calc Estimated GFR (MDRD) Non-Af Amer 58 mL/min >60 [facility] Comment on above: Non- GFR Calc Thyroid Stimulating Hormone (TSH) 1.53 uIU/mL 0.358-3.74 [facility] Vitamin D 25-Hydroxy 54.7 ng/mL [facility] Comment on above: Vitamin D 25(OH) Sta tus Range Deficiency <20 ng/mL (50nmol/L) Insufficiency 20 - 30 ng/mL (50 - 75 nmol/L) Sufficiency 30 - 100 ng/mL (75 - 250 nmol/L) Toxicity >100 ng/mL (>250 nmol/L) Platelets bldOrdered By: Dr. Morelos on 07-23-2022 Platelets (Bld) [#/Vol] 247 10*3/uL 150-450 [facility] Serum or plasma albumin casandra urement (mass/volume)Ordered By: Dr. Morelos on 07-23-2022 Albumin [Mass/Vol] 4.0 g/dL 3.2-5.0 [facility] Serum or plasma albumin/glob ulin mass ratioOrdered By: Dr. Morelos on 07-23-2022 Albumin/Globulin [Mass ratio] 1.1 {ratio} 0.9-2.4 [facility] Serum or plasma calcium casandra urement (mass/volume)Ordered By: Dr. Morelos on 07-23-2022 Calcium [Mass/Vol] 9.8 mg/dL 8.5-10.1 [facility] Serum or plasma creatinine m easurement (mass/volume)Ordered By: Dr. Morelos on 07-23-2022 Creatinine [Mass/Vol] 0.97 mg/dL 0.55-1.02 [facility] Comment on above: The validity of the calculated GFR & GFRAA in patients over 70 years has not been determined. Clinical correlation is essential. Serum or plasma urea nitroge n measurement (mass/volume)Ordered By: Dr. Morelos on 07-23-2022 Urea nitrogen [Mass/Vol] 19 mg/dL 7-18 [facility] Thin prep Papanicolaou smear with manual screeningOrdered By: Dr. Morelos on 07-23-2022 Thin prep Papanicolaou smear with manual screening 18 U/L 15-37 [facility] Thin prep Papanicolaou smear with manual screening 6 5-15 [facility] Absolute lymphocyte counton 01-22-2022 Lymphocytes Auto (Unsp spec) [#/Vol] 1.23 10*3/uL 0.83-4.51 [facility] Work Phone: Basophil percentageon 2021 Basophils/100 WBC (Bld) 0.7 % 0-1 [facility] Work Phone: Bilirubin [Mass/Vol] 0.50 mg/dL 0.20-1.00 [facility] Work Phone: Comment on above: For patients on eltr ombopag therapy, use of Dimension [place] TBIL is not recommended. Chloride [Moles/Vol] 104 mmol/L 98-107 [facility] Work Phone: Eosinophils/100 WBC (Bld) 3.2 % 0-5 [facility] Work Phone: Glucose [Mass/Vol] 136 mg/dL 74-106 [facility] Work Phone: Comment on above: Fasting Glucose resu lt greater than or equal to 126 mg/dL suggests DIABETES MELLITUS per A.D.A. criteria. Neutrophils (Bld) [#/Vol] 3.7 10*3/uL 2.0-7.7 [facility] Work Phone: Neutrophils/100 WBC (Bld) 65.2 % 47-70 [facility] Work Phone: Potassium [Moles/Vol] 4.1 mmol/L 3.5-5.1 [facility] Work Phone: Protein [Mass/Vol] 7.7 g/dL 6.4-8.2 [facility] Work Phone: [phone] Sodium [Moles/Vol] 140 mmol/L 136-145 [facility] Work Phone: [phone] WBC (Bld) [#/Vol] 5.7 10*3/uL 4.4-11.0 [facility] Work Phone: [phone] Blood erythrocytes count (nu mber/volume)on 01-22-2022 RBC (Bld) [#/Vol] 3.83 10*6/uL 4.2-5.4 [facility] Work Phone: [phone] Blood hemoglobin measurement (mass/volume)on 01-22-2022 Hemoglobin (Bld) [Mass/Vol] 11.6 g/dL 12.0-15.0 [facility] Work Phone: [phone] Blood lymphocytes/100 leukoc yteson 01-22-2022 Lymphocytes/100 WBC (Bld) 21.7 % 19-41 [facility] Work Phone: [phone] Blood monocytes/100 leukocyt eson 01-22-2022 Monocytes/100 WBC (Bld) 8.8 % 0-10 [facility] Work Phone: Blood platelet mean volumeon 01-22-2022 Platelet mean volume (Bld) [Entitic vol] 10.2 fL 6.2-12.0 [facility] Work Phone: [phone] Determination of erythrocyte mean corpuscular volume (MCV)on 01-22-2022 MCV (RBC) [Entitic vol] 96.3 fL 81-99 [facility] Work Phone: Hematocrit Auto (Bld) [Volum e fraction]on 01-22-2022 Hematocrit (Bld) [Volume fraction] 36.9 % 37-47 [facility] Work Phone: Laboratory - Chemistry and C hemistry - challengeon 01-22-2022 ALP [Catalytic activity/Vol] 72 U/L 45-117 [facility] Work Phone: [phone] ALT [Catalytic activity/Vol] 25 U/L 13-56 [facility] Work Phone: [phone] CO2 [Moles/Vol] 27.0 mmol/L 21.0-32.0 [facility] Work Phone: [phone] Globulin (S) [Mass/Vol] 3.5 g/dL 2.2-4.2 [facility] Work Phone: [phone] Urea nitrogen/Creatinine [Mass ratio] 18.1 mg/mg 10-20 [facility] Work Phone: [phone] Laboratory - Hematology and Cell countson 01-22-2022 Erythrocyte distribution width (RBC) [Entitic vol] 46.6 fL 35.1-43.9 [facility] Work Phone: [phone] Erythrocyte distribution width (RBC) [Ratio] 13.3 % 11.6-14.6 [facility] Work Phone: [phone] Immature granulocytes/100 WBC (Bld) 0.400 % 0.0-0.9 [facility] Work Phone: [phone] Comment on above: IG% - Immature Granu locytes (promyelocytes, myelocytes and metamyelocytes) > 1% indicates that a LEFT SHIFT is Present. MCH (RBC) [Entitic mass] 30.3 pg 27.0-32.0 [facility] Work Phone: [phone] Nucleated RBC/100 WBC (Bld) [Ratio] 0 % 0-5 [facility] Work Phone: [phone] MCHC Auto (RBC) [Mass/Vol]on 01-22-2022 MCHC (RBC) [Mass/Vol] 31.4 g/dL 32-36 [facility] Work Phone: [phone] Panel Informationon 01-22 Estimated GFR (MDRD) Amer 64 mL/min >60 [facility] Work Phone: [phone] Comment on above: GFR Calc Estimated GFR (MDRD) Non-Af Amer 53 mL/min >60 [facility] Work Phone: [phone] Comment on above: Non- GFR Calc Thyroid Stimulating Hormone (TSH) 1.20 uIU/mL 0.358-3.74 [facility] Work Phone: Vitamin D 25-Hydroxy 61.7 ng/mL [facility] Work Phone: Comment on above: Vitamin D 25(OH) Sta tus Range Deficiency <20 ng/mL (50nmol/L) Insufficiency 20 - 30 ng/mL (50 - 75 nmol/L) Sufficiency 30 - 100 ng/mL (75 - 250 nmol/L) Toxicity >100 ng/mL (>250 nmol/L) Platelets bldon 01-22-2022 Platelets (Bld) [#/Vol] 236 10*3/uL 150-450 [facility] Work Phone: Serum or plasma albumin casandra urement (mass/volume)on 01-22-2022 Albumin [Mass/Vol] 4.2 g/dL 3.2-5.0 [facility] Work Phone: Serum or plasma albumin/glob ulin mass ratioon 01-22-2022 Albumin/Globulin [Mass ratio] 1.2 {ratio} 0.9-2.4 [facility] Work Phone: Serum or plasma calcium casandra urement (mass/volume)on 01-22-2022 Calcium [Mass/Vol] 10.0 mg/dL 8.5-10.1 [facility] Work Phone: Serum or plasma creatinine m easurement (mass/volume)on 01-22-2022 Creatinine [Mass/Vol] 1.05 mg/dL 0.55-1.02 [facility] Work Phone: Comment on above: The validity of the calculated GFR & GFRAA in patients over 70 years has not been determined. Clinical correlation is essential. Serum or plasma urea nitroge n measurement (mass/volume)on 01-22-2022 Urea nitrogen [Mass/Vol] 19 mg/dL 7-18 [facility] Work Phone: Thin prep Papanicolaou smear with manual screeningon 01-22-2022 Thin prep Papanicolaou smear with manual screening 18 U/L 15-37 [facility] Work Phone: Thin prep Papanicolaou smear with manual screening 9 5-15 [facility] Work Phone: CNPAlyce 04-23-2017 CNPN Telephone ([facility]) ADRIANNA SIDDIQUI ([id number]) 1935 FDate Time Provider Department04/23/17 HA PATRICK [facility] During your visit today, we recorded the [...] by DENNIS LIANG MA on 04/23/17 Normal [facility] OBSOLETEon 04-21-2017 OBSOLETE Refill ([facility]) ADRIANNA SIDDIQUI ([id number]) 1935 FDate Time Provider Department04/21/17 [facility] During your visit today, we recorded the [...] Status:Closed by HA PATRICK MD on 04/23/17 [facility] OBSOLETEon 04-17-2017 OBSOLETE Refill ([facility]) ADRIANNA SIDDIQUI ([id number]) 1935 FDa Time Provider Department04/17/17 HA PATRICK [facility] During your visit today, we recorded the [...] 08/04/2006SULFA (SULFONAMIDE ANTIBIOTICS) 08/04/2006Date Reviewed: 02/01/2016Reviewed by: aCthryn Crowell Ma - Fully AssessedReason for Visit: [...] by HA PATRICK MD on 04/17/17 Normal [facility] OBSOLETEon 04-07-2017 OBSOLETE Refill ([facility]) ADRIANNA SIDDIQUI ([id number]) 1935 FDate Time Provider Department04/07/17 JAMIL GARCIA ([facility]) [facility] During your visit today, we recorded the [...] by HA PATRICK MD on 04/07/17 Normal [facility] Vital Signs Date Time Vital Sign Value Performing Clinician Brennan gaytan 12-20-2024 10:29-0400 Body temperature 98 [degF] Dr. Ap Morelos MD Work Phone: [facility] 12-20-2024 10:29-0400 Diastolic blood pressure 59 mm[Hg] Dr. Ap Morelos MD Work Phone: [facility] 12-20-2024 10:29-0400 Heart rate 97 /min Dr. Ap Morelos MD Work Phone: [facility] 12-20-2024 10:29-0400 Respiratory rate 16 /min Dr. Ap Morelos MD Work Phone: [facility] 12-20-2024 10:29-0400 SaO2% (BldA) [Mass fraction] 97 % Dr. Ap Morelos MD Work Phone: [facility] 12-20-2024 10:29-0400 Systolic blood pressure 145 mm[Hg] Dr. Ap Morelos MD Work Phone: [phone])978-837032 [place] [address] 12-20-2024 09:10-0400 Body mass index (BMI) [Ratio] 26.8 kg/m2 Dr. Ap Morelos MD Work Phone: [phone])685-671632 [place] [address] 12-20-2024 09:10-0400 Body weight 61.[address] Ap Morelos MD Work Phone: [phone] [place] [address] 12-20-2024 09:08-0400 Body height 152.[address] Ap Morelos MD Work Phone: [phone])178-521489 [place] [address] 06-29-2023 12:59-0400 Body temperature 98.2 [degF] Dr. Ap Morelos Work Phone: 3([phone])393-659889 [place] [address] 06-29-2023 12:59-0400 Body weight 65.[address] Ap Morelos Work Phone: [phone])268-406932 [place] [address] 06-29-2023 12:59-0400 Diastolic blood pressure 68 mm[Hg] Dr. Ap Morelos Work Phone: 4(428)862-895632 [place] [address] 06-29-2023 12:59-0400 Heart rate 94 /min Dr. Ap Morelos Work Phone: [phone])394-738632 [place] [address] 06-29-2023 12:59-0400 Respiratory rate 14 /min Dr. Ap Morelos Work Phone: [phone])535-620632 [place] [address] 06-29-2023 12:59-0400 SaO2% (BldA) [Mass fraction] 96 % Dr. Ap Morelos Work Phone: [phone] [place] [address] 06-29-2023 12:59-0400 Systolic blood pressure 150 mm[Hg] Dr. Ap Morelos Work Phone: [phone])796-247332 [place] [address] 07-21-2022 12:41-0400 Body height 157.[address] Ap Morelos Work Phone: [phone] [place] [address] 07-21-2022 12:41-0400 Body mass index (BMI) [Ratio] 27.1 kg/m2 Dr. Ap Morelos Work Phone: [facility] 07-21-2022 12:41-0400 Body temperature 97.8 [degF] Dr. Ap Morelos Work Phone: [facility] 07-21-2022 12:41-0400 Body weight 67.[address] Ap Morelos Work Phone: [facility] 07-21-2022 12:41-0400 Diastolic blood pressure 70 mm[Hg] Dr. Ap Morelos Work Phone: [facility] 07-21-2022 12:41-0400 Heart rate 83 /min Dr. Ap Morelos Work Phone: [facility] 07-21-2022 12:41-0400 Respiratory rate 16 /min Dr. Ap Morelos Work Phone: [facility] 07-21-2022 12:41-0400 SaO2% (BldA) [Mass fraction] 96 % Dr. Ap Morelos Work Phone: [facility] 07-21-2022 12:41-0400 Systolic blood pressure 122 mm[Hg] Dr. Ap Morelos Work Phone: [facility] Encounters Encounter Date Encounter Type Care Provider Facility Start: 12-20-2024 End: 12-20-2024 Emergency department patient visit Dr. Ap Morelos MD Work Phone: -Emergency Department Work Phone: Start: 08-22-2024 End: 08-22-[address] Ap Morelos MD -Laboratory Work Phone: Start: 08-22-2024 End: 08-22-2024 ambulatory Ap Chi Jethro Facility:[facility] Start: 02-23-2024 End: 02-23-2024 ambulatory Ap Chi Jethro Facility:[facility] Start: 01-20-2024 End: 01-20-2024 ambulatory Ap Chi Jethro Facility[facility] Start: 01-20-2024 End: 01-20-2024 ambulatory [facility] Facility:[facility] Start: 06-29-2023 End: 06-29-[address] Ap Morelos Work Phone: [facility] Work Phone: Start: 06-29-2023 End: 06-29-[address] Ap Morelos Work Phone: [facility] Work Phone: Start: 07-23-2022 End: 07-23-[address] Ap Morelos Work Phone: [facility] Work Phone: Start: 07-23-2022 End: 07-23-[address] Ap Morelos Work Phone: [facility]-Laboratory, Phy Office 3rd Flr Start: 07-21-2022 End: 07-21-[address] Ap Morelos Work Phone: [facility] Start: 01-22-2022 End: 01-22-2022 ambulatory [facility] Work Phone: Start: 01-22-2022 End: 01-22-2022 Patient encounter procedure [facility]-Laboratory, y Office 3rd Flr Procedures Date [...] Date Care Activity Detail Author Start: 12-20-2024 [facility] Patient Education ED Her's Cys t ED Soft Tissue Contusion [facility] Work Phone: Immunizations Immunization Date Immunization Notes Care Provider Fa prachity 01-05-2020 influenza, injectabl e, quadrivalent, preservative free Dr. Ap Morelos Work Phone: [facility] 01-05-2020 influenza, seasonal, injectable [facility] Payers Date Payer Category Payer Self-pay [id number] 2023 Medicare [id number] 2023 [id number] Unknown [id number] Unknown [id number] Unknown [id number] [id number] Unknown [id number] Unknown [id number] Social History Date Type Detail Facility Start: 07-23-2021 End: 06-29-2023 Tobacco smoking status NHIS Unknown if ever smoked [facility] Start: 02-05-2020 None [facility] Start: 02-05-2020 With Family [facility] Start: 02-06-2020 Non-smoker [facility] Start: 1935 Sex Assigned At Female [facility] Start: 12-20-2024 Tobacco smoking stat us NHIS Never smoked tobacco (finding) [facility] Evaluation note Note Date & Type Note Facility Evaluation note No assessment information availa ble [facility] Work Phone: Evaluation note Note Date & Type Note Facility Evaluation note Diagnosis Onset Date Right hip pain acute 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 Polyneuropathy chronic Vitamin D deficiency chronic History of stroke resolved [facility] Work Phone: Hospital Discharge instructions Note [...] return the emergency room for repeat evaluation [facility] Work Phone: Reason for referral (narrative) Note Date & Type Note Facility Reason for referral (narrative) No reason for referral information available [facility] Work Phone: Summary Purpose Family History No Family History Records Found Relationship Condition Age at Onset Recorded Date/T tae mother Hypertension Unknown Relationship Condition Age at Onset Recorded Date/T tae mother Hypertension Unknown father Pulmonary emphysema Unknown Advance Directives No Advanced Directives Records Found Advance Directive Response Recorded Date/ Time Living Will No February 04 20 2:37pm Power of Geography Professor No February 05, 2020 2:37pm Advance Directive Response Recorded Date/ Time Living Will No February 15 020 12:11pm Power of Geography Professor No February 16, 2020 12:11pm Advance Directive Response Recorded Date/ Time Do you have a Healthcare Power of Geography Professor? No December 20, 2024 9:14am Chief Complaint [...] section and content) DATE CREATED AUTHOR 09/29/2017 [facility] DATE CREATED AUTHOR AUTHOR'S EDWARD BENSON 12/26/2024 [facility] Goals (unrecognized section and content) Goals may [...] BE BASED ON THE PRIMARY CLINICAL RECORDS. [employer] [facility]. provides no warranty or guarantee of the accuracy or completeness of information in this document.
== END | disposition home or self-care (01) ==
LOC: LABSPEC 08:13
PROVIDERS: PCP Family Medicine Geriatric Medicine; Referring Provider Family Medicine Geriatric Medicine; Visit Provider Family Medicine Geriatric Medicine
DX: D50.9 Iron deficiency anemia, unspecified (principal)
CPT/HCPCS: 82274

== ENCOUNTER → 2025-03-14 | Outpatient (CLI) | payer MEDICARE, OTHER, SELFPAY ==
[2025-03-14 11:15] LABS: Hematocrit 30.9 % (37-47); Hemoglobin 10.1 g/dL (12.0-15.0); Immature Granulocytes Count 0.010 X10^3/uL (0.0-0.0); Immature Reticulocyte Fraction 13.20 % (3.00-15.90); Mean Corp Hgb Conc 32.7 g/dL (32-36); Mean Corpuscular Volume 99.4 fL (81-99); Mean Platelet Vol. 9.1 fl (6.2-12.0); NRBC Flagged by Analyzer 0 % (0-5); Platelet Count 183 K/mm3 (150-450); RBC Distribution Width CV 13.4 % (11.6-14.6); RBC Distribution Width SD 48.5 fl (35.1-43.9); Red Blood Count 3.11 M/mm3 (4.2-5.4); Reticulocyte Count 1.45 % (0.5-1.5); White Blood Count 3.4 K/mm3 (4.4-11.0)
[2025-03-14 11:54] LABS: AST(SGOT) 17 U/L (<=31); Alanine Aminotransfer ALT/SGPT 15 U/L (<=34); Albumin, Serum 4.3 g/dL (3.4-4.8); Alkaline Phosphatase 58 U/L (35-104); Anion Gap 11 (5-15); BUN 13 mg/dL (4-19); BUN/Creat Ratio 14.9 RATIO (10-20); Calcium,Total 10.3 mg/dL (7.6-11.0); Carbon Dioxide 26.0 mmol/L (21.0-32.0); Chloride 105 mmol/L (98-108); Ferritin 149 ng/mL (22-378); Globulin 3.0 g/dL (2.2-4.2); Glucose 120 mg/dL (70-99); Potassium 4.2 mmol/L (3.3-5.1); Vitamin B12 332 pg/mL (180-914)
[2025-03-14 12:18] LABS: CRP < 3.00 mg/L (0.0-3.0)
[2025-03-14 12:31] LABS: Iron 60 ug/dL (50-170); Iron Binding Capacity,Total 318 ug/dL (250-450); Iron Binding Capacity,Unsat 258 ug/dL (228-428); LDH 167 U/L (84-246)
== END | disposition home or self-care (01) ==
LOC: LAB 10:47
PROVIDERS: PCP Family Medicine Geriatric Medicine; Referring Provider Internal Medicine Medical Oncology; Visit Provider Internal Medicine Medical Oncology
DX: D64.9 Anemia, unspecified (principal)
CPT/HCPCS: 36415; 80053; 82607; 82728; 83540; 83550; 83615; 85025; 85045; 86140